=== PATIENT | male | born 1955 | race African-American/Black ===

== ENCOUNTER 2016-04-15 03:14 | Inpatient (IN) | payer MEDICARE ==
[2016-04-15] VITALS (18 sets, daily range): BP systolic 121–188; BP diastolic 70–97
[~2016-04-15] VITALS: Ht 167.6 cm; Wt 64.7 kg
[~2016-04-15 03:14] MED LIST: ANUSOL-HC 2.5%30 GM RC; ASPIRIN EC81 M1 PO; BAYER CHEWABLE81 MG PO; BENADRYL25 MG PO; CARAFATE1 G PO; CARBIDOPA-LEVO1 EACH PO; CARDIZEM CD180 MG PO; CARDIZEM CD240 MG PO; CARDIZEM CD360 MG PO; CARDIZEM LA360 MG PO; CARDIZEM120 MG PO; CATAPRES0.1 MG PO; COLACE100 MG PO; CORDARONE200 MG PO; COREG 3.1253.125 MG PO; COREG12.5 MG PO; COUMADIN5 MG PO; CYCLOBENZAPRINE10 MG PO; DESERYL100 MG PO; FLAGYL500 MG PO; HYDRALAZINE HCL25 MG PO; HYDRALAZINE HCL50 MG; HYDROCODONE-APA1 TAB PO; IMODIUM A-D2 MG PO; LASIX40 MG PO; LISINOPRIL5 MG PO; MEGACE400 MG/10 PO; MIRALAX17 GM PO; NEPHRO-VITE RX1 TAB PO; NITROSTAT0.4 MG SL; NORCO 7.5/325 T1 TA1 PO; OMNICEF300 MG PO; PRINIVIL20 MG PO; PROCRIT/EP10000 UNIT SQ; PROTONIX40 MG PO; PROVENTIL/2.5 MG/3 M INH; RENAGEL800 MG PO; RESTORIL15 MG PO; ROCALTROL0.25 MCG PO; TOPROL XL50 MG; TOPROL XL50 MG PO; TUMS500 MG PO; WATER PILL; ZOFRAN4 MG PO
[2016-04-15 04:08] LABS: BASOPHILS 0.5 % (0.0-2.0); EOSINOPHILS 3.5 % (0-7); HEMATOCRIT 34.5 % (42.0-54.0); HEMOGLOBIN 11.1 g/dL (13.5-17.5); IMMATURE GRANULOCYTES 0.2 % (0-5); LYMPHOCYTES 21.4 % (15-50); MCH 31.4 pg (26.0-34.0); MCHC 32.2 g/dL (31.0-37.0); MCV 97.5 fL (80.0-100.0); MEAN PLATELET VOLUME 12.2 fL (7.4-10.4); MONOCYTES 11.8 % (2-11); NEUTROPHILS 62.6 % (40-80); PLATELET COUNT 211 10x3/uL (130-400); RBC 3.54 10x6/uL (4.20-6.10); RDW 14.9 % (11.5-14.5); WBC 6.6 10x3/uL (4.8-10.8)
[2016-04-15 04:37] LABS: ALBUMIN 3.3 g/dL (3.4-5.0); BILIRUBIN - TOTAL 1.15 mg/dL (0.2-1.3); CALCIUM 8.9 mg/dL (8.5-10.1); CARBON DIOXIDE 23.4 mmol/L (21.0-32.0); CREATININE - SERUM 13.5 mg/dL (0.6-1.3); PROTEIN - SERUM 7.8 g/dL (6.4-8.2); TROPONIN-I 0.04 ng/mL (0.000-0.060)
[2016-04-15 04:43] LABS: ANION GAP 22.3 mmol/L (8-16); POTASSIUM - SERUM 6.7 mmol/L (3.5-5.1)
--- NOTE | 2016-04-15 05:36 | NUR ---
PT ARRIVED ON UNIT VIA STRETCHER, PT IS ALERT AND ORIENTED, ON 2L NC WITH 98% O2 SAT. PT HOOKED TO MONITORS, CALL LIGHT EXPLAINED TO PT, WILL CON'T TO MONITOR
[2016-04-15] MEDS ORDERED: CHRONULAC30 ML PO (09:57)
[2016-04-15] MEDS ORDERED: MIRALAX17 GM PO (09:58)
--- NOTE | 2016-04-15 13:14 | NUR ---
Mr. Saha had bedside hemodialysis today via his left upper arm av fistula. Average blood flow was 400 mls/minute. Net fluid removed was 3000 mls. Used a 1 k bath fot two hours. Post vital signs were: B/P: 150/87, HR: 90, Temp: 98.0, Resps: 18.
--- NOTE | 2016-04-15 15:04 | NUR ---
CM MET W/ PATIENT AFTER HIS HD. HE IS TIRED BUT ALERT AND ORIENTED. HE LIVES ALONE IN [place], [place]. HAS A BROTHER AND SISTER FROM [place]. HIS SISTER WILL PROVIDE TRANSPORTATION TO HOME AT [facility]. HE RECEIVES HD AT THE [facility] ON /. STATES HE IS COMPLAINT W/ HIS TREATMENTS. THE PATIENT DRIVES HIMSELF TO HD. HE STATES HE HAS TO WAIT SO LONG FOR THE TRANSPORT VAN AND IS VERY TIRED AFTER TREATMENT. HE DOES NOT UTILIZE H/H OR COMMUNITY SERVICES. HAS NO DME EXCEPT A CANE. BOTH KNEES HAVE BEEN REPLACED BUT DOES NOT REQUIRE AN ASSISTIVE DEVICE FOR AMBULATION. PATIENT DENIES ANY NEEDS AT PRESENT. CM WILL FOLLOW TO ASSIST IF APPROPRIATE.
--- NOTE | 2016-04-15 15:43 | NUR ---
* Is the patient Alert and Oriented? Yes 0 * How many steps to enter\exit or inside your home? NONE 0 * PCP DR BURRIS 0 * Pharmacy [facility] 0 * Preadmission Environment Home Alone 0 * ADLs Independent 0 * Equipment [place] 0 * Other Equipment NONE 0 * List name and contact numbers for known caregivers / representatives who currently or will assist patient after discharge: KATHERINE LYLES 0 * Community resources currently utilized None 0 * Please name any agencies selected above. N/A 0 * Additional services required to return to the preadmission environment? No 0 * Can the patient safely return to the preadmission environment? Yes 0 * Has this patient been hospitalized within the prior 30 days at any hospital? No 0
--- NOTE | 2016-04-15 17:07 | NUR ---
0943- HD STARTED, VSS, AFEBRILE. 1244- HD COMPLETE, 3L TAKEN OFF DURING HD REPORTED BY HD NURSE. VSS, AFEBRILE. PT TERRIE WELL.
--- NOTE | 2016-04-15 17:29 | NUR ---
K 3.8, CALLED TO DR FENTON ORDERED.
--- NOTE | 2016-04-15 19:16 | NUR ---
REPORT RECIEVED. ASSESSMENT COMPLETE PER FLOW SHEET. NO NEW FINDINGS. VSS PT GIVEN CRACKERS AND PEANUT BUTTER WITH SPRITE FOR PM SNACK. NEEDS MET.
--- NOTE | 2016-04-15 23:26 | NUR ---
REASSESSMENT COMPLETE, NO CHANGES NOTED, PT RESTING AT THIS TIME, NO NEEDS NOTED, VSS, CALL LIGHT IN REACH
[2016-04-16] VITALS (13 sets, daily range): BP systolic 124–178; BP diastolic 64–89; Ht 167.6 cm; Wt 64.7 kg
--- NOTE | 2016-04-16 01:15 | NUR ---
NO NEEDS NOTED AT THIS TIME, VSS, WILL CON'T TO MONITOR
--- NOTE | 2016-04-16 03:17 | NUR ---
REASSESSMENT COMPLETE PER FLOW SHEET. VSS. NO NEW CHANGES WILL CONTINUE TO MONTIOR.
[2016-04-16 04:36] LABS: BASOPHILS 0.2 % (0.0-2.0); EOSINOPHILS 1.4 % (0-7); HEMOGLOBIN 11.6 g/dL (13.5-17.5); IMMATURE GRANULOCYTES 0.2 % (0-5); LYMPHOCYTES 27.7 % (15-50); MCH 31.2 pg (26.0-34.0); MCHC 32.2 g/dL (31.0-37.0); MCV 96.8 fL (80.0-100.0); MEAN PLATELET VOLUME 11.4 fL (7.4-10.4); MONOCYTES 13.9 % (2-11); NEUTROPHILS 56.6 % (40-80); PLATELET COUNT 182 10x3/uL (130-400); RBC 3.72 10x6/uL (4.20-6.10); RDW 14.8 % (11.5-14.5)
[2016-04-16 04:44] LABS: WBC 4.8 10x3/uL (4.8-10.8)
[2016-04-16 05:15] LABS: CALC OSMOLALITY 293 mosm/kg (275-300); CALCIUM 8.5 mg/dL (8.5-10.1); CARBON DIOXIDE 31.2 mmol/L (21.0-32.0); CHLORIDE - SERUM 95 mmol/L (98-107); CKMB 0.4 U/L (0.0-3.6); CREATINE KINASE 61 UL (21-232); GLUCOSE 104 mg/dL (74-106); PHOSPHOROUS 2.9 mg/dL (2.5-4.9); POTASSIUM - SERUM 4.7 mmol/L (3.5-5.1); SODIUM 138 mmol/L (136-145); UREA NITROGEN 64 mg/dL (7-18); eGFR NON AFRICAN AMERICAN 6 mL/min (90-120)
--- NOTE | 2016-04-16 07:12 | NUR ---
REPORT RECIEVED. ASSESSMENT COMPLETE PER FLOW SHEET. VSS. PT AWAKE ALERT ORIENTED X4 UPON ENTERING ROOM. O2 VIA NC 2L O2 SAT 98% RR 16 NON LABORED BILAT ALL LOBES CLEAR. HEART S1S2 HR 81. BS ACTIVE X4. ABD SOFT NON TENDER. L ARM RESERVE FISTULA NOTED THRILL ANAD BRUIT PRESENT. PT ANURIC. NO EDEMA NOTED X4 EXTREMETIES. GIVEN COFFEE PER REQUEST. DENIES FURTHER NEEDS. WILL COTINUE TO MONITOR.
--- NOTE | 2016-04-16 07:32 | NUR ---
PT REPORT CALLED TO ELIZABETH VILLEGAS, PT TO TRANSFER TO ROOM 2130 VIA WHEELCHAIR.
--- NOTE | 2016-04-16 08:15 | NUR ---
RECEIVED PT TO ROOM 2130 VIA W/C IN STABLE CONDITION AAOX4 NAD NOTED REDERVE LT ARM FOR AV FISTULA + BRUIT + THRILL
--- NOTE | 2016-04-16 19:35 | NUR ---
RECEIVED REPORT, PT SLEEPING, ON ROOM AIR, NO -IV, [id number], HAS LAVF, CALL LIGHT IN REACH, WILL CONTINUE TO MONITOR
--- NOTE | 2016-04-16 23:44 | NUR ---
SHIRT PRESSER AT BEDSIDE FOR VS, NEEDS ADDRESSED. CALL LIGHT IN REACH.CONT TO MONITOR.
[2016-04-17] VITALS: BP 152/91
--- NOTE | 2016-04-17 01:55 | NUR ---
ASSESSMENT COMPLETE, SLEEPING, BED IS LOW, SRX2, CALL LIGHT IN REACH
[2016-04-17 04:00] VITALS: BP 155/90
[2016-04-17 05:47] LABS: CALC OSMOLALITY 297 mosm/kg (275-300); CALCIUM 8.6 mg/dL (8.5-10.1); CARBON DIOXIDE 29.6 mmol/L (21.0-32.0); CHLORIDE - SERUM 97 mmol/L (98-107); CKMB 0.5 U/L (0.0-3.6); CREATINE KINASE 62 UL (21-232); CREATININE - SERUM 12.2 mg/dL (0.6-1.3); GLUCOSE 91 mg/dL (74-106); POTASSIUM - SERUM 5.1 mmol/L (3.5-5.1); SODIUM 137 mmol/L (136-145); TROPONIN-I 0.052 ng/mL (0.000-0.060); UREA NITROGEN 79 mg/dL (7-18); eGFR NON AFRICAN AMERICAN 4 mL/min (90-120)
--- NOTE | 2016-04-17 07:21 | NUR ---
RECEIVED REPORT FROM NIGHT NURSE. PT SITTING UP IN BED. WAITING FOR DIALYSIS. THEN WILL BE DISCHARGED HOME.
[2016-04-17 08:49] VITALS: BP 158/73
--- NOTE | 2016-04-17 09:03 | NUR ---
Patient Name: JEANNETTE LYLES Encounter No: [id number] : 1955 Primary Insurance: MEDICARE A & B Anticipated DC Date: 04-17-2016 Planned Disposition: Home DCP follow-up note: CM MET WITH PT IN ROOM TO DISCUSS DISCHARGE NEEDS AND PLANNING. CM DISCUSSED AVAILABILITY OF HOME HEALTH, REHAB SERVICES AND MEDICAL EQUIPMENT. PT DENIES DISCHARGE NEEDS. SISTER TO ELEVATING GRADER OPERATOR FOR TRANSPORT HOME AT DISCHARGE. IMPORTANT MESSAGE FROM MEDICARE PROVIDED AND EXPLAINED. Dany Montero, CASE MANAGEMENT
[2016-04-17] MEDS ORDERED: NORVASC5 MG PO (10:33)
[2016-04-17 12:45] VITALS: BP 164/69
--- NOTE | 2016-04-17 15:56 | NUR ---
PATIENT PATHWAYS: [facility] MWF @ 6:00am. Med recs forwarded. BMM Dialysis Coordinator.
--- NOTE | 2016-04-17 18:46 | NUR ---
PT BACK FROM DIALYSIS, SIGNED DISCHARGE PAPERS, REMOVED TELEMTREY, WENT OVER DISCHARGE INSTRUCTION, BEING TAKEN DOWN VIA WHEELCHAIR
--- NOTE | 2016-04-18 07:03 | DS ---
PATIENT:JEANNETTE SAHA :55 MEDICAL RECORD: [id number] DISCHARGE SUMMARY ADMISSION DATE: 04/15/16 DISCHARGE DATE: 04/17/16 HISTORY OF PRESENT ILLNESS: Mr. Saha is a 60-year-old black male with end-stage renal disease, chronic dialysis 3 times weekly in [place], seen by me 2 weeks ago on dialysis rounds and stable. The patient acutely admitted the Friday prior to his Friday admission with shortness of breath, found to have a potassium over 6.5 and was admitted for his volume overload and hyperkalemia. HOSPITAL COURSE: The patient was emergently dialyzed and did well with this with reduction of his dry weight, normalization of his potassium. He had an echocardiogram that was essentially negative with a 50% ejection fraction. His other laboratory parameters were stable, and he was stable for discharge, otherwise, but no other major intercurrent problems. DISCHARGE DIAGNOSES: 1. Hyperkalemia. 2. Volume overload. 3. End-stage renal disease. 4. Hypertension. 5. Chronic anemia. 6. Poor compliance. PLAN: The patient will be discharged today back to [facility]. He will resume his home medications. We will see him weekly in dialysis. He will continue his renal diet and home meds. TRANSINT:[id number] Voice Confirmation ID: [id number] DOCUMENT ID: [id number] LILIAM HADDAD MD at 0703 CC: [id number] DICTATION DATE: 04/17/16 0741 PAINTER HAND: [id number] DIS IN 04/17/16 [address] [id number] [place] [address]
--- NOTE | 2016-05-07 08:17 | EC ---
PATIENT:JEANNETTE LYLES DATE OF SERVICE: 04/15/16 SEX: M MEDICAL RECORD: [id number] DATE OF : [birth year] LOCATION:D. D.213 AGE OF PATIENT: 60 ADMISSION DATE: 04/15/16 REFERRING PHYSICIAN: INTERPRETING PHYSICIAN: NICKY RODARTE M.D. ECHOCARDIOGRAM REPORT ECHO CHARGES 4 ECHO COMPLETE CLINICAL DIAGNOSIS: SOB ECHOCARDIOGRAPHIC MEASUREMENTS (adult normal given) AC root (d.<3.7cm) 3.1 LV Septum d (<1.2 cm> 1.3 Valve Excursion 1.8 LV Septum (systole) 1.9 Left Atria (s.<4.0cm> 4.1 LVPW d(<1.2cm) 1.4 RV (d.<2.3cm) 2.5 LVPW (sytole) 2.1 LV diastole(<5.6CM) 5.3 MV E-F(>70mm/sec) LV systole 2.8 LVOT Diameter 1.8 MV exc.(>10mm) Est.ejection fraction (50-75%) Pericardial Effusion N DOPPLER: LVIT A 115 E 82.0 LA RVSP 25.0 LVOT 138 AOP1/2T Asc. Ao 234 RVOT 113 RA PA 160 AV Gradient Peak 22.0 AV Mean 11.0 AV Area 1.5 MV Gradient Peak 6.8 MV Mean 2.6 MV Area COMMENTS: Nascar Pit Crew Person: Rayray LANDONOE Dianeticist:Kelly Rodarte TAPE# PACS DATE OF SERVICE: 04/15/2016 REFERRING PHYSICIAN: Dougie Frias MD. INDICATION: Dyspnea. DESCRIPTION: Left ventricle demonstrates left ventricular hypertrophy. No wall motion abnormalities are noted. This ejection is 50% to 55%. Mitral valve is structurally normal. There is no regurgitation or prolapse seen. Left atrium is mildly dilated. The aortic valve is trileaflet. Leaflets are slightly ECHOCARDIOGRAM REPORT [id number] JEANNETTE LYLES thickened. There is mild insufficiency seen. The peak gradient across the valve is 22 mmHg with a mean of 11 mmHg. Right ventricle is mildly dilated. Tricuspid valve is normal. There is mild regurgitation seen. Right atrium is normal size. There is no peripheral effusion noted. IMPRESSION: 1. Left ventricular hypertrophy with preserved ejection of 50% to 55%. 2. Mild aortic stenosis with mild insufficiency. 3. Mild tricuspid regurgitation. TRANSINT:[id number] Voice Confirmation ID: [id number] DOCUMENT ID: [id number] NICKY RODARTE M.D. at 0817 CC: [id number] DICTATION DATE: 04/16/16 0753 SCIENCE TEACHER: 04/16/16 1534 DIS IN 04/17/16 [place] [id number] [place] [id number]
== END 2016-04-17 19:02 | disposition home or self-care (01) | DRG 640 ==
LOC: D.ER 03:14 → D.ICU 04:58 → D.M2 04-16 07:49
PROVIDERS: Family Medicine; ADMIT Internal Medicine Nephrology
PROC: 5A1D00Z (ICD-10-PCS; principal; 2016-04-15)
DX: E87.5 Hyperkalemia (principal); N18.6 End stage renal disease; I12.0 Hypertensive chronic kidney disease with stage 5 chronic kidney disease or end stage renal disease; Z91.15 Patient's noncompliance with renal dialysis; Z99.2 Dependence on renal dialysis; D64.9 Anemia, unspecified; E87.70 Fluid overload, unspecified

== ENCOUNTER 2016-05-01 10:25 | Inpatient (IN) | payer MEDICARE ==
[2016-05-01] VITALS (10 sets, daily range): BP systolic 126–156; BP diastolic 72–89; Ht 167.6 cm; Wt 75.9 kg
[~2016-05-01] VITALS: Ht 167.6 cm; Wt 75.9 kg
[~2016-05-01 10:25] MED LIST changes: +CHRONULAC30 ML PO; +NORVASC5 MG PO
[2016-05-01 10:59] LABS: BASOPHILS 0.2 % (0.0-2.0); EOSINOPHILS 4.6 % (0-7); HEMATOCRIT 33.9 % (42.0-54.0); IMMATURE GRANULOCYTES 0.4 % (0-5); LYMPHOCYTES 15.2 % (15-50); MCH 31.1 pg (26.0-34.0); MCHC 32.4 g/dL (31.0-37.0); MCV 95.8 fL (80.0-100.0); MEAN PLATELET VOLUME 11.1 fL (7.4-10.4); NEUTROPHILS 64.6 % (40-80); PLATELET COUNT 173 10x3/uL (130-400); RBC 3.54 10x6/uL (4.20-6.10); RDW 14.3 % (11.5-14.5); WBC 5.1 10x3/uL (4.8-10.8)
[2016-05-01 11:17] LABS: APTT 34.1 SECONDS (22.8-39.4); INR 0.99 (0.85-1.17)
[2016-05-01 11:18] LABS: D-DIMER-QUANTITATIVE 0.83 ug/mLFEU (0.20-0.54)
[2016-05-01 11:40] LABS: ALBUMIN 3.4 g/dL (3.4-5.0); ALKALINE PHOSPHATASE 121 U/L (46-116); ALT (SGPT) 36 U/L (10-68); BILIRUBIN - TOTAL 0.61 mg/dL (0.2-1.3); CALC OSMOLALITY 288 mosm/kg (275-300); CALCIUM 8.1 mg/dL (8.5-10.1); CARBON DIOXIDE 30.2 mmol/L (21.0-32.0); CHLORIDE - SERUM 100 mmol/L (98-107); CREATININE - SERUM 6.7 mg/dL (0.6-1.3); GLUCOSE 104 mg/dL (74-106); POTASSIUM - SERUM 3.9 mmol/L (3.5-5.1); PROTEIN - SERUM 8.4 g/dL (6.4-8.2); SODIUM 141 mmol/L (136-145); UREA NITROGEN 36 mg/dL (7-18); eGFR NON AFRICAN AMERICAN 9 mL/min (90-120)
[2016-05-01 11:54] LABS: CHOL - HDL RATIO 3.1 ratio (2.3-4.9); CHOLESTEROL, TOTAL 123 mg/dL (0-200); CKMB 0.8 U/L (0.0-3.6); CREATINE KINASE 82 UL (21-232); HDL CHOLESTEROL 40 mg/dL (32-96); LDL CHOLESTEROL 37 mg/dL (0-100); LDL-HDL RATIO 0.9 ratio (1.5-3.5); TROPONIN-I 0.059 ng/mL (0.000-0.060)
[2016-05-01 11:55] LABS: PRO BNP 88639 pg/mL (0-125); TRIGLYCERIDE 234 mg/dL (30-200)
--- NOTE | 2016-05-01 14:48 | NUR ---
RECIEVED PT TO ICU VIA STRETCHER. CARDIZEM INFUSING AT 10MG/HR. CAF HR 74. ASSESSMENT PER FLOWSHEET. VOICES NO CO AT TIME. SR UP X 2.
[2016-05-01] MEDS ORDERED: CARDIZEM CD240 MG PO (15:01)
[2016-05-01] MEDS ORDERED: HYDROCODONE-APA1 TAB PO (15:02)
[2016-05-01] MEDS ORDERED: LISINOPRIL10 MG PO (15:04)
--- NOTE | 2016-05-01 15:30 | NUR ---
DR MILLER OFFICE CALLED WITH CONSULT.
--- NOTE | 2016-05-01 18:00 | NUR ---
EATING SUPPER NO CO AT TIME. SR UP X 2. CALL LIGHT WITH IN REACH.
--- NOTE | 2016-05-01 21:00 | NUR ---
NO VISITORS AT THIS TIME, PATIENT STATES HUNGRY. SNACK PROVIDED AND PATIENT NEEDS MET. NO FURTHER NEEDS AT THIS TIME, ALL VSS AND WILL CONTINUE TO MONITOR.
--- NOTE | 2016-05-01 22:36 | NUR ---
RECEIVED PATIENT AWAKE AND ALERT IN BED, ASSESSMENT COMPLETED PER FLOWSHEET. PATIENT IS AO X4, DEMEANOR IS PLEASANT AND COOPERATIVE. EYES PERRLA @ 3MM WITH BRISK RESPONSE, SCLERA IS WHITE. ORAL/NASAL MUCOSA IS MOIST AND INTACT, TONGUE IS MIDLINE. S1/S2 NOTED WITH PATIENT CONTROLLED AFIB WITH HR 74. BRATHING IS EVEN AND EFFORTLESS ON 2L VIA NC WITH O2 SAT 97%, LUNG SOUNDS CLEAR ALL LOBES. ABDOMEN IS SOFT AND ROUND, BOWEL SOUNDS ACTIVE X4. PATIENT IS ESRD AND ANURIC, NO PAIN OR SWELLING NOTED IN GROIN AREA. FULL ROM ALL EXTREMITIES WITH PATIENT AMBULATING WITHOUT ASSISTANCE, ALL PULSES PALPABLE WITH CAP REFILL <3 SEC. PIV NOTED R WRIST, PATENT WITH FLUIDS INFUSING. PATIENT DENIES PAIN OR OTHER NEEDS AT THIS TIME, ALL VSS AND WILL CONTINUE TO MONITOR.
--- NOTE | 2016-05-01 23:00 | NUR ---
REASSESSMENT COMPLETED PER FLOWSHEET, PATIENT RESTING IN BED WITH EYES CLOSED. S1/S2 NOTED WITH PATIENT CONTROLLED AFIB ON TELEMETRY, HR 76. BREATHING IS EVEN AND EFFORTLESS ON 2L VIA NC, OXYGEN SAT 99%. ALL PULSES PALPABLE, CAP REFILL <3 SEC. PATIENT DENIES PAIN OR OTHER NEEDS AT THIS TIME, ALL VSS AND WILL CONTINUE TO MONITOR.
[2016-05-02] VITALS (28 sets, daily range): BP systolic 106–177; BP diastolic 73–97
--- NOTE | 2016-05-02 01:10 | NUR ---
PATIENT RESTING IN BED WITH EYES CLOSED, BREATHING IS EVEN AND UNLABORED. PATIENT O2 SAT 96% ON 2L VIA NC. S1/S2 NOTED CONTROLLED AFIB ON TELEMETRY, HR 74. ALL PULSES PALPABLE, NO FURTHER NEEDS AT THIS TIME. ALL VSS AND WILL CONTINUE TO MONITOR.
--- NOTE | 2016-05-02 03:05 | NUR ---
REASSESSMENT COMPLETED PER FLOWSHEET, PATIENT RESTING IN BED WITH EYES CLOSED. S1/S2 NOTED WITH CONTROLLED AFIB NOTED ON TELEMETRY, HR 74. BREATHING IS EVEN AND UNLABORED ON 2L VIA NC, OXYGEN SAT 99%. ALL PULSES PALPABLE, CAP REFILL <3 SEC. DENIES PAIN OR OTHER NEEDS AT THIS TIME, ALL VSS AND WILL CONTINUE TO MONITOR.
--- NOTE | 2016-05-02 05:19 | NUR ---
PATIENT RESTING IN BED WITH EYES CLOSED, BREATHING IS EVEN AND UNLABORED. OXYGEN SAT 98% ON 2L VIA NC. FULL BED BATH/LINEN CHANGE PERFORMED, TOLERATED WELL.
--- NOTE | 2016-05-02 07:00 | NUR ---
REC'D CARE OF PT. A&O X3.
[2016-05-02] MEDS ORDERED: HYDRALAZINE HCL50 MG (07:44)
--- NOTE | 2016-05-02 07:47 | NUR ---
BREAKFAST TRAY SERVED.
[2016-05-02] MEDS ORDERED: HYDRALAZINE HCL50 MG PO (07:59)
[2016-05-02] MEDS ORDERED: CARDIZEM CD240 MG PO (07:59)
--- NOTE | 2016-05-02 08:00 | NUR ---
OOB TO BATHROOM WITH MINIMAL ASSISTANCE.
[2016-05-02] MEDS ORDERED: CATAPRES0.1 MG PO (08:04)
[2016-05-02] MEDS ORDERED: CHRONULAC30 ML PO (08:05)
[2016-05-02] MEDS ORDERED: COREG12.5 MG PO (08:06)
[2016-05-02] MEDS ORDERED: CYCLOBENZAPRINE10 MG PO (08:07)
[2016-05-02] MEDS ORDERED: DESERYL100 MG PO (08:07)
[2016-05-02] MEDS ORDERED: ONDANSETRON4 MG/2 M3 IV (08:08)
[2016-05-02] MEDS ORDERED: NITROSTAT0.4 MG SL (08:09)
[2016-05-02] MEDS ORDERED: NORVASC5 MG (08:10)
[2016-05-02] MEDS ORDERED: HYDROCODONE-APA1 TAB PO (08:10)
[2016-05-02] MEDS ORDERED: TUMS500 MG PO (08:11)
[2016-05-02] MEDS ORDERED: PROTONIX40 MG (08:11)
[2016-05-02] MEDS ORDERED: LISINOPRIL10 MG PO (08:12)
[2016-05-02] MEDS ORDERED: MEGACE400 MG/10 PO (08:13)
[2016-05-02] MEDS ORDERED: MIRALAX17 GM PO (08:14)
[2016-05-02] MEDS ORDERED: NEPHROCAPS SOFTG1 MG PO (08:15)
--- NOTE | 2016-05-02 11:30 | NUR ---
REASSESSMENT COMPLETED PER FLOW SHEET. NO ACUTE CHANGES. REMAISN ON RA. SATTING 99%. LUNGS CTA. RR 20 EVEN AND UNLABORED. RIGHT WRIST PIV, 22 GAUGE, CD&I. SWAB CAPS IN PLACE. CARDIZEM CONTINUES IN TO INFUSE AT 10CC PER HOUR. LEFT UPPER ARM FISTULA. BRUIT AND THRILL PRESENT. BS+ X4 QUADS. PPP. HERR. FOLLOWS COMMANDS. GETS UP OOB WITH MINIMAL ASSIST. SCD'S. CLWR. CPOC.
--- NOTE | 2016-05-02 11:44 | NUR ---
LUNCH TRAY SERVED
--- NOTE | 2016-05-02 12:00 | NUR ---
REMAINS NS ON CM. RATE IN 70'S TO 80'S/
--- NOTE | 2016-05-02 13:20 | NUR ---
RESTING WITH EYES CLOSED. VSS.
--- NOTE | 2016-05-02 14:54 | NUR ---
REMAINS ON CARDIZEM GTT AT 10 CC PER HOUR. CLWR. CPOC.
--- NOTE | 2016-05-02 14:54 | NUR ---
REASSESSMENT COMPLETED PER FLOW SHEET. NO ACUTE CHANGES. DENIES NEEDS. DENIES PAIN. NS ON CM RATE OF 80'S.
--- NOTE | 2016-05-02 16:40 | NUR ---
SITTING ON SOB. DENIES NEEDS. DENIES PAIN.
--- NOTE | 2016-05-02 17:22 | NUR ---
HYDRALAZINE GAVE FOR BP OF 177/91
--- NOTE | 2016-05-02 17:26 | NUR ---
PRN CLONIDINE GAVE FOR BP OF 177/91
--- NOTE | 2016-05-02 19:30 | NUR ---
ASSESSMENT COMPLETED PER FLOWSHEET, PATIENT RESTING IN BED WITH EYES CLOSED. PATIENT IS A0 X4, DEMEANOR IS PLEASANT AND COOPERATIVE. EYES PERRLA @ 3MM WITH BRISK RESPONSE, SCLERA IS WHITE. ORAL/NASAL MUCOSA IS MOIST AND INTACT, TONGUE MIDLINE. S1/S2 NOTED WITH PATIENT NSR ON TELEMETRY, HR 80 AND REGULAR. BREATHING IS EVEN AND UNLABORED ON 2L VIA NC, LUNG SOUNDS CLEAR ALL FUNG. ABDOMEN IS SOFT AND NON-TENDER, BOWEL SOUNDS ACTIVE X4. PATIENT AMBULATES SELF TO RESTROOM TO VOID, PATIENT IS ANURIC WITH ESRD. FULL ROM ALL EXTREMITIES, ALL PULSES PALPABLE WITH CAP REFILL <3 SEC. PIV NOTED R WRIST PATENT AND INFUSING, FISTULA L UPPER ARM WITH DRESSING CDI AND BRUIT/THRILL NOTED. PATIENT DENIES PAIN OR OTHER NEEDS AT THIS TIME, ALL VSS AND WILL CONTINUE TO MONITOR.
--- NOTE | 2016-05-02 21:00 | NUR ---
NO VISITORS AT THIS TIME, ALL HS MEDS GIVEN WITHOUT DIFFICULTY. NO FURTHER NEEDS AT THIS TIME, ALL VSS AND WILL CONTINUE TO MONITOR.
--- NOTE | 2016-05-02 22:47 | NUR ---
REASSESSMENT COMPLETED PER FLOWSHEET, PATIENT RESTING IN BED WITH EYES CLOSED. S1/S2 NOTED WITH PATIENT NSR ON TELEMETRY, HR 83 AND REGULAR. BREATHING IS EVEN AND UNLABORED ON 2L VIA NC, LUNG SOUNDS CLEAR ALL FUNG. PATIENT DENIES PAIN OR OTHER NEEDS AT THIS TIME, ALL VSS AND WILL CONTINUE TO MONITOR.
[2016-05-03] VITALS (9 sets, daily range): BP systolic 145–163; BP diastolic 76–87
--- NOTE | 2016-05-03 00:52 | NUR ---
PATIENT RESTING IN BED WITH EYES CLOSED, BREATHING IS EVEN AND UNLABORED. NSR ON TELEMETRY, HR 80 AND REGULAR. NO FURTHER NEEDS AT THIS TIME, ALL VSS AND WILL CONTINUE TO MONITOR.
--- NOTE | 2016-05-03 03:02 | NUR ---
REASSESSMENT COMPLETED PER FLOWSHEET, PATIENT RESTING IN BED WITH EYES CLOSED. NSR ON TELEMETRY WITH HR 82, RHYTHMIC AND REGULAR. BREATHING IS EVEN AND EFFORTLESS, OXYGEN SAT 99% ON 2L VIA NC. NO FURTHER NEEDS AT THIS TIME, ALL VSS AND WILL CONTINUE TO MONITOR.
--- NOTE | 2016-05-03 05:16 | NUR ---
PATIENT RESTING IN BED WITH EYES CLOSED, BREATHING IS EVEN AND UNLABORED. NSR ON TELEMETRY WITH HR 81, RHYTHMIC AND REGULAR. OXYGEN SAT 100% ON 2L VIA NC, ALL PULSES PALPABLE. NO FURTHER NEEDS AT THIS TIME, ALL VSS AND WILL CONTINUE TO MONITOR.
--- NOTE | 2016-05-03 09:21 | NUR ---
CASE MANAGEMENT AT BEDSIDE. NO NEEDS FOR CM SERVICES AT THIS TIME.
--- NOTE | 2016-05-03 09:26 | NUR ---
Is the patient Alert and Oriented? Yes 0 * How many steps to enter\exit or inside your home? 0 0 * PCP DR. HADDAD NO PCP 0 * Pharmacy [facility] IN [place], [place] 0 * Preadmission Environment Home Alone 0 * ADLs Independent 0 * Equipment None 0 * Community resources currently utilized None 0 * Additional services required to return to the preadmission environment? No 0 * Can the patient safely return to the preadmission environment? Yes 0 * Has this patient been hospitalized within the prior 30 days at any hospital? No PATIENT IS AWAKE AND ALERT. HE STATES HE LIVES AT HOME ALONE AND IS INDEPENDENT IN ALL HIS ADL'S. PATIENT STATES HE GETS DIALYSIS IN [place] ON //. HE STATES HE USUALLY DRIVES HIMSELF TO HIS DIALYSIS. HIS SISTER IS TO DRIVE HIM HOME TODAY AND ACCORDING TO THE NURSE IT IS SET UP FOR HIM TO GET DIALYSIS TODAY. HE IS TO CALL THE DIALYSIS CENTER ON HIS WAY HOME FOR A CHAIR TIME. PATIENT STATES THAT DR. HADDAD IS HIS ONLY PHYSICIAN. HE DOES NOT HAVE A PCP. HE GETS HIS MEDS FROM THE [facility] IN [place] OR [facility]. PATIENT HAD HOME HEALTH IN THE PAST WITH [facility]. HE DENIES USE OF ANY EQUIPMENT. PATIENT STATES THERE ARE NO STEPS TO ENTER HIS HOME. NO DISCHARGE NEEDS IDENTIFIED AT THIS TIME.
--- NOTE | 2016-05-03 09:47 | NUR ---
IV DC'D CATH FULLY INTACT. DC INSTRUCTIONS REVIEWED WITH PT. NO QUESTIONS. PT VERBALIZES UNDERSTANDING TO CALL [facility] ON THE WAY SO THEY CAN HAVE HIS CHAIR READY. PT DC'D HOME WITH FAMILY.
== END 2016-05-03 09:50 | disposition home or self-care (01) | DRG 308 ==
LOC: D.ER 10:25 → D.CVICU 13:35 → D.ICU 13:35 → D.CVICU 20:19
PROVIDERS: Family Medicine; ADMIT Internal Medicine Nephrology
DX: I48.0 Paroxysmal atrial fibrillation (principal); N18.6 End stage renal disease; I13.2 Hypertensive heart and chronic kidney disease with heart failure and with stage 5 chronic kidney disease, or end stage renal disease; I50.22 Chronic systolic (congestive) heart failure; I25.10 Atherosclerotic heart disease of native coronary artery without angina pectoris; I34.0 Nonrheumatic mitral (valve) insufficiency; E83.39 Other disorders of phosphorus metabolism; Z99.2 Dependence on renal dialysis; Z87.891 Personal history of nicotine dependence

== ENCOUNTER 2016-07-21 18:57 | Emergency (ER) | payer MEDICARE ==
[2016-05-01 18:12] VITALS: BMI 24.2
[~2016-07-21 18:57] MED LIST changes: +HYDRALAZINE HCL50 MG PO; +LISINOPRIL10 MG PO; +NEPHROCAPS SOFTG1 MG PO; +NORVASC5 MG; +ONDANSETRON4 MG/2 M3 IV; +PROTONIX40 MG
[2016-07-21 19:40] LABS: BASOPHILS 0.2 % (0-2); EOSINOPHILS 5.1 % (0-7); HEMATOCRIT 37.8 % (42.0-54.0); HEMOGLOBIN 11.9 g/dL (13.5-17.5); IMMATURE GRANULOCYTES 0.2 % (0-5); LYMPHOCYTES 26.8 % (15-50); MCH 31.5 pg (26.0-34.0); MCHC 31.5 g/dL (31.0-37.0); MEAN PLATELET VOLUME 11.5 fL (7.4-10.4); MONOCYTES 8.2 % (2-11); NEUTROPHILS 59.5 % (40-80); PLATELET COUNT 203 10x3/uL (130-400); RBC 3.78 10x6/uL (4.20-6.10); RDW 19.2 % (11.5-14.5); WBC 6.5 10x3/uL (4.8-10.8)
[2016-07-21 20:16] LABS: ALBUMIN 3.5 g/dL (3.4-5.0); ANION GAP 21.4 mmol/L (8-16); BILIRUBIN - TOTAL 0.82 mg/dL (0.2-1.3); CALCIUM 9.7 mg/dL (8.5-10.1); CARBON DIOXIDE 20.9 mmol/L (21.0-32.0); CREATININE - SERUM 13.7 mg/dL (0.6-1.3); PROTEIN - SERUM 7.8 g/dL (6.4-8.2)
[2016-07-21 20:20] LABS: POTASSIUM - SERUM 6.3 mmol/L (3.5-5.1)
== END 2016-07-22 00:20 | disposition home or self-care (01) ==
LOC: D.ER 18:57
PROVIDERS: Emergency Medicine
DX: K52.9 Noninfective gastroenteritis and colitis, unspecified (principal); E87.5 Hyperkalemia; K21.9 Gastro-esophageal reflux disease without esophagitis; I12.9 Hypertensive chronic kidney disease with stage 1 through stage 4 chronic kidney disease, or unspecified chronic kidney disease; N18.9 Chronic kidney disease, unspecified; F17.200 Nicotine dependence, unspecified, uncomplicated

== ENCOUNTER 2017-02-07 13:28 | Inpatient (IN) | payer MEDICARE ==
[~2017-02-07] VITALS: Ht 167.6 cm; Wt 65.3 kg
--- NOTE | 2017-02-07 13:45 | NUR ---
PT REC'D TO ROOM VIA . ACCOMPAINED BY BROTHER AND ADMISSION STAFF. AAOX4. NO TROUBLE AMBULATING FROM WC TO BED. TELEMETRY APPLIED BY JANIS BARRERA. RUNNING 90 SR ON THE MONITOR PER [employer], CHIEF SAFETY OFFICER. LUNG SOUNDS CLEAR AND EQUAL BILAT. BOWEL SOUNDS ACTIVE X4 QUADS. NO PAIN UPON DEEP PALPATION. STATES HIS PAIN IS MORE LIKE HEARTBURN. STATES HE HAD A BM THIS AM THAT WAS BLACK. SKIN CDI. PIV SITED TO R FOREARM. X1 ATTEMPT WITH 20GUAGE IV CATHETER. L UPPER ARM AV FISTULA NOTED WITH THRILL PRESENT. BED LOW, CALL LIGHT IN REACH, DENIES NEEDS. CPOC.
[2017-02-07] MEDS ORDERED: ZYLOPRIM100 MG PO (13:52)
[2017-02-07] MEDS ORDERED: BACTROBAN NASAL1 GM NASAL (13:53)
[2017-02-07] MEDS ORDERED: NEPHRO-VITE RX1 TAB PO (13:53)
[2017-02-07] MEDS ORDERED: GABAPENTIN100 MG PO (13:55)
[2017-02-07 14:24] LABS: BASOPHILS 0.7 % (0-2); EOSINOPHILS 4.2 % (0-7); HEMATOCRIT 21.4 % (42.0-54.0); IMMATURE GRANULOCYTES 0.1 % (0-5); LYMPHOCYTES 15.2 % (15-50); MCH 33.8 pg (26.0-34.0); MCHC 32.2 g/dL (31.0-37.0); MCV 104.9 fL (80.0-100.0); MEAN PLATELET VOLUME 10.1 fL (7.4-10.4); MONOCYTES 14.4 % (2-11); NEUTROPHILS 65.4 % (40-80); RBC 2.04 10x6/uL (4.20-6.10); WBC 7.6 10x3/uL (4.8-10.8)
[2017-02-07 14:45] LABS: ANION GAP 18.2 mmol/L (8-16); CALCIUM 8.6 mg/dL (8.5-10.1); CARBON DIOXIDE 27.7 mmol/L (21.0-32.0); CREATININE - SERUM 5.6 mg/dL (0.6-1.3); POTASSIUM - SERUM 3.9 mmol/L (3.5-5.1)
[2017-02-07 14:46] LABS: HEMOGLOBIN 6.9 g/dL (13.5-17.5); PLATELET COUNT 317 10x3/uL (130-400)
[2017-02-07 16:20] VITALS: BP 180/92
--- NOTE | 2017-02-07 19:30 | NUR ---
PT AWAKE AND ALERT ORIENTED X 3 LUNGS CLAER BILATERALLY HRRR SR RATE OF 99 PER TELEMETRY. ABDOMEN FIRM AND TENDER TO PALPATION. PT NOTED TO HAVE HAD HD TODAY AVF NOTED TO LEFT UPPER ARM + THRILL AND BRUIT NOTED. CALL LIGHTIN REACH ANEMIA NOTED H&H 6.9 AND 21.4 PT IS JEHOVAHS WITNESS NAD REFUSES BLOOD TRANSFUSION FOR YARSANISM REASONS.
[2017-02-07 20:00] VITALS: BP 148/72
--- NOTE | 2017-02-07 20:40 | NUR ---
CALL RECIEVED FROM LAB [facility] H&H 5.3 AND 16.9 CALL PLACED TO OYSTER GROWER MD. MICHAEL CURTIS OYSTER GROWER FOR DR HADDAD. PT COMPLAINS OF CRAMPING TO FEET AND LEGS STATES THAT HD TODAY HAD REMOVED 3KILOS.
[2017-02-07 20:49] LABS: HEMATOCRIT 16.9 % (42.0-54.0); HEMOGLOBIN 5.3 g/dL (13.5-17.5)
--- NOTE | 2017-02-07 21:50 | NUR ---
BRAYAN CURTIS RETURNED CALL NOTIFIED OF CRITICAL LABS AND PT CRAMPING AND NO PAIN MEDS NOTED NEW ORDERS OBTAINED FOR HYDROCODONE 5/325 MG 2 TABS PO Q 4 HRS NEEDED. ALSO ASKED PT AGAIN ABOUT BLOOD TRANSFUSION AND AGAIN PT REFUSED ON RASTAFARI REASONS. REQUESTED THAT LABS BE DRAWN IN PEDIATRIC TUBES.
[2017-02-07 23:52] VITALS: BP 151/79
--- NOTE | 2017-02-08 02:14 | NUR ---
PT RESTING WELL IN BED WITH NO DISTRESS NOTED VOICES ALL NEEDS TO STAFF. CALL LIGHT IN REACH SIDE RAILS UP X 2
[2017-02-08 02:23] LABS: ALBUMIN 2.8 g/dL (3.4-5.0); ANION GAP 15.8 mmol/L (8-16); BILIRUBIN - TOTAL 0.29 mg/dL (0.2-1.3); CALCIUM 8.1 mg/dL (8.5-10.1); CARBON DIOXIDE 26.3 mmol/L (21.0-32.0); POTASSIUM - SERUM 4.1 mmol/L (3.5-5.1)
[2017-02-08 02:25] LABS: CREATININE - SERUM 7.1 mg/dL (0.6-1.3)
[2017-02-08 02:32] LABS: BASOPHILS 0.3 % (0-2); EOSINOPHILS 4.6 % (0-7); IMMATURE GRANULOCYTES 0.2 % (0-5); LYMPHOCYTES 22.4 % (15-50); MCH 33.1 pg (26.0-34.0); MCHC 31.8 g/dL (31.0-37.0); MCV 104.2 fL (80.0-100.0); MEAN PLATELET VOLUME 10.1 fL (7.4-10.4); MONOCYTES 12.8 % (2-11); NEUTROPHILS 59.7 % (40-80); RDW 16.8 % (11.5-14.5); WBC 6.3 10x3/uL (4.8-10.8)
[2017-02-08 02:33] LABS: RBC 1.66 10x6/uL (4.20-6.10)
[2017-02-08 02:34] LABS: HEMATOCRIT 17.3 % (42.0-54.0); HEMOGLOBIN 5.5 g/dL (13.5-17.5); PLATELET COUNT 208 10x3/uL (130-400)
[2017-02-08 02:39] LABS: PROTEIN - SERUM 6.7 g/dL (6.4-8.2)
--- NOTE | 2017-02-08 03:00 | NUR ---
PATIENT IS AWAKE, ALERT AND ORIENTED X'S 4. RESPIRATIONS ARE EVEN AND UNLABORED. PATIENT DENIES NEEDS AT THIS TIME. ADMISSION ASSESSMENT COMPLETED.
[2017-02-08 03:37] VITALS: BMI 23.3
[2017-02-08 03:49] VITALS: BP 160/86
--- NOTE | 2017-02-08 04:44 | NUR ---
CRITICAL LAB CALLED H&H 5.5 AND 17.3 IMPROVED FROM PREVIOUS CHECK.
--- NOTE | 2017-02-08 07:40 | NUR ---
REPORT RECIEVED, ASSUMED CARE OF PT. SITTING UP IN BED, DENIES ANY NEEDS. BED IN LOWEST POSITION, SIDE RAILS UP X 2, CALL LIGHT WITHIN REACH.
[2017-02-08 08:34] LABS: HEMATOCRIT 18.4 % (42.0-54.0); HEMOGLOBIN 5.9 g/dL (13.5-17.5)
[2017-02-08 08:43] LABS: INR 1.08 (0.85-1.17); PROTIME 13.6 SECONDS (11.6-15.0)
[2017-02-08 09:26] VITALS: BP 151/79
[2017-02-08 11:56] LABS: % SATURATION 17 % (15-55); IRON 50 ug/dl (35-150); TOTAL IRON BIND CAPACITY 280 ug/dl (260-445); UNSAT IRON BIND CAPACITY 230 ug/dl (150-375)
[2017-02-08 12:19] VITALS: BP 152/77
[2017-02-08 15:51] VITALS: BP 145/75
--- NOTE | 2017-02-08 19:10 | NUR ---
REPORT RECEIVED FROM MANAGER BIOSTATISTICS NURSE. CALL LIGHT IN REACH.
--- NOTE | 2017-02-08 19:41 | NUR ---
ANEESH PO PER C/O PAIN. SON IN ROOM. CALL LIGHT IN REACH.
[2017-02-08 20:00] VITALS: BP 138/69
--- NOTE | 2017-02-08 21:30 | NUR ---
ASSESSMENT COMPLETED. DENIES NEEDS. VIOLETTA MEJIA DC'D PER MD ORDER. CALL LIGHT IN REACH. WILL CONTINUE WITH PLAN OF CARE.
--- NOTE | 2017-02-08 22:15 | NUR ---
RECLINER TAKEN IN ROOM FOR PATIENT'S SON. NO OTHER NEEDS VOICED AT THIS TIME. CALL LIGHT IN REACH.
[2017-02-09] VITALS: BP 137/72
--- NOTE | 2017-02-09 00:02 | NUR ---
EYES CLOSED. RESP EVEN AND UNLABORED. CALL LIGHT IN REACH.
--- NOTE | 2017-02-09 02:07 | NUR ---
REQUESTING PAIN PILL. ANEESH PO. CALL LIGHT IN REACH.
--- NOTE | 2017-02-09 04:29 | NUR ---
RESTING WITH EYES CLOSED. RESP EVEN AND UNLABORED. CALL LIGHT IN REACH.
[2017-02-09 04:30] LABS: BASOPHILS 0.5 % (0-2); EOSINOPHILS 4.5 % (0-7); HEMATOCRIT 20.1 % (42.0-54.0); IMMATURE GRANULOCYTES 0.3 % (0-5); LYMPHOCYTES 26.7 % (15-50); MCH 33.9 pg (26.0-34.0); MCHC 31.8 g/dL (31.0-37.0); MEAN PLATELET VOLUME 10.4 fL (7.4-10.4); MONOCYTES 10.9 % (2-11); NEUTROPHILS 57.1 % (40-80); PLATELET COUNT 234 10x3/uL (130-400); RDW 17.2 % (11.5-14.5); WBC 6.3 10x3/uL (4.8-10.8)
[2017-02-09 04:34] LABS: HEMOGLOBIN 6.4 g/dL (13.5-17.5); MCV 106.3 fL (80.0-100.0); RBC 1.89 10x6/uL (4.20-6.10)
[2017-02-09 04:45] LABS: CALCIUM 8.6 mg/dL (8.5-10.1)
[2017-02-09 05:03] LABS: CREATININE - SERUM 10.4 mg/dL (0.6-1.3)
--- NOTE | 2017-02-09 06:00 | NUR ---
RN NOTE: PT RESTING QUIETLY IN SUPINE POSITION. IV IN RIGHT FA SALINE LOCKED. WILL CONTINUE TO MONITOR FOR NEEDS.
--- NOTE | 2017-02-09 06:00 | NUR ---
PT RESTING IN SUPINE POSITION WITH EYES CLOSED AND UNLABORED BREATHING. RIGHT MIDLINE IV PATENT WITN 1/2 NS INFSUING AT 30 ML / HR. WILL CONTINUE TO MONITOR FOR NEEDS. CALL LIGHT WITHIN REACH.
--- NOTE | 2017-02-09 06:06 | NUR ---
PROTONIX PO. NO CHANGES IN INITIAL ASSESSMENT. CALL LIGHT IN REACH. WILL CONTINUE WITH PLAN OF CARE.
[2017-02-09 06:29] VITALS: BP 159/84
--- NOTE | 2017-02-09 08:00 | NUR ---
ASSESSMENT PER FLOW SHEET.PT WITHOUT DISTRESS.CALL LIGHT IN REACH
[2017-02-09 08:27] VITALS: BP 159/81
[2017-02-09 09:55] VITALS: Ht 167.6 cm; Wt 65.3 kg
[2017-02-09] MEDS ORDERED: CARAFATE1 G/10 ML PO (11:24)
[2017-02-09] MEDS ORDERED: PROTONIX40 MG PO (11:24)
[2017-02-09 11:41] VITALS: BP 169/75
--- NOTE | 2017-02-09 11:51 | NUR ---
DISCHARGE INSTRUCTIONS,STATES UNDERSTANDING.IV DCD WITH CATH TIP INTACT.
[2017-02-12 06:12] LABS: FOLATE (FOLIC ACID) - SERUM 11.8 ng/mL (>3.0)
== END 2017-02-09 11:54 | disposition home or self-care (01) | DRG 368 ==
LOC: D.MS 13:28
PROVIDERS: Internal Medicine Gastroenterology; Internal Medicine Nephrology; ADMIT Internal Medicine Nephrology
PROC: 0DB78ZX Excision of Stomach, Pylorus, Via Natural or Artificial Opening Endoscopic, Diagnostic (ICD-10-PCS; 2017-02-08)
PROC: 0DB38ZX Excision of Lower Esophagus, Via Natural or Artificial Opening Endoscopic, Diagnostic (ICD-10-PCS; principal; 2017-02-08 14:00)
DX: K22.6 Gastro-esophageal laceration-hemorrhage syndrome (principal); N18.6 End stage renal disease; D62 Acute posthemorrhagic anemia; I12.0 Hypertensive chronic kidney disease with stage 5 chronic kidney disease or end stage renal disease; K44.9 Diaphragmatic hernia without obstruction or gangrene; D63.1 Anemia in chronic kidney disease; I48.91 Unspecified atrial fibrillation; E83.39 Other disorders of phosphorus metabolism; B19.20 Unspecified viral hepatitis C without hepatic coma; Z86.718 Personal history of other venous thrombosis and embolism; K22.11 Ulcer of esophagus with bleeding; K29.70 Gastritis, unspecified, without bleeding

== ENCOUNTER 2017-02-23 21:44 | Inpatient (IN) | payer MEDICARE ==
[~2017-02-23] VITALS: Ht 167.6 cm; Wt 60.1 kg
--- NOTE | ~2017-02-23 | EC ---
PATIENT:JEANNETTE LYLES DATE OF SERVICE: 02/23/17 SEX: M MEDICAL RECORD: [id number] DATE OF : 55 LOCATION:D. D.212 AGE OF PATIENT: 61 ADMISSION DATE: 02/23/17 REFERRING PHYSICIAN: INTERPRETING PHYSICIAN: CHYNA GARCIA MD ECHOCARDIOGRAM REPORT ECHO CHARGES 4 ECHO COMPLETE CLINICAL DIAGNOSIS: ATRIAL FIB ECHOCARDIOGRAPHIC MEASUREMENTS (adult normal given) AC root (d.<3.7cm) 3.2 cm LV Septum d (<1.2 cm> 1.2 cm Valve Excursion 1.1 cm LV Septum (systole) 1.8 cm Left Atria (s.<4.0cm> 4.0 cm LVPW d(<1.2cm) 1.5 cm RV (d.<2.3cm) 3.4 cm LVPW (sytole) 1.8 cm LV diastole(<5.6CM) 5.3 cm MV E-F(>70mm/sec) cm LV systole 3.0 cm LVOT Diameter 1.8 cm MV exc.(>10mm) 1.4 cm Est.ejection fraction (50-75%) % Pericardial Effusion N DOPPLER: LVIT cm/sec A cm/sec E cm/sec LA cm/sec RVSP 54 mmHg LVOT 108 cm/sec AOP1/2T 352 m/s Asc. Ao 206 cm/sec RVOT 90 cm/sec RA cm/sec PA 115 cm/sec AV Gradient Peak 16.96mmHg AV Mean 7.58 mmHg AV Area 1.9 cm MV Gradient Peak 17.34mmHg MV Mean 8.06 mmHg MV Area cm COMMENTS: Production Grader: Kelly CAMPO [employer] Documents Librarian: 4 Dr. Garcia TAPE# PACS DATE OF SERVICE: 03/04/2017 PROCEDURE: Transthoracic echocardiogram. FINDINGS: 1. Left ventricle has evidence of mild left ventricular hypertrophy. Ejection fraction 70%. 2. The left atrium is mildly dilated. 3. The aortic valve has mild sclerosis and mild aortic insufficiency. 4. The mitral valve has moderate to severe mitral regurgitation. ECHOCARDIOGRAM REPORT [id number] JEANNETTE LYLES 5. The tricuspid valve has severe tricuspid regurgitation. Estimated right ventricular systolic pressures of 50 to 55 mmHg, moderate pulmonary hypertension. 6. Pulmonic valve is not well visualized. 7. The right atrium is mildly dilated. 8. The right ventricle is mildly dilated with normal function. IMPRESSION: The patient has evidence of severe mitral and tricuspid regurgitation with hyperdynamic left ventricular function and mild AI and evidence of left ventricular hypertrophy. TRANSINT:[id number] Voice Confirmation ID: [id number] DOCUMENT ID: [id number] 03/07/2017 Edited to correct date of service, dmm. CHYNA GARCIA MD at 1522 CC: [id number] DICTATION DATE: 03/06/17924 CENTRAL SUPPLY MANAGER: 03/06/17 1101 ADM IN [facility] [address] [place] [address]
--- NOTE | ~2017-02-23 | DS ---
PATIENT:JEANNETTE SAHA :55 MEDICAL RECORD: [id number] DISCHARGE SUMMARY ADMISSION DATE: 02/23/17 DISCHARGE DATE: 03/18/17 HISTORY OF PRESENT ILLNESS: Mr. Saha is a 61-year-old black male with end-stage renal disease, chronic dialysis, a known Sabianist, had an admission here last year with GI bleeding, failed due to an AV malformation down to a hemoglobin of 3. He survived that hospitalization and has been stable as an outpatient seen by me on a monthly basis on [facility], admitted with a hemoglobin of 5 and melanotic stools. HOSPITAL COURSE: The patient was put in the intensive care unit declined any transfusions due to his Sabianist status. He underwent an emergent EGD by Dr. Rincon finding a small gastric polyp that had some evidence of recent bleeding. This area was cauterized. He was placed on maximum therapy of erythropoietin, iron, folate, B12, and was transferred to the floor with stabilization. His hemoglobin alexa to approximately 6.5, but stabilized there. He was asymptomatic, seen by Dr. Couch who had seen him in the past with some other recommendations made, but no major changes made. He was placed on Ogen for his AV malformation. He was followed throughout his hospitalization by hematology, myself, and GI. At the time of discharge, his last hemoglobin was 6.3. He was asymptomatic. He was ambulatory, no further bleeding, no melena and he was requesting discharge. DISCHARGE DIAGNOSES: 1. Gastrointestinal bleeding, possible gastric source, declining transfusion due to adventism grounds. 2. End-stage renal disease. 3. Hypertension. 4. Chronic anemia, erythropoietin dependent anemia. PLAN: The patient will be discharged today. He will be in [facility] tomorrow. I will speak with our recreation facility manager concerning his outpatient Epogen and iron dosing. He will continue his renal diet, ambulation as tolerated. He will continue his home meds plus Ogen 1.5 mg daily as well as his other home meds including his carvedilol 25 b.i.d., clonidine 0.1 p.r.n., Neurontin 100 p.r.n., Zyloprim 100 mg daily, Desyrel 50 at h.s., Nephro-Jamison 1 daily, Carafate 1 gram h.s., guaifenesin p.r.n., Protonix 40 mg daily, Synthroid 25 mcg daily, diltiazem 180 daily, PhosLo 2 t.i.d., and lisinopril 10 b.i.d., as well as his chronic hydrocodone/APAP prescription. TRANSINT:[id number] Voice Confirmation ID: [id number] DOCUMENT ID: [id number] LILIAM HADDAD MD at 0739 CC: [id number] DICTATION DATE: 03/18/17 0804 MUSHROOM CULTIVATOR: 03/18/17 1317 DIS IN 03/18/17 [facility] [address] [place] [address]
[~2017-02-23 21:44] MED LIST changes: +BACTROBAN NASAL1 GM NASAL; +CARAFATE1 G/10 ML PO; +GABAPENTIN100 MG PO; +ZYLOPRIM100 MG PO
[2017-02-23 22:25] LABS: BASOPHILS 0.4 % (0-2); EOSINOPHILS 5.1 % (0-7); HEMATOCRIT 20.3 % (42.0-54.0); IMMATURE GRANULOCYTES 0.2 % (0-5); LYMPHOCYTES 17.2 % (15-50); MCH 34.2 pg (26.0-34.0); MCV 103.6 fL (80.0-100.0); MEAN PLATELET VOLUME 9.7 fL (7.4-10.4); MONOCYTES 7.7 % (2-11); NEUTROPHILS 69.4 % (40-80); RDW 17.7 % (11.5-14.5); WBC 10.2 10x3/uL (4.8-10.8)
[2017-02-23 22:29] LABS: HEMOGLOBIN 6.7 g/dL (13.5-17.5); PLATELET COUNT 294 10x3/uL (130-400); RBC 1.96 10x6/uL (4.20-6.10)
[2017-02-23 22:39] LABS: ALBUMIN 2.9 g/dL (3.4-5.0); ALKALINE PHOSPHATASE 138 U/L (46-116); ALT (SGPT) 91 U/L (10-68); BILIRUBIN - TOTAL 1.16 mg/dL (0.2-1.3); CALC OSMOLALITY 281 mosm/kg (275-300); CALCIUM 8.3 mg/dL (8.5-10.1); CARBON DIOXIDE 13.8 mmol/L (21.0-32.0); CHLORIDE - SERUM 91 mmol/L (98-107); CREATININE - SERUM 13.5 mg/dL (0.6-1.3); GLUCOSE 105 mg/dL (74-106); SODIUM 132 mmol/L (136-145); UREA NITROGEN 60 mg/dL (7-18); eGFR NON AFRICAN AMERICAN 4 mL/min (90-120)
[2017-02-23 22:48] LABS: CKMB 1.1 U/L (0.0-3.6); CREATINE KINASE 164 UL (21-232); TROPONIN-I 0.021 ng/mL (0.000-0.060)
[2017-02-24 01:59] VITALS: BMI 23.7
[2017-02-24 04:00] VITALS: BP 115/62
[2017-02-24 06:20] LABS: BASOPHILS 0.1 % (0-2); HEMATOCRIT 21.4 % (42.0-54.0); IMMATURE GRANULOCYTES 0.4 % (0-5); MCH 33.7 pg (26.0-34.0); MCHC 32.7 g/dL (31.0-37.0); MCV 102.9 fL (80.0-100.0); MEAN PLATELET VOLUME 10.4 fL (7.4-10.4); MONOCYTES 5.2 % (2-11); NEUTROPHILS 83.3 % (40-80); PLATELET COUNT 322 10x3/uL (130-400); RBC 2.08 10x6/uL (4.20-6.10); RDW 17.8 % (11.5-14.5); WBC 11.2 10x3/uL (4.8-10.8)
[2017-02-24 06:56] LABS: CALC OSMOLALITY 281 mosm/kg (275-300); CALCIUM 8.9 mg/dL (8.5-10.1); CARBON DIOXIDE 10.4 mmol/L (21.0-32.0); CHLORIDE - SERUM 92 mmol/L (98-107); CKMB 1.4 U/L (0.0-3.6); CREATINE KINASE 185 UL (21-232); CREATININE - SERUM 14.2 mg/dL (0.6-1.3); GLUCOSE 114 mg/dL (74-106); MAGNESIUM - SERUM 2.4 mg/dL (1.8-2.4); PHOSPHOROUS 5.9 mg/dL (2.5-4.9); SODIUM 130 mmol/L (136-145); UREA NITROGEN 68 mg/dL (7-18); eGFR NON AFRICAN AMERICAN 4 mL/min (90-120)
[2017-02-24 06:57] LABS: TROPONIN-I < 0.017 ng/mL (0.000-0.060)
[2017-02-24 07:01] LABS: POTASSIUM - SERUM 6.9 mmol/L (3.5-5.1)
[2017-02-24 08:04] VITALS: BP 130/75
[2017-02-24 13:10] VITALS: BMI 23.7
[2017-02-24 16:28] VITALS: BP 112/66
[2017-02-24 20:00] VITALS: BP 90/59
[2017-02-25 04:00] VITALS: BP 146/70
[2017-02-25 08:04] LABS: BASOPHILS 0.3 % (0-2); EOSINOPHILS 4.3 % (0-7); HEMATOCRIT 22.4 % (42.0-54.0); IMMATURE GRANULOCYTES 0.3 % (0-5); LYMPHOCYTES 21.5 % (15-50); MEAN PLATELET VOLUME 9.9 fL (7.4-10.4); MONOCYTES 9.9 % (2-11); NEUTROPHILS 63.7 % (40-80); PLATELET COUNT 283 10x3/uL (130-400); RBC 2.24 10x6/uL (4.20-6.10); RDW 17.2 % (11.5-14.5)
[2017-02-25 08:14] VITALS: BP 139/69
[2017-02-25 08:18] LABS: WBC 6.6 10x3/uL (4.8-10.8)
[2017-02-25 08:21] LABS: ALBUMIN 2.9 g/dL (3.4-5.0); BILIRUBIN - TOTAL 0.86 mg/dL (0.2-1.3); CALCIUM 8.3 mg/dL (8.5-10.1); HEMOGLOBIN 7.4 g/dL (13.5-17.5); MAGNESIUM - SERUM 2.1 mg/dL (1.8-2.4); PHOSPHOROUS 4.8 mg/dL (2.5-4.9); PROTEIN - SERUM 7.4 g/dL (6.4-8.2)
[2017-02-25 08:22] LABS: ANION GAP 20.2 mmol/L (8-16); CARBON DIOXIDE 24.8 mmol/L (21.0-32.0); CREATININE - SERUM 10.2 mg/dL (0.6-1.3)
[2017-02-25 08:38] LABS: % SATURATION 9 % (15-55); IRON 23 ug/dl (35-150); TOTAL IRON BIND CAPACITY 246 ug/dl (260-445); UNSAT IRON BIND CAPACITY 223 ug/dl (150-375)
[2017-02-25 12:42] VITALS: BP 143/72
[2017-02-25 16:37] VITALS: BP 125/64
[2017-02-25 20:00] VITALS: BP 148/67
[2017-02-26 04:00] VITALS: BP 142/70
[2017-02-26 06:44] LABS: BASOPHILS 0.2 % (0-2); EOSINOPHILS 6.6 % (0-7); IMMATURE GRANULOCYTES 0.9 % (0-5); LYMPHOCYTES 24.9 % (15-50); MCH 32.8 pg (26.0-34.0); MCHC 32.4 g/dL (31.0-37.0); MCV 101.1 fL (80.0-100.0); MEAN PLATELET VOLUME 9.5 fL (7.4-10.4); MONOCYTES 12.3 % (2-11); NEUTROPHILS 55.1 % (40-80); RDW 17.2 % (11.5-14.5); WBC 5.8 10x3/uL (4.8-10.8)
[2017-02-26 06:54] LABS: HEMOGLOBIN 6.1 g/dL (13.5-17.5); RBC 1.86 10x6/uL (4.20-6.10)
[2017-02-26 06:55] LABS: HEMATOCRIT 18.8 % (42.0-54.0); PLATELET COUNT 210 10x3/uL (130-400)
[2017-02-26 07:04] LABS: ANION GAP 19.9 mmol/L (8-16); CALCIUM 7.7 mg/dL (8.5-10.1); CARBON DIOXIDE 22.4 mmol/L (21.0-32.0); PHOSPHOROUS 4.9 mg/dL (2.5-4.9); POTASSIUM - SERUM 4.3 mmol/L (3.5-5.1)
[2017-02-26 07:16] LABS: CREATININE - SERUM 13.4 mg/dL (0.6-1.3)
[2017-02-26 08:17] LABS: FOLATE (FOLIC ACID) - SERUM 7.2 ng/mL (>3.0)
[2017-02-26 08:54] VITALS: BP 142/68
[2017-02-26 12:28] VITALS: BP 145/72
[2017-02-26 21:00] VITALS: BP 129/63
[2017-02-27] VITALS (14 sets, daily range): BP systolic 120–156; BP diastolic 58–86; Ht 167.6 cm; Wt 60.1 kg
[2017-02-27 06:49] LABS: LYMPHOCYTES 26.5 % (15-50); MCH 32.2 pg (26.0-34.0); MCHC 31.4 g/dL (31.0-37.0); MCV 102.3 fL (80.0-100.0); NEUTROPHILS 54.7 % (40-80); PLATELET COUNT 203 10x3/uL (130-400); RDW 18.5 % (11.5-14.5); WBC 6.2 10x3/uL (4.8-10.8)
[2017-02-27 07:08] LABS: ANION GAP 19.7 mmol/L (8-16); CALCIUM 7.7 mg/dL (8.5-10.1); CARBON DIOXIDE 24.4 mmol/L (21.0-32.0); CREATININE - SERUM 10.7 mg/dL (0.6-1.3); PHOSPHOROUS 4.6 mg/dL (2.5-4.9); POTASSIUM - SERUM 4.1 mmol/L (3.5-5.1)
[2017-02-27 07:22] LABS: HEMOGLOBIN 5.5 g/dL (13.5-17.5); RBC 1.71 10x6/uL (4.20-6.10)
[2017-02-27 07:23] LABS: HEMATOCRIT 17.5 % (42.0-54.0)
[2017-02-27 11:12] LABS: HEMATOCRIT 16.7 % (42.0-54.0); HEMOGLOBIN 5.4 g/dL (13.5-17.5)
[2017-02-27 17:19] LABS: HEMATOCRIT 17.6 % (42.0-54.0); HEMOGLOBIN 5.7 g/dL (13.5-17.5)
[2017-02-27 22:47] LABS: HEMATOCRIT 16.2 % (42.0-54.0); HEMOGLOBIN 5.2 g/dL (13.5-17.5)
[2017-02-28] VITALS (24 sets, daily range): BP systolic 108–169; BP diastolic 64–89
[2017-02-28 04:04] LABS: HEMATOCRIT 16.5 % (42.0-54.0); HEMOGLOBIN 5.3 g/dL (13.5-17.5)
[2017-02-28 04:22] LABS: T4 THYROXIN - FREE 0.66 ng/dL (0.76-1.46); THYROID STIMULATING HORMONE 7.27 uIU/mL (0.36-3.74)
[2017-02-28 08:13] LABS: INR 1.11 (0.85-1.17); PROTIME 13.9 SECONDS (11.6-15.0)
[2017-02-28 08:20] LABS: FOLATE (FOLIC ACID) - SERUM 10.8 ng/mL (>3.0)
[2017-02-28 10:39] LABS: HEMOGLOBIN 5.2 g/dL (13.5-17.5)
[2017-02-28 10:40] LABS: HEMATOCRIT 16.3 % (42.0-54.0)
[2017-02-28 16:04] LABS: HEMATOCRIT 17.1 % (42.0-54.0); HEMOGLOBIN 5.4 g/dL (13.5-17.5)
[2017-03-01] VITALS (12 sets, daily range): BP systolic 124–176; BP diastolic 66–86
[2017-03-01 04:07] LABS: BASOPHILS 0.1 % (0-2); EOSINOPHILS 5.9 % (0-7); IMMATURE GRANULOCYTES 0.8 % (0-5); LYMPHOCYTES 16.2 % (15-50); MCH 32.7 pg (26.0-34.0); MCHC 31.6 g/dL (31.0-37.0); MCV 103.3 fL (80.0-100.0); MEAN PLATELET VOLUME 10.2 fL (7.4-10.4); MONOCYTES 14.7 % (2-11); NEUTROPHILS 62.3 % (40-80); PLATELET COUNT 225 10x3/uL (130-400); WBC 7.4 10x3/uL (4.8-10.8)
[2017-03-01 04:11] LABS: ANION GAP 17.8 mmol/L (8-16); CALCIUM 8.3 mg/dL (8.5-10.1); CARBON DIOXIDE 25.8 mmol/L (21.0-32.0); CREATININE - SERUM 8.3 mg/dL (0.6-1.3); POTASSIUM - SERUM 3.6 mmol/L (3.5-5.1)
[2017-03-01 04:14] LABS: INR 1.18 (0.85-1.17); PROTIME 14.5 SECONDS (11.6-15.0)
[2017-03-01 04:15] LABS: APTT 39.2 SECONDS (22.8-39.4)
[2017-03-01 04:29] LABS: HEMATOCRIT 15.8 % (42.0-54.0); RBC 1.53 10x6/uL (4.20-6.10)
[2017-03-02 01:16] VITALS: BP 132/67
[2017-03-02 05:14] VITALS: BP 140/66
[2017-03-02 06:10] LABS: BASOPHILS 0.1 % (0-2); EOSINOPHILS 5.9 % (0-7); IMMATURE GRANULOCYTES 0.3 % (0-5); LYMPHOCYTES 16.5 % (15-50); MCH 33.3 pg (26.0-34.0); MCHC 32.3 g/dL (31.0-37.0); MCV 103.1 fL (80.0-100.0); MEAN PLATELET VOLUME 10.2 fL (7.4-10.4); NEUTROPHILS 65.2 % (40-80); PLATELET COUNT 224 10x3/uL (130-400); RDW 18.7 % (11.5-14.5); WBC 7.5 10x3/uL (4.8-10.8)
[2017-03-02 06:24] LABS: HEMOGLOBIN 5.3 g/dL (13.5-17.5); RBC 1.59 10x6/uL (4.20-6.10)
[2017-03-02 06:25] LABS: HEMATOCRIT 16.4 % (42.0-54.0)
[2017-03-02 06:36] LABS: ANION GAP 21.8 mmol/L (8-16); CALCIUM 8.2 mg/dL (8.5-10.1); CARBON DIOXIDE 23.4 mmol/L (21.0-32.0)
[2017-03-02 06:38] LABS: CREATININE - SERUM 11.8 mg/dL (0.6-1.3)
[2017-03-02 06:39] LABS: POTASSIUM - SERUM 4.2 mmol/L (3.5-5.1)
[2017-03-02 08:00] VITALS: BP 129/67
[2017-03-02 11:22] VITALS: BP 131/68
[2017-03-02 16:06] VITALS: BP 140/68
[2017-03-02 20:00] VITALS: BP 135/69
[2017-03-03] VITALS: BP 137/77
[2017-03-03 04:00] VITALS: BP 123/66
[2017-03-03 07:00] VITALS: BP 148/75
[2017-03-03 16:32] VITALS: BP 155/72
[2017-03-03 21:30] VITALS: BP 137/71
[2017-03-04 06:11] VITALS: BP 123/72
[2017-03-04 08:36] VITALS: BP 105/72
[2017-03-04 11:50] VITALS: BP 102/64
[2017-03-04 15:12] VITALS: BP 124/72
[2017-03-04 20:00] VITALS: BP 114/62
[2017-03-05] VITALS: BP 128/72
[2017-03-05 04:00] VITALS: BP 126/69
[2017-03-05 06:24] LABS: BASOPHILS 0.2 % (0-2); EOSINOPHILS 3.4 % (0-7); IMMATURE GRANULOCYTES 0.4 % (0-5); LYMPHOCYTES 10.4 % (15-50); MCH 31.9 pg (26.0-34.0); MCHC 29.5 g/dL (31.0-37.0); MCV 108.1 fL (80.0-100.0); MEAN PLATELET VOLUME 10.7 fL (7.4-10.4); MONOCYTES 15.1 % (2-11); NEUTROPHILS 70.5 % (40-80); PLATELET COUNT 252 10x3/uL (130-400); RDW 18.9 % (11.5-14.5); WBC 10.7 10x3/uL (4.8-10.8)
[2017-03-05 06:29] LABS: HEMATOCRIT 17.3 % (42.0-54.0); HEMOGLOBIN 5.1 g/dL (13.5-17.5)
[2017-03-05 06:41] LABS: ANION GAP 20.8 mmol/L (8-16); CALCIUM 7.5 mg/dL (8.5-10.1); CARBON DIOXIDE 24.5 mmol/L (21.0-32.0); CREATININE - SERUM 12.9 mg/dL (0.6-1.3); PHOSPHOROUS 6.5 mg/dL (2.5-4.9); POTASSIUM - SERUM 4.3 mmol/L (3.5-5.1)
[2017-03-05 08:41] VITALS: BP 149/81
[2017-03-05 12:30] VITALS: BP 141/75
[2017-03-05 17:27] VITALS: BP 133/61
[2017-03-05 19:00] VITALS: BP 135/67
[2017-03-06] VITALS: BP 132/65
[2017-03-06 04:00] VITALS: BP 136/71
[2017-03-06 04:54] LABS: BASOPHILS 0.3 % (0-2); IMMATURE GRANULOCYTES 0.3 % (0-5); LYMPHOCYTES 12.1 % (15-50); MCH 32.8 pg (26.0-34.0); MCV 109.2 fL (80.0-100.0); MEAN PLATELET VOLUME 10.7 fL (7.4-10.4); NEUTROPHILS 68.3 % (40-80); PLATELET COUNT 263 10x3/uL (130-400); RDW 18.6 % (11.5-14.5); WBC 10.6 10x3/uL (4.8-10.8)
[2017-03-06 05:19] LABS: ANION GAP 15.5 mmol/L (8-16); CALCIUM 7.9 mg/dL (8.5-10.1); CARBON DIOXIDE 28.6 mmol/L (21.0-32.0); PHOSPHOROUS 4.9 mg/dL (2.5-4.9); POTASSIUM - SERUM 4.1 mmol/L (3.5-5.1)
[2017-03-06 05:22] LABS: HEMOGLOBIN 5.7 g/dL (13.5-17.5); RBC 1.74 10x6/uL (4.20-6.10)
[2017-03-06 08:34] VITALS: BP 129/62
[2017-03-06 12:09] VITALS: BP 124/69
[2017-03-06 16:54] VITALS: BP 119/57
[2017-03-06 20:00] VITALS: BP 133/66
[2017-03-07] VITALS: BP 130/66
[2017-03-07 04:00] VITALS: BP 133/67
[2017-03-07 05:35] LABS: BASOPHILS 0.2 % (0-2); EOSINOPHILS 3.8 % (0-7); IMMATURE GRANULOCYTES 0.3 % (0-5); MCH 32.4 pg (26.0-34.0); MCHC 30.1 g/dL (31.0-37.0); MCV 107.6 fL (80.0-100.0); MEAN PLATELET VOLUME 10.8 fL (7.4-10.4); MONOCYTES 15.3 % (2-11); NEUTROPHILS 67.4 % (40-80); PLATELET COUNT 265 10x3/uL (130-400); RDW 17.7 % (11.5-14.5); WBC 10.6 10x3/uL (4.8-10.8)
[2017-03-07 06:15] LABS: HEMATOCRIT 18.3 % (42.0-54.0); HEMOGLOBIN 5.5 g/dL (13.5-17.5)
[2017-03-07 06:20] LABS: ANION GAP 18.9 mmol/L (8-16); CALCIUM 8.2 mg/dL (8.5-10.1); CARBON DIOXIDE 26.5 mmol/L (21.0-32.0); PHOSPHOROUS 5.5 mg/dL (2.5-4.9); POTASSIUM - SERUM 4.4 mmol/L (3.5-5.1)
[2017-03-07 06:29] LABS: CREATININE - SERUM 12.1 mg/dL (0.6-1.3)
[2017-03-07 07:42] VITALS: BP 117/60
[2017-03-07 12:41] VITALS: BP 126/69
[2017-03-07 19:00] VITALS: BP 130/65
[2017-03-08 04:00] VITALS: BP 129/63
[2017-03-08 06:32] LABS: ANION GAP 15.6 mmol/L (8-16); CALCIUM 8.2 mg/dL (8.5-10.1); CARBON DIOXIDE 28.4 mmol/L (21.0-32.0)
[2017-03-08 06:38] LABS: CREATININE - SERUM 8.3 mg/dL (0.6-1.3); PHOSPHOROUS 3.5 mg/dL (2.5-4.9)
[2017-03-08 06:51] LABS: BASOPHILS 0.2 % (0-2); IMMATURE GRANULOCYTES 0.2 % (0-5); LYMPHOCYTES 14.3 % (15-50); MCHC 30.5 g/dL (31.0-37.0); MEAN PLATELET VOLUME 10.6 fL (7.4-10.4); MONOCYTES 15.2 % (2-11); NEUTROPHILS 66.1 % (40-80); PLATELET COUNT 262 10x3/uL (130-400); RDW 17.4 % (11.5-14.5)
[2017-03-08 06:54] LABS: RBC 1.76 10x6/uL (4.20-6.10)
[2017-03-08 06:55] LABS: HEMOGLOBIN 5.8 g/dL (13.5-17.5)
[2017-03-08 08:26] VITALS: BP 125/64
[2017-03-08 11:40] VITALS: BP 131/63
[2017-03-08 16:11] VITALS: BP 126/62
[2017-03-08 20:25] VITALS: BP 115/57
[2017-03-09 01:13] VITALS: BP 116/62
[2017-03-09 04:32] VITALS: BP 124/63
[2017-03-09 07:58] LABS: BASOPHILS 0.3 % (0-2); EOSINOPHILS 3.7 % (0-7); IMMATURE GRANULOCYTES 0.1 % (0-5); LYMPHOCYTES 8.6 % (15-50); MCHC 29.9 g/dL (31.0-37.0); MCV 106.9 fL (80.0-100.0); MEAN PLATELET VOLUME 10.1 fL (7.4-10.4); MONOCYTES 16.6 % (2-11); NEUTROPHILS 70.7 % (40-80); PLATELET COUNT 248 10x3/uL (130-400); RDW 17.2 % (11.5-14.5); WBC 7.8 10x3/uL (4.8-10.8)
[2017-03-09 07:59] LABS: HEMOGLOBIN 5.6 g/dL (13.5-17.5); RBC 1.75 10x6/uL (4.20-6.10)
[2017-03-09 08:00] LABS: HEMATOCRIT 18.7 % (42.0-54.0)
[2017-03-09 08:06] LABS: ANION GAP 18.7 mmol/L (8-16); CALCIUM 8.6 mg/dL (8.5-10.1); CARBON DIOXIDE 24.7 mmol/L (21.0-32.0); CREATININE - SERUM 11.5 mg/dL (0.6-1.3); POTASSIUM - SERUM 4.4 mmol/L (3.5-5.1)
[2017-03-09 08:32] VITALS: BP 129/61
[2017-03-09 11:24] VITALS: BP 126/60
[2017-03-09 15:46] VITALS: BP 148/76
[2017-03-09 20:00] VITALS: BP 133/62
[2017-03-10] VITALS: BP 126/63
[2017-03-10 04:00] VITALS: BP 141/57
[2017-03-10 06:44] LABS: ANION GAP 20.9 mmol/L (8-16); CALCIUM 8.5 mg/dL (8.5-10.1); CARBON DIOXIDE 23.5 mmol/L (21.0-32.0)
[2017-03-10 06:49] LABS: BASOPHILS 0.3 % (0-2); EOSINOPHILS 2.4 % (0-7); IMMATURE GRANULOCYTES 0.1 % (0-5); LYMPHOCYTES 12.2 % (15-50); MCH 31.6 pg (26.0-34.0); MCHC 29.7 g/dL (31.0-37.0); MCV 106.4 fL (80.0-100.0); MEAN PLATELET VOLUME 10.7 fL (7.4-10.4); PLATELET COUNT 239 10x3/uL (130-400); POTASSIUM - SERUM 5.4 mmol/L (3.5-5.1); RDW 17.1 % (11.5-14.5); WBC 7.5 10x3/uL (4.8-10.8)
[2017-03-10 06:52] LABS: HEMATOCRIT 18.2 % (42.0-54.0); HEMOGLOBIN 5.4 g/dL (13.5-17.5); RBC 1.71 10x6/uL (4.20-6.10)
[2017-03-10 07:45] VITALS: BP 125/67
[2017-03-10 09:11] LABS: INR 1.24 (0.85-1.17)
[2017-03-10 16:17] VITALS: BP 136/72
[2017-03-10 19:00] VITALS: BP 134/64
[2017-03-11 04:00] VITALS: BP 147/75
[2017-03-11 06:11] LABS: HEMATOCRIT 20.3 % (42.0-54.0); MCH 31.6 pg (26.0-34.0); MCHC 29.1 g/dL (31.0-37.0); MEAN PLATELET VOLUME 10.8 fL (7.4-10.4); PLATELET COUNT 236 10x3/uL (130-400); RDW 17.4 % (11.5-14.5); WBC 6.3 10x3/uL (4.8-10.8)
[2017-03-11 06:22] LABS: ANION GAP 15.5 mmol/L (8-16); CALCIUM 8.5 mg/dL (8.5-10.1); CARBON DIOXIDE 28.9 mmol/L (21.0-32.0); PHOSPHOROUS 3.6 mg/dL (2.5-4.9)
[2017-03-11 06:26] LABS: CREATININE - SERUM 9.3 mg/dL (0.6-1.3); POTASSIUM - SERUM 4.4 mmol/L (3.5-5.1)
[2017-03-11 06:53] LABS: HEMOGLOBIN 5.9 g/dL (13.5-17.5); MCV 108.6 fL (80.0-100.0); RBC 1.87 10x6/uL (4.20-6.10)
[2017-03-11 07:51] LABS: ANISOCYTOSIS OCC; BASOPHILS 1 % (0-2); EOSINOPHILS 6 % (0-7); LYMPHOCYTES 21 % (15-50); MONOCYTES 19 % (2-11); NEUTROPHILS 52 % (40-80); PLATELET ESTIMATE NORMAL; ROULEAUX OCC
[2017-03-11 08:46] VITALS: BP 138/67
[2017-03-11 11:23] VITALS: BP 144/70
[2017-03-11 15:39] VITALS: BP 130/66
[2017-03-11 20:00] VITALS: BP 134/62
[2017-03-12] VITALS: BP 134/68
[2017-03-12 04:00] VITALS: BP 142/66
[2017-03-12 05:40] LABS: CALCIUM 8.4 mg/dL (8.5-10.1); CARBON DIOXIDE 31.5 mmol/L (21.0-32.0); POTASSIUM - SERUM 4.5 mmol/L (3.5-5.1)
[2017-03-12 05:42] LABS: CREATININE - SERUM 12.1 mg/dL (0.6-1.3)
[2017-03-12 08:31] VITALS: BP 138/67
[2017-03-12 11:04] VITALS: BP 133/66
[2017-03-12 11:38] LABS: BASOPHILS 0.4 % (0-2); EOSINOPHILS 5.6 % (0-7); IMMATURE GRANULOCYTES 0.3 % (0-5); LYMPHOCYTES 18.9 % (15-50); MCH 31.4 pg (26.0-34.0); MCHC 28.8 g/dL (31.0-37.0); MCV 109.1 fL (80.0-100.0); MEAN PLATELET VOLUME 10.9 fL (7.4-10.4); MONOCYTES 15.4 % (2-11); NEUTROPHILS 59.4 % (40-80); PLATELET COUNT 238 10x3/uL (130-400); RDW 17.5 % (11.5-14.5); WBC 6.8 10x3/uL (4.8-10.8)
[2017-03-12 12:02] LABS: RBC 1.75 10x6/uL (4.20-6.10)
[2017-03-12 12:03] LABS: HEMATOCRIT 19.1 % (42.0-54.0); HEMOGLOBIN 5.5 g/dL (13.5-17.5)
[2017-03-12] MEDS ORDERED: CARAFATE1 G/10 ML PO (12:13)
[2017-03-12 19:00] VITALS: BP 130/59
[2017-03-13 04:00] VITALS: BP 137/60
[2017-03-13 04:49] LABS: BASOPHILS 0.3 % (0-2); EOSINOPHILS 6.9 % (0-7); HEMATOCRIT 21.2 % (42.0-54.0); IMMATURE GRANULOCYTES 0.2 % (0-5); LYMPHOCYTES 20.7 % (15-50); MCH 31.1 pg (26.0-34.0); MCHC 28.8 g/dL (31.0-37.0); MCV 108.2 fL (80.0-100.0); MEAN PLATELET VOLUME 10.5 fL (7.4-10.4); MONOCYTES 10.4 % (2-11); NEUTROPHILS 61.5 % (40-80); PLATELET COUNT 256 10x3/uL (130-400); RDW 17.3 % (11.5-14.5)
[2017-03-13 05:00] LABS: HEMOGLOBIN 6.1 g/dL (13.5-17.5); RBC 1.96 10x6/uL (4.20-6.10)
[2017-03-13 05:14] LABS: ANION GAP 12.3 mmol/L (8-16); CALCIUM 8.1 mg/dL (8.5-10.1); CARBON DIOXIDE 32.8 mmol/L (21.0-32.0); POTASSIUM - SERUM 4.1 mmol/L (3.5-5.1)
[2017-03-13 05:16] LABS: PHOSPHOROUS 2.8 mg/dL (2.5-4.9)
[2017-03-13 08:18] VITALS: BP 127/68
[2017-03-13 11:11] VITALS: BP 130/72
[2017-03-13 21:54] VITALS: BP 145/67
[2017-03-14 01:14] VITALS: BP 147/76
[2017-03-14 05:06] LABS: BASOPHILS 0.3 % (0-2); EOSINOPHILS 5.4 % (0-7); IMMATURE GRANULOCYTES 0.1 % (0-5); LYMPHOCYTES 22.6 % (15-50); MCH 31.2 pg (26.0-34.0); MCHC 29.1 g/dL (31.0-37.0); MEAN PLATELET VOLUME 10.4 fL (7.4-10.4); MONOCYTES 8.2 % (2-11); NEUTROPHILS 63.4 % (40-80); PLATELET COUNT 249 10x3/uL (130-400); RDW 17.1 % (11.5-14.5); WBC 6.8 10x3/uL (4.8-10.8)
[2017-03-14 05:09] LABS: HEMATOCRIT 19.9 % (42.0-54.0); HEMOGLOBIN 5.8 g/dL (13.5-17.5); RBC 1.86 10x6/uL (4.20-6.10)
[2017-03-14 05:21] LABS: CALCIUM 8.4 mg/dL (8.5-10.1); CARBON DIOXIDE 29.3 mmol/L (21.0-32.0); POTASSIUM - SERUM 4.3 mmol/L (3.5-5.1)
[2017-03-14 05:24] LABS: CREATININE - SERUM 11.4 mg/dL (0.6-1.3)
[2017-03-14 06:08] VITALS: BP 111/66
[2017-03-14 09:18] VITALS: BP 146/72
[2017-03-14 18:10] VITALS: BP 136/74
[2017-03-14 19:00] VITALS: BP 157/76
[2017-03-15 04:24] LABS: BASOPHILS 0.5 % (0-2); HEMATOCRIT 22.4 % (42.0-54.0); IMMATURE GRANULOCYTES 1.1 % (0-5); LYMPHOCYTES 20.7 % (15-50); MCH 31.1 pg (26.0-34.0); MCV 107.2 fL (80.0-100.0); MEAN PLATELET VOLUME 10.4 fL (7.4-10.4); MONOCYTES 10.2 % (2-11); NEUTROPHILS 62.5 % (40-80); PLATELET COUNT 293 10x3/uL (130-400); RBC 2.09 10x6/uL (4.20-6.10); RDW 17.4 % (11.5-14.5); WBC 6.6 10x3/uL (4.8-10.8)
[2017-03-15 04:25] LABS: HEMOGLOBIN 6.5 g/dL (13.5-17.5)
[2017-03-15 04:35] LABS: CALCIUM 8.6 mg/dL (8.5-10.1); CARBON DIOXIDE 30.2 mmol/L (21.0-32.0); PHOSPHOROUS 2.3 mg/dL (2.5-4.9); POTASSIUM - SERUM 4.2 mmol/L (3.5-5.1)
[2017-03-15 04:39] LABS: CREATININE - SERUM 8.1 mg/dL (0.6-1.3)
[2017-03-15 04:40] VITALS: BP 156/76
[2017-03-15 09:02] VITALS: BP 132/68
[2017-03-15 11:13] VITALS: BP 128/64
[2017-03-15 17:07] VITALS: BP 122/68
[2017-03-15 19:00] VITALS: BP 139/68
[2017-03-16] VITALS: BP 154/73
[2017-03-16 04:00] VITALS: BP 155/74
[2017-03-16 08:21] VITALS: BP 159/75
[2017-03-16 11:54] LABS: BASOPHILS 0.4 % (0-2); EOSINOPHILS 4.5 % (0-7); HEMATOCRIT 22.4 % (42.0-54.0); IMMATURE GRANULOCYTES 0.7 % (0-5); LYMPHOCYTES 19.1 % (15-50); MCH 31.7 pg (26.0-34.0); MCHC 29.5 g/dL (31.0-37.0); MCV 107.7 fL (80.0-100.0); MEAN PLATELET VOLUME 9.8 fL (7.4-10.4); MONOCYTES 8.9 % (2-11); NEUTROPHILS 66.4 % (40-80); PLATELET COUNT 285 10x3/uL (130-400); RBC 2.08 10x6/uL (4.20-6.10); RDW 17.7 % (11.5-14.5); WBC 7.1 10x3/uL (4.8-10.8)
[2017-03-16 12:06] VITALS: BP 145/71
[2017-03-16 12:08] LABS: HEMOGLOBIN 6.6 g/dL (13.5-17.5)
[2017-03-16 12:12] LABS: ALBUMIN 2.9 g/dL (3.4-5.0); ANION GAP 15.2 mmol/L (8-16); BILIRUBIN - TOTAL 1.14 mg/dL (0.2-1.3); CALCIUM 8.8 mg/dL (8.5-10.1); CARBON DIOXIDE 29.3 mmol/L (21.0-32.0); CREATININE - SERUM 12.6 mg/dL (0.6-1.3); POTASSIUM - SERUM 4.5 mmol/L (3.5-5.1); PROTEIN - SERUM 7.8 g/dL (6.4-8.2)
[2017-03-16 16:12] VITALS: BP 138/67
[2017-03-16 21:26] VITALS: BP 156/73
[2017-03-17 01:03] VITALS: BP 161/75
[2017-03-17 04:54] VITALS: BP 169/78
[2017-03-17 08:01] VITALS: BP 167/81
[2017-03-17 15:41] VITALS: BP 125/59
[2017-03-17 21:12] VITALS: BP 136/63
[2017-03-18 05:39] VITALS: BP 131/62
[2017-03-18 06:28] LABS: BASOPHILS 0.3 % (0-2); EOSINOPHILS 3.9 % (0-7); HEMATOCRIT 21.7 % (42.0-54.0); IMMATURE GRANULOCYTES 0.4 % (0-5); LYMPHOCYTES 21.5 % (15-50); MCH 31.7 pg (26.0-34.0); MEAN PLATELET VOLUME 10.4 fL (7.4-10.4); MONOCYTES 12.3 % (2-11); NEUTROPHILS 61.6 % (40-80); PLATELET COUNT 303 10x3/uL (130-400); WBC 7.2 10x3/uL (4.8-10.8)
[2017-03-18 06:34] LABS: HEMOGLOBIN 6.3 g/dL (13.5-17.5); RBC 1.99 10x6/uL (4.20-6.10)
[2017-03-18 06:43] LABS: ANION GAP 14.9 mmol/L (8-16); CARBON DIOXIDE 32.4 mmol/L (21.0-32.0); PHOSPHOROUS 3.1 mg/dL (2.5-4.9); POTASSIUM - SERUM 4.3 mmol/L (3.5-5.1)
[2017-03-18 08:02] VITALS: BP 147/69
[2017-03-18 11:29] VITALS: BP 141/66
== END 2017-03-18 14:51 | disposition home health service (06) | DRG 377 ==
LOC: D.ER 21:44 → D.M2 23:53 → D.ICU 23:53 → D.M2 03-01 16:05
PROVIDERS: Family Medicine; Internal Medicine; Internal Medicine Gastroenterology; Internal Medicine Nephrology
PROC: 5A1D70Z Performance of Urinary Filtration, Intermittent, Less than 6 Hours Per Day (ICD-10-PCS; principal; 2017-02-24)
PROC: 0DB98ZX Excision of Duodenum, Via Natural or Artificial Opening Endoscopic, Diagnostic (ICD-10-PCS; 2017-03-01)
PROC: 0DB78ZX Excision of Stomach, Pylorus, Via Natural or Artificial Opening Endoscopic, Diagnostic (ICD-10-PCS; 2017-03-01)
PROC: 0W3P8ZZ Control Bleeding in Gastrointestinal Tract, Via Natural or Artificial Opening Endoscopic (ICD-10-PCS; 2017-03-01)
PROC: 0DBN8ZZ Excision of Sigmoid Colon, Via Natural or Artificial Opening Endoscopic (ICD-10-PCS; 2017-03-01)
DX: K92.2 Gastrointestinal hemorrhage, unspecified (principal); J18.9 Pneumonia, unspecified organism; N18.6 End stage renal disease; I13.2 Hypertensive heart and chronic kidney disease with heart failure and with stage 5 chronic kidney disease, or end stage renal disease; K31.7 Polyp of stomach and duodenum; I50.9 Heart failure, unspecified; E87.5 Hyperkalemia; D63.1 Anemia in chronic kidney disease; I48.91 Unspecified atrial fibrillation; Z99.2 Dependence on renal dialysis; E03.9 Hypothyroidism, unspecified; D50.9 Iron deficiency anemia, unspecified; K04.7 Periapical abscess without sinus; B19.20 Unspecified viral hepatitis C without hepatic coma; K44.9 Diaphragmatic hernia without obstruction or gangrene; K63.5 Polyp of colon; K57.90 Diverticulosis of intestine, part unspecified, without perforation or abscess without bleeding; Z87.891 Personal history of nicotine dependence; J20.9 Acute bronchitis, unspecified

== ENCOUNTER → 2017-04-29 12:36 | Outpatient (CLI) | payer MEDICARE ==
[2017-02-27 10:29] VITALS: BMI 23.7
== END | disposition home or self-care (01) ==
LOC: D.NM 12:36
DX: R10.10 Upper abdominal pain, unspecified (principal); K80.00 Calculus of gallbladder with acute cholecystitis without obstruction

== ENCOUNTER 2017-06-15 21:16 | Inpatient (IN) | payer MEDICARE ==
[~2017-06-15] VITALS: Ht 167.6 cm; Wt 59.6 kg
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
--- NOTE | ~2017-06-15 | OP ---
PATIENT NAME: JEANNETTE LYLES MEDICAL RECORD: [id number] :55 LOCATION:[facility] D.2301 ADMISSION DATE:06/16/17 SURGEON: AVIVA NOWAK MD DATE OF OPERATION: 06/20/2017 PREOPERATIVE DIAGNOSIS: Right parietal brain tumor. POSTOPERATIVE DIAGNOSIS: Right parietal brain tumor. PROCEDURE: Right parietal craniotomy with sterotactic navigation for scalp flap and skull flap planning and intraoperative ultrasound guidance for surgical navigation and tumor resection monitoring. SURGEON: Aviva Nowak MD DESCRIPTION AND TECHNIQUE: After induction of general endotracheal anesthesia, the patient was placed in Sandoval head pins and registration took place with fiducial markers and registration LED and AzulStar navigation system. Following this, after sterile prep and drape, a curvilinear scalp incision was carried out of her right parietal boss. Several colby holes were created at the perimeter of the scalp exposing with a [employer] Romie drill using a side cutting colby. The dura was opened in a cruciate manner with #4-0 Nurolon, #11 blade, and Metzenbaum scissors. The tumor was well centered within the craniotomy flap using Alba navigation and also ultrasound guidance. Approximately, 3-mm area of brain parenchyma overlying tumor was chosen for an entry point. The joseph over this area was cauterized with bipolar cautery. Next, the tumor surface was encountered with bipolar cautery and gentle suction, approximately 3 mm deep to the surface. The inner portion of the tumor appeared to be hemorrhagic and so it was removed with suction and CUSA ultrasound aspirator. Next, the perimeter of the tumor was dissected free from the overlying brain with microscopic illumination and bipolar cautery and gentle suction. There appeared to be a gross total resection of the tumor, appeared to be mostly hemorrhagic clot. This was sent to pathology for final diagnosis. Meticulous hemostasis was maintained throughout the wound. The wound was again irrigated with copious amounts of lukewarm saline irrigant solution. The dura was reapproximated with interrupted 3-0 Vicryl suture. The skull flap was replaced with titanium plates and screws. The galea was reapproximated with an interrupted 3-0 Vicryl suture and skin was closed with daylin. A sterile dressing was applied to the wound. The patient was awakened in stable condition and taken to the ICU on the ventilator. All counts were reported as correct. Estimated blood loss was 50 cc. TRANSINT:[id number] Voice Confirmation ID: [id number] DOCUMENT ID: [id number] AVIVA NOWAK MD at 1509 CC: [id number] DICTATION DATE: 07/01/17 1356 DENSITOMETER READER: 07/01/17 1439 DIS IN 07/07/17 [place] [id number] [place] [id number]
[2017-06-15 21:58] LABS: BASOPHILS 0.6 % (0-2); EOSINOPHILS 4.3 % (0-7); HEMATOCRIT 28.1 % (42.0-54.0); HEMOGLOBIN 9.1 g/dL (13.5-17.5); IMMATURE GRANULOCYTES 3.1 % (0-5); LYMPHOCYTES 21.5 % (15-50); MCH 32.4 pg (26.0-34.0); MCHC 32.4 g/dL (31.0-37.0); MEAN PLATELET VOLUME 10.6 fL (7.4-10.4); MONOCYTES 8.1 % (2-11); NEUTROPHILS 62.4 % (40-80); PLATELET COUNT 275 10x3/uL (130-400); RBC 2.81 10x6/uL (4.20-6.10); RDW 21.4 % (11.5-14.5); WBC 12.1 10x3/uL (4.8-10.8)
[2017-06-15 22:06] LABS: ALBUMIN 3.7 g/dL (3.4-5.0); BILIRUBIN - TOTAL 0.37 mg/dL (0.2-1.3); CALCIUM 9.3 mg/dL (8.5-10.1); CREATININE - SERUM 14.2 mg/dL (0.6-1.3); MAGNESIUM - SERUM 2.1 mg/dL (1.8-2.4); PROTEIN - SERUM 8.2 g/dL (6.4-8.2)
[2017-06-15 22:08] LABS: ANION GAP 46.3 mmol/L (8-16)
[2017-06-15 22:11] LABS: CARBON DIOXIDE 8.5 mmol/L (21.0-32.0); POTASSIUM - SERUM 6.8 mmol/L (3.5-5.1)
[2017-06-16] VITALS (35 sets, daily range): BP systolic 107–1125; BP diastolic 63–113; BMI 22.4
[2017-06-16 06:21] LABS: BASOPHILS 0.2 % (0-2); EOSINOPHILS 3.4 % (0-7); HEMATOCRIT 26.3 % (42.0-54.0); HEMOGLOBIN 8.5 g/dL (13.5-17.5); IMMATURE GRANULOCYTES 2.1 % (0-5); LYMPHOCYTES 15.5 % (15-50); MCH 32.2 pg (26.0-34.0); MCHC 32.3 g/dL (31.0-37.0); MCV 99.6 fL (80.0-100.0); MEAN PLATELET VOLUME 10.3 fL (7.4-10.4); MONOCYTES 6.9 % (2-11); NEUTROPHILS 71.9 % (40-80); PLATELET COUNT 249 10x3/uL (130-400); RBC 2.64 10x6/uL (4.20-6.10); RDW 21.9 % (11.5-14.5); WBC 11.2 10x3/uL (4.8-10.8)
[2017-06-16 06:54] LABS: ANION GAP 43.6 mmol/L (8-16); CALCIUM 9.8 mg/dL (8.5-10.1); CREATININE - SERUM 15.1 mg/dL (0.6-1.3); MAGNESIUM - SERUM 2.2 mg/dL (1.8-2.4); POTASSIUM - SERUM 5.8 mmol/L (3.5-5.1)
[2017-06-16 06:57] LABS: CARBON DIOXIDE 12.2 mmol/L (21.0-32.0)
[2017-06-16 15:50] LABS: INR 1.33 (0.85-1.17)
[2017-06-17] VITALS (36 sets, daily range): BP systolic 112–178; BP diastolic 61–100; BMI 22.4
[2017-06-17 05:04] LABS: BASOPHILS 0.5 % (0-2); EOSINOPHILS 4.9 % (0-7); HEMATOCRIT 20.3 % (42.0-54.0); IMMATURE GRANULOCYTES 0.3 % (0-5); LYMPHOCYTES 17.4 % (15-50); MCH 31.9 pg (26.0-34.0); MCV 96.7 fL (80.0-100.0); MONOCYTES 10.6 % (2-11); NEUTROPHILS 66.3 % (40-80); RDW 21.3 % (11.5-14.5)
[2017-06-17 05:22] LABS: CALCIUM 8.3 mg/dL (8.5-10.1); CREATININE - SERUM 11.4 mg/dL (0.6-1.3); WBC 6.3 10x3/uL (4.8-10.8)
[2017-06-17 05:24] LABS: HEMOGLOBIN 6.7 g/dL (13.5-17.5); PLATELET COUNT 176 10x3/uL (130-400)
[2017-06-17 05:37] LABS: ANION GAP 25.6 mmol/L (8-16); CARBON DIOXIDE 22.5 mmol/L (21.0-32.0); POTASSIUM - SERUM 4.1 mmol/L (3.5-5.1)
[2017-06-17 07:40] LABS: % SATURATION 12 % (15-55); IRON 26 ug/dl (35-150); TOTAL IRON BIND CAPACITY 216 ug/dl (260-445); UNSAT IRON BIND CAPACITY 190 ug/dl (150-375)
[2017-06-18] VITALS (25 sets, daily range): BP systolic 128–169; BP diastolic 59–98
[2017-06-18 04:35] LABS: BASOPHILS 0.3 % (0-2); EOSINOPHILS 5.7 % (0-7); IMMATURE GRANULOCYTES 0.3 % (0-5); LYMPHOCYTES 22.4 % (15-50); MCHC 33.2 g/dL (31.0-37.0); MCV 96.6 fL (80.0-100.0); MEAN PLATELET VOLUME 10.4 fL (7.4-10.4); MONOCYTES 10.9 % (2-11); NEUTROPHILS 60.4 % (40-80); PLATELET COUNT 162 10x3/uL (130-400); RBC 2.06 10x6/uL (4.20-6.10); RDW 20.9 % (11.5-14.5); WBC 6.4 10x3/uL (4.8-10.8)
[2017-06-18 04:45] LABS: ANION GAP 29.8 mmol/L (8-16); CALCIUM 8.7 mg/dL (8.5-10.1); CARBON DIOXIDE 18.9 mmol/L (21.0-32.0); CREATININE - SERUM 13.5 mg/dL (0.6-1.3); PHOSPHOROUS 4.5 mg/dL (2.5-4.9); POTASSIUM - SERUM 4.7 mmol/L (3.5-5.1)
[2017-06-18 04:53] LABS: HEMATOCRIT 19.9 % (42.0-54.0); HEMOGLOBIN 6.6 g/dL (13.5-17.5)
[2017-06-18 07:31] LABS: FOLATE (FOLIC ACID) - SERUM 15.9 ng/mL (>3.0)
[2017-06-19] VITALS (24 sets, daily range): BP systolic 125–186; BP diastolic 52–89
[2017-06-19 04:10] LABS: BASOPHILS 0.3 % (0-2); EOSINOPHILS 4.5 % (0-7); IMMATURE GRANULOCYTES 0.2 % (0-5); LYMPHOCYTES 20.6 % (15-50); MCH 32.3 pg (26.0-34.0); MCHC 32.8 g/dL (31.0-37.0); MCV 98.4 fL (80.0-100.0); MONOCYTES 10.7 % (2-11); NEUTROPHILS 63.7 % (40-80); PLATELET COUNT 142 10x3/uL (130-400)
[2017-06-19 04:28] LABS: HEMATOCRIT 18.3 % (42.0-54.0); RBC 1.86 10x6/uL (4.20-6.10)
[2017-06-19 04:31] LABS: ANION GAP 29.4 mmol/L (8-16); CARBON DIOXIDE 18.7 mmol/L (21.0-32.0); CREATININE - SERUM 15.9 mg/dL (0.6-1.3); PHENYTOIN (DILANTIN) 5.5 ug/mL (10.0-20.0); PHOSPHOROUS 4.9 mg/dL (2.5-4.9); POTASSIUM - SERUM 5.1 mmol/L (3.5-5.1)
[2017-06-20] VITALS (21 sets, daily range): BP systolic 137–180; BP diastolic 53–82
[2017-06-20 02:56] LABS: BASOPHILS 0.2 % (0-2); EOSINOPHILS 4.9 % (0-7); HEMATOCRIT 20.8 % (42.0-54.0); IMMATURE GRANULOCYTES 0.2 % (0-5); LYMPHOCYTES 9.6 % (15-50); MCH 32.4 pg (26.0-34.0); MCHC 32.7 g/dL (31.0-37.0); MEAN PLATELET VOLUME 10.5 fL (7.4-10.4); MONOCYTES 14.7 % (2-11); NEUTROPHILS 70.4 % (40-80); PLATELET COUNT 146 10x3/uL (130-400); RDW 19.6 % (11.5-14.5); WBC 5.5 10x3/uL (4.8-10.8)
[2017-06-20 02:58] LABS: HEMOGLOBIN 6.8 g/dL (13.5-17.5)
[2017-06-20 03:09] LABS: CALCIUM 8.6 mg/dL (8.5-10.1); PHOSPHOROUS 3.9 mg/dL (2.5-4.9)
[2017-06-20 03:12] LABS: ANION GAP 17.8 mmol/L (8-16); CARBON DIOXIDE 24.3 mmol/L (21.0-32.0); CREATININE - SERUM 9.8 mg/dL (0.6-1.3); POTASSIUM - SERUM 4.1 mmol/L (3.5-5.1)
[2017-06-20 11:53] LABS: BASOPHILS 0.2 % (0-2); EOSINOPHILS 0.5 % (0-7); HEMATOCRIT 20.9 % (42.0-54.0); IMMATURE GRANULOCYTES 0.2 % (0-5); LYMPHOCYTES 5.7 % (15-50); MCH 32.2 pg (26.0-34.0); MCHC 32.5 g/dL (31.0-37.0); MCV 99.1 fL (80.0-100.0); MEAN PLATELET VOLUME 10.5 fL (7.4-10.4); MONOCYTES 1.4 % (2-11); PLATELET COUNT 145 10x3/uL (130-400); RBC 2.11 10x6/uL (4.20-6.10); RDW 19.3 % (11.5-14.5); WBC 4.2 10x3/uL (4.8-10.8)
[2017-06-20 12:05] LABS: HEMOGLOBIN 6.8 g/dL (13.5-17.5)
[2017-06-20 12:26] LABS: ANION GAP 21.9 mmol/L (8-16); CARBON DIOXIDE 21.4 mmol/L (21.0-32.0); CREATININE - SERUM 10.8 mg/dL (0.6-1.3); POTASSIUM - SERUM 4.3 mmol/L (3.5-5.1)
[2017-06-21] VITALS (39 sets, daily range): BP systolic 118–163; BP diastolic 50–88; Ht 167.6 cm; Wt 59.6 kg
[2017-06-21 06:20] LABS: BASOPHILS 0.1 % (0-2); EOSINOPHILS 0.2 % (0-7); HEMATOCRIT 22.4 % (42.0-54.0); IMMATURE GRANULOCYTES 0.2 % (0-5); LYMPHOCYTES 11.9 % (15-50); MCH 32.2 pg (26.0-34.0); MCHC 32.6 g/dL (31.0-37.0); MCV 98.7 fL (80.0-100.0); MEAN PLATELET VOLUME 11.2 fL (7.4-10.4); MONOCYTES 8.4 % (2-11); NEUTROPHILS 79.2 % (40-80); RBC 2.27 10x6/uL (4.20-6.10); RDW 19.5 % (11.5-14.5)
[2017-06-21 06:25] LABS: HEMOGLOBIN 7.3 g/dL (13.5-17.5); PLATELET COUNT 208 10x3/uL (130-400); WBC 9.1 10x3/uL (4.8-10.8)
[2017-06-21 06:33] LABS: ANION GAP 21.7 mmol/L (8-16); CALCIUM 8.3 mg/dL (8.5-10.1); CARBON DIOXIDE 20.8 mmol/L (21.0-32.0); CREATININE - SERUM 12.4 mg/dL (0.6-1.3); POTASSIUM - SERUM 4.5 mmol/L (3.5-5.1)
[2017-06-22] VITALS (26 sets, daily range): BP systolic 92–172; BP diastolic 48–76
[2017-06-22 05:30] LABS: BASOPHILS 0.2 % (0-2); EOSINOPHILS 1.2 % (0-7); HEMATOCRIT 21.6 % (42.0-54.0); IMMATURE GRANULOCYTES 0.5 % (0-5); MCH 32.2 pg (26.0-34.0); MCHC 31.9 g/dL (31.0-37.0); MEAN PLATELET VOLUME 11.3 fL (7.4-10.4); MONOCYTES 8.7 % (2-11); NEUTROPHILS 80.4 % (40-80); PLATELET COUNT 195 10x3/uL (130-400); RBC 2.14 10x6/uL (4.20-6.10); RDW 19.5 % (11.5-14.5)
[2017-06-22 05:31] LABS: WBC 6.6 10x3/uL (4.8-10.8)
[2017-06-22 05:32] LABS: HEMOGLOBIN 6.9 g/dL (13.5-17.5); MCV 100.9 fL (80.0-100.0)
[2017-06-22 05:52] LABS: CARBON DIOXIDE 24.2 mmol/L (21.0-32.0); POTASSIUM - SERUM 4.2 mmol/L (3.5-5.1)
[2017-06-23] VITALS (24 sets, daily range): BP systolic 147–187; BP diastolic 49–84
[2017-06-23 05:15] LABS: BASOPHILS 0.2 % (0-2); EOSINOPHILS 3.9 % (0-7); HEMATOCRIT 20.6 % (42.0-54.0); IMMATURE GRANULOCYTES 0.2 % (0-5); LYMPHOCYTES 8.7 % (15-50); MCH 32.5 pg (26.0-34.0); MCV 101.5 fL (80.0-100.0); MEAN PLATELET VOLUME 11.3 fL (7.4-10.4); MONOCYTES 6.9 % (2-11); NEUTROPHILS 80.1 % (40-80); PLATELET COUNT 206 10x3/uL (130-400); RBC 2.03 10x6/uL (4.20-6.10); RDW 18.9 % (11.5-14.5)
[2017-06-23 05:21] LABS: WBC 8.4 10x3/uL (4.8-10.8)
[2017-06-23 05:22] LABS: HEMOGLOBIN 6.6 g/dL (13.5-17.5)
[2017-06-23 05:52] LABS: ANION GAP 20.2 mmol/L (8-16); CALCIUM 7.9 mg/dL (8.5-10.1); CARBON DIOXIDE 23.2 mmol/L (21.0-32.0); POTASSIUM - SERUM 4.4 mmol/L (3.5-5.1)
[2017-06-23 05:53] LABS: CREATININE - SERUM 11.6 mg/dL (0.6-1.3)
[2017-06-24] VITALS (24 sets, daily range): BP systolic 140–181; BP diastolic 46–92
[2017-06-24 04:58] LABS: BASOPHILS 0.2 % (0-2); EOSINOPHILS 2.9 % (0-7); IMMATURE GRANULOCYTES 0.3 % (0-5); LYMPHOCYTES 8.1 % (15-50); MCHC 31.5 g/dL (31.0-37.0); MCV 101.5 fL (80.0-100.0); MEAN PLATELET VOLUME 11.1 fL (7.4-10.4); MONOCYTES 8.2 % (2-11); NEUTROPHILS 80.3 % (40-80); PLATELET COUNT 212 10x3/uL (130-400); RDW 17.6 % (11.5-14.5)
[2017-06-24 05:34] LABS: RBC 1.97 10x6/uL (4.20-6.10); WBC 11.4 10x3/uL (4.8-10.8)
[2017-06-24 05:35] LABS: HEMOGLOBIN 6.3 g/dL (13.5-17.5)
[2017-06-24 05:42] LABS: ANION GAP 19.6 mmol/L (8-16); CALCIUM 7.8 mg/dL (8.5-10.1); CARBON DIOXIDE 22.9 mmol/L (21.0-32.0); CREATININE - SERUM 13.4 mg/dL (0.6-1.3); PHOSPHOROUS 4.4 mg/dL (2.5-4.9); POTASSIUM - SERUM 4.5 mmol/L (3.5-5.1); VANCOMYCIN - RANDOM 22.5 ug/mL (10.0-20.0)
[2017-06-24 08:15] LABS: PHENYTOIN (DILANTIN) 6.7 ug/mL (10.0-20.0)
[2017-06-25] VITALS (24 sets, daily range): BP systolic 122–189; BP diastolic 34–92
[2017-06-25 04:22] LABS: BASOPHILS 0.1 % (0-2); EOSINOPHILS 2.8 % (0-7); HEMATOCRIT 21.1 % (42.0-54.0); IMMATURE GRANULOCYTES 0.1 % (0-5); LYMPHOCYTES 5.5 % (15-50); MCHC 31.3 g/dL (31.0-37.0); MCV 102.4 fL (80.0-100.0); MONOCYTES 11.9 % (2-11); NEUTROPHILS 79.6 % (40-80); PLATELET COUNT 248 10x3/uL (130-400); RBC 2.06 10x6/uL (4.20-6.10); RDW 17.2 % (11.5-14.5); WBC 13.4 10x3/uL (4.8-10.8)
[2017-06-25 04:39] LABS: HEMOGLOBIN 6.6 g/dL (13.5-17.5)
[2017-06-25 04:46] LABS: ANION GAP 17.8 mmol/L (8-16); CARBON DIOXIDE 25.1 mmol/L (21.0-32.0); PHOSPHOROUS 4.4 mg/dL (2.5-4.9); POTASSIUM - SERUM 3.9 mmol/L (3.5-5.1); VANCOMYCIN - RANDOM 17.4 ug/mL (10.0-20.0)
[2017-06-25 04:50] LABS: CREATININE - SERUM 9.3 mg/dL (0.6-1.3)
[2017-06-25 13:20] LABS: FUNGUS STAIN Final report (())
[2017-06-25 20:09] LABS: ACID FAST SMEAR Negative (()); AFB SPECIMEN PROCESSING Concentration (())
[2017-06-26] VITALS (24 sets, daily range): BP systolic 114–175; BP diastolic 54–86
[2017-06-26 03:47] LABS: BASOPHILS 0.1 % (0-2); EOSINOPHILS 5.4 % (0-7); IMMATURE GRANULOCYTES 0.3 % (0-5); LYMPHOCYTES 6.8 % (15-50); MCH 31.8 pg (26.0-34.0); MCHC 31.3 g/dL (31.0-37.0); MCV 101.5 fL (80.0-100.0); MEAN PLATELET VOLUME 10.7 fL (7.4-10.4); MONOCYTES 13.4 % (2-11); PLATELET COUNT 257 10x3/uL (130-400); RDW 17.2 % (11.5-14.5); WBC 10.5 10x3/uL (4.8-10.8)
[2017-06-26 03:49] LABS: HEMATOCRIT 19.8 % (42.0-54.0); HEMOGLOBIN 6.2 g/dL (13.5-17.5); RBC 1.95 10x6/uL (4.20-6.10)
[2017-06-26 04:03] LABS: ANION GAP 16.7 mmol/L (8-16); CALCIUM 7.8 mg/dL (8.5-10.1); CARBON DIOXIDE 26.2 mmol/L (21.0-32.0); CREATININE - SERUM 11.3 mg/dL (0.6-1.3); PHOSPHOROUS 3.7 mg/dL (2.5-4.9); POTASSIUM - SERUM 3.9 mmol/L (3.5-5.1); VANCOMYCIN - RANDOM 16.5 ug/mL (10.0-20.0)
[2017-06-27] VITALS (29 sets, daily range): BP systolic 117–184; BP diastolic 42–90
[2017-06-27 03:56] LABS: BASOPHILS 0.1 % (0-2); EOSINOPHILS 4.9 % (0-7); HEMATOCRIT 21.8 % (42.0-54.0); IMMATURE GRANULOCYTES 0.5 % (0-5); LYMPHOCYTES 6.3 % (15-50); MCH 31.3 pg (26.0-34.0); MCHC 30.3 g/dL (31.0-37.0); MCV 103.3 fL (80.0-100.0); MEAN PLATELET VOLUME 10.6 fL (7.4-10.4); MONOCYTES 14.6 % (2-11); NEUTROPHILS 73.6 % (40-80); PLATELET COUNT 284 10x3/uL (130-400); RBC 2.11 10x6/uL (4.20-6.10); WBC 10.3 10x3/uL (4.8-10.8)
[2017-06-27 04:05] LABS: HEMOGLOBIN 6.6 g/dL (13.5-17.5)
[2017-06-27 04:22] LABS: ANION GAP 15.6 mmol/L (8-16); PHOSPHOROUS 2.5 mg/dL (2.5-4.9); POTASSIUM - SERUM 3.6 mmol/L (3.5-5.1); VANCOMYCIN - RANDOM 24.2 ug/mL (10.0-20.0)
[2017-06-28] VITALS (23 sets, daily range): BP systolic 91–169; BP diastolic 60–85
[2017-06-28 04:36] LABS: BASOPHILS 0.1 % (0-2); EOSINOPHILS 7.7 % (0-7); IMMATURE GRANULOCYTES 0.7 % (0-5); LYMPHOCYTES 9.4 % (15-50); MCH 32.1 pg (26.0-34.0); MCHC 31.4 g/dL (31.0-37.0); MCV 102.1 fL (80.0-100.0); MEAN PLATELET VOLUME 11.1 fL (7.4-10.4); MONOCYTES 17.6 % (2-11); NEUTROPHILS 64.5 % (40-80); PLATELET COUNT 325 10x3/uL (130-400); RDW 16.8 % (11.5-14.5)
[2017-06-28 04:37] LABS: WBC 7.4 10x3/uL (4.8-10.8)
[2017-06-28 04:38] LABS: HEMATOCRIT 19.4 % (42.0-54.0); HEMOGLOBIN 6.1 g/dL (13.5-17.5)
[2017-06-28 04:51] LABS: CALCIUM 8.2 mg/dL (8.5-10.1); CARBON DIOXIDE 26.6 mmol/L (21.0-32.0); VANCOMYCIN - RANDOM 19.2 ug/mL (10.0-20.0)
[2017-06-28 04:57] LABS: ANION GAP 14.2 mmol/L (8-16); CREATININE - SERUM 10.1 mg/dL (0.6-1.3); POTASSIUM - SERUM 3.8 mmol/L (3.5-5.1)
[2017-06-29] VITALS (24 sets, daily range): BP systolic 120–156; BP diastolic 63–77
[2017-06-29 04:56] LABS: BASOPHILS 0.2 % (0-2); EOSINOPHILS 4.8 % (0-7); HEMATOCRIT 20.2 % (42.0-54.0); IMMATURE GRANULOCYTES 0.9 % (0-5); LYMPHOCYTES 7.4 % (15-50); MCH 31.7 pg (26.0-34.0); MCHC 31.2 g/dL (31.0-37.0); MCV 101.5 fL (80.0-100.0); MEAN PLATELET VOLUME 10.9 fL (7.4-10.4); MONOCYTES 15.7 % (2-11); PLATELET COUNT 337 10x3/uL (130-400); RDW 16.7 % (11.5-14.5); WBC 8.8 10x3/uL (4.8-10.8)
[2017-06-29 05:01] LABS: HEMOGLOBIN 6.3 g/dL (13.5-17.5); RBC 1.99 10x6/uL (4.20-6.10)
[2017-06-29 05:10] LABS: ALBUMIN 1.9 g/dL (3.4-5.0); BILIRUBIN - TOTAL 0.5 mg/dL (0.2-1.3); CALCIUM 8.3 mg/dL (8.5-10.1); CARBON DIOXIDE 27.5 mmol/L (21.0-32.0); PROTEIN - SERUM 6.7 g/dL (6.4-8.2); VANCOMYCIN - RANDOM 14.7 ug/mL (10.0-20.0)
[2017-06-29 05:14] LABS: ANION GAP 15.1 mmol/L (8-16); CREATININE - SERUM 7.1 mg/dL (0.6-1.3); POTASSIUM - SERUM 4.6 mmol/L (3.5-5.1)
[2017-06-30] VITALS (24 sets, daily range): BP systolic 136–165; BP diastolic 66–86
[2017-06-30 05:14] LABS: BASOPHILS 0.1 % (0-2); EOSINOPHILS 4.7 % (0-7); IMMATURE GRANULOCYTES 1.2 % (0-5); LYMPHOCYTES 14.1 % (15-50); MCH 31.4 pg (26.0-34.0); MCHC 31.1 g/dL (31.0-37.0); MCV 101.1 fL (80.0-100.0); MONOCYTES 7.2 % (2-11); NEUTROPHILS 72.7 % (40-80); PLATELET COUNT 293 10x3/uL (130-400); RDW 16.5 % (11.5-14.5); WBC 9.2 10x3/uL (4.8-10.8)
[2017-06-30 05:20] LABS: HEMOGLOBIN 5.5 g/dL (13.5-17.5); RBC 1.75 10x6/uL (4.20-6.10)
[2017-06-30 05:21] LABS: HEMATOCRIT 17.7 % (42.0-54.0)
[2017-06-30 05:33] LABS: ALBUMIN 1.9 g/dL (3.4-5.0); ANION GAP 14.9 mmol/L (8-16); BILIRUBIN - TOTAL 0.7 mg/dL (0.2-1.3); CALCIUM 8.5 mg/dL (8.5-10.1); CARBON DIOXIDE 27.2 mmol/L (21.0-32.0); POTASSIUM - SERUM 4.1 mmol/L (3.5-5.1); PROTEIN - SERUM 6.3 g/dL (6.4-8.2)
[2017-06-30 05:35] LABS: CREATININE - SERUM 9.1 mg/dL (0.6-1.3)
[2017-06-30 06:58] LABS: INR 1.1 (0.85-1.17); PROTIME 13.8 SECONDS (11.6-15.0)
[2017-06-30 07:13] LABS: DIGOXIN 0.82 ng/mL (0.90-2.00); THYROID STIMULATING HORMONE 6.74 uIU/mL (0.36-3.74); VANCOMYCIN - TROUGH 26.6 ug/mL (10.0-20.0)
[2017-07-01] VITALS (24 sets, daily range): BP systolic 136–168; BP diastolic 71–116
[2017-07-01 04:31] LABS: BASOPHILS 0.4 % (0-2); EOSINOPHILS 3.8 % (0-7); LYMPHOCYTES 8.8 % (15-50); MCH 31.3 pg (26.0-34.0); MCHC 31.3 g/dL (31.0-37.0); MEAN PLATELET VOLUME 9.9 fL (7.4-10.4); MONOCYTES 10.3 % (2-11); NEUTROPHILS 75.7 % (40-80); PLATELET COUNT 269 10x3/uL (130-400); RDW 16.3 % (11.5-14.5)
[2017-07-01 04:34] LABS: ANION GAP 18.2 mmol/L (8-16); CALCIUM 8.3 mg/dL (8.5-10.1); CARBON DIOXIDE 25.8 mmol/L (21.0-32.0); CREATININE - SERUM 10.4 mg/dL (0.6-1.3); PHOSPHOROUS 2.3 mg/dL (2.5-4.9); VANCOMYCIN - RANDOM 24.7 ug/mL (10.0-20.0)
[2017-07-01 04:43] LABS: HEMATOCRIT 17.9 % (42.0-54.0); HEMOGLOBIN 5.6 g/dL (13.5-17.5); RBC 1.79 10x6/uL (4.20-6.10)
[2017-07-02] VITALS (24 sets, daily range): BP systolic 131–177; BP diastolic 70–85
[2017-07-02 04:39] LABS: BASOPHILS 0.2 % (0-2); EOSINOPHILS 2.8 % (0-7); HEMATOCRIT 20.5 % (42.0-54.0); IMMATURE GRANULOCYTES 0.5 % (0-5); LYMPHOCYTES 6.9 % (15-50); MCH 30.4 pg (26.0-34.0); MCHC 30.7 g/dL (31.0-37.0); MEAN PLATELET VOLUME 9.8 fL (7.4-10.4); MONOCYTES 6.1 % (2-11); NEUTROPHILS 83.5 % (40-80); PLATELET COUNT 289 10x3/uL (130-400); RBC 2.07 10x6/uL (4.20-6.10); RDW 16.2 % (11.5-14.5)
[2017-07-02 04:44] LABS: HEMOGLOBIN 6.3 g/dL (13.5-17.5)
[2017-07-02 04:54] LABS: ANION GAP 20.4 mmol/L (8-16); CALCIUM 8.3 mg/dL (8.5-10.1); CARBON DIOXIDE 22.6 mmol/L (21.0-32.0); CREATININE - SERUM 11.9 mg/dL (0.6-1.3); VANCOMYCIN - RANDOM 22.1 ug/mL (10.0-20.0)
[2017-07-03] VITALS (24 sets, daily range): BP systolic 142–170; BP diastolic 68–870
[2017-07-03 04:03] LABS: BASOPHILS 0.2 % (0-2); EOSINOPHILS 2.3 % (0-7); HEMATOCRIT 20.7 % (42.0-54.0); IMMATURE GRANULOCYTES 0.6 % (0-5); LYMPHOCYTES 4.1 % (15-50); MCH 31.3 pg (26.0-34.0); MCHC 31.4 g/dL (31.0-37.0); MCV 99.5 fL (80.0-100.0); MEAN PLATELET VOLUME 9.9 fL (7.4-10.4); MONOCYTES 9.6 % (2-11); NEUTROPHILS 83.2 % (40-80); PLATELET COUNT 305 10x3/uL (130-400); RBC 2.08 10x6/uL (4.20-6.10); RDW 16.4 % (11.5-14.5); WBC 10.3 10x3/uL (4.8-10.8)
[2017-07-03 04:24] LABS: HEMOGLOBIN 6.5 g/dL (13.5-17.5)
[2017-07-03 04:28] LABS: ANION GAP 16.9 mmol/L (8-16); CALCIUM 8.1 mg/dL (8.5-10.1); CARBON DIOXIDE 25.7 mmol/L (21.0-32.0); CREATININE - SERUM 7.1 mg/dL (0.6-1.3); PHOSPHOROUS 3.2 mg/dL (2.5-4.9); POTASSIUM - SERUM 3.6 mmol/L (3.5-5.1)
[2017-07-04] VITALS (24 sets, daily range): BP systolic 129–167; BP diastolic 63–111
[2017-07-04 05:02] LABS: BASOPHILS 0.2 % (0-2); EOSINOPHILS 2.8 % (0-7); IMMATURE GRANULOCYTES 1.6 % (0-5); LYMPHOCYTES 5.6 % (15-50); MCH 29.6 pg (26.0-34.0); MCHC 30.6 g/dL (31.0-37.0); MEAN PLATELET VOLUME 9.9 fL (7.4-10.4); MONOCYTES 13.3 % (2-11); NEUTROPHILS 76.5 % (40-80); PLATELET COUNT 308 10x3/uL (130-400); RDW 16.6 % (11.5-14.5); WBC 12.1 10x3/uL (4.8-10.8)
[2017-07-04 05:07] LABS: HEMATOCRIT 19.3 % (42.0-54.0); HEMOGLOBIN 5.9 g/dL (13.5-17.5); RBC 1.99 10x6/uL (4.20-6.10)
[2017-07-04 05:21] LABS: ANION GAP 18.7 mmol/L (8-16); CALCIUM 8.2 mg/dL (8.5-10.1); CARBON DIOXIDE 24.1 mmol/L (21.0-32.0); POTASSIUM - SERUM 3.8 mmol/L (3.5-5.1); VANCOMYCIN - RANDOM 18.7 ug/mL (10.0-20.0)
[2017-07-04 05:25] LABS: PHOSPHOROUS 3.1 mg/dL (2.5-4.9)
[2017-07-05] VITALS (20 sets, daily range): BP systolic 127–156; BP diastolic 42–92
[2017-07-05 10:37] LABS: BASOPHILS 0.2 % (0-2); EOSINOPHILS 3.1 % (0-7); IMMATURE GRANULOCYTES 0.6 % (0-5); LYMPHOCYTES 10.2 % (15-50); MCH 29.7 pg (26.0-34.0); MCHC 30.5 g/dL (31.0-37.0); MCV 97.3 fL (80.0-100.0); MEAN PLATELET VOLUME 9.1 fL (7.4-10.4); MONOCYTES 5.9 % (2-11); PLATELET COUNT 274 10x3/uL (130-400); WBC 12.6 10x3/uL (4.8-10.8)
[2017-07-05 10:38] LABS: HEMATOCRIT 17.7 % (42.0-54.0); HEMOGLOBIN 5.4 g/dL (13.5-17.5); RBC 1.82 10x6/uL (4.20-6.10)
[2017-07-05 11:00] LABS: ALBUMIN 1.8 g/dL (3.4-5.0); BILIRUBIN - TOTAL 0.72 mg/dL (0.2-1.3); CALCIUM 7.8 mg/dL (8.5-10.1); CARBON DIOXIDE 28.2 mmol/L (21.0-32.0); MAGNESIUM - SERUM 2.2 mg/dL (1.8-2.4); PHOSPHOROUS 2.4 mg/dL (2.5-4.9); PROTEIN - SERUM 5.7 g/dL (6.4-8.2)
[2017-07-05 11:01] LABS: CREATININE - SERUM 6.6 mg/dL (0.6-1.3); POTASSIUM - SERUM 3.2 mmol/L (3.5-5.1)
[2017-07-06] VITALS (24 sets, daily range): BP systolic 118–152; BP diastolic 58–90
[2017-07-06 05:49] LABS: BASOPHILS 0.2 % (0-2); EOSINOPHILS 3.2 % (0-7); IMMATURE GRANULOCYTES 0.5 % (0-5); LYMPHOCYTES 5.8 % (15-50); MCH 29.5 pg (26.0-34.0); MCHC 30.3 g/dL (31.0-37.0); MCV 97.3 fL (80.0-100.0); MEAN PLATELET VOLUME 9.7 fL (7.4-10.4); MONOCYTES 11.6 % (2-11); NEUTROPHILS 78.7 % (40-80); PLATELET COUNT 308 10x3/uL (130-400); RDW 16.7 % (11.5-14.5); WBC 13.9 10x3/uL (4.8-10.8)
[2017-07-06 06:11] LABS: RBC 1.83 10x6/uL (4.20-6.10)
[2017-07-06 06:12] LABS: HEMATOCRIT 17.8 % (42.0-54.0); HEMOGLOBIN 5.4 g/dL (13.5-17.5)
[2017-07-06 06:16] LABS: ALBUMIN 1.9 g/dL (3.4-5.0); ANION GAP 15.9 mmol/L (8-16); BILIRUBIN - TOTAL 0.97 mg/dL (0.2-1.3); CALCIUM 8.3 mg/dL (8.5-10.1); CARBON DIOXIDE 26.5 mmol/L (21.0-32.0); CREATININE - SERUM 8.2 mg/dL (0.6-1.3); POTASSIUM - SERUM 3.4 mmol/L (3.5-5.1); PROTEIN - SERUM 6.3 g/dL (6.4-8.2)
[2017-07-06 06:27] LABS: PHOSPHOROUS 3.1 mg/dL (2.5-4.9)
[2017-07-07] VITALS (15 sets, daily range): BP systolic 122–158; BP diastolic 49–83
[2017-07-07 04:46] LABS: BASOPHILS 0.4 % (0-2); EOSINOPHILS 2.2 % (0-7); IMMATURE GRANULOCYTES 0.3 % (0-5); LYMPHOCYTES 4.1 % (15-50); MCH 29.3 pg (26.0-34.0); MCHC 30.4 g/dL (31.0-37.0); MCV 96.3 fL (80.0-100.0); MEAN PLATELET VOLUME 9.5 fL (7.4-10.4); MONOCYTES 11.6 % (2-11); NEUTROPHILS 81.4 % (40-80); PLATELET COUNT 328 10x3/uL (130-400)
[2017-07-07 04:53] LABS: HEMOGLOBIN 5.6 g/dL (13.5-17.5); RBC 1.91 10x6/uL (4.20-6.10)
[2017-07-07 04:54] LABS: HEMATOCRIT 18.4 % (42.0-54.0)
[2017-07-07 05:07] LABS: ANION GAP 21.3 mmol/L (8-16); BILIRUBIN - TOTAL 1.1 mg/dL (0.2-1.3); CALCIUM 8.6 mg/dL (8.5-10.1); CARBON DIOXIDE 23.5 mmol/L (21.0-32.0); POTASSIUM - SERUM 3.8 mmol/L (3.5-5.1); PROTEIN - SERUM 6.7 g/dL (6.4-8.2)
[2017-07-07 05:08] LABS: CREATININE - SERUM 10.3 mg/dL (0.6-1.3)
[2017-07-07 07:04] LABS: DIGOXIN 1.18 ng/mL (0.90-2.00); THYROID STIMULATING HORMONE 11.97 uIU/mL (0.36-3.74)
[2017-07-22 07:36] LABS: FUNGUS MYCOLOGY CULTURE Final report (())
== END 2017-07-07 16:49 | disposition short-term general hospital (02) | DRG 3 ==
LOC: D.ER 21:16 → D.M2 23:29 → OBSVTIME 23:29 → D.M2 23:29 → D.ICU 06-16 12:19
PROVIDERS: Family Medicine; Internal Medicine; Internal Medicine Nephrology; Internal Medicine Pulmonary Disease; Neurological Surgery
PROC: 03HY32Z Insertion of Monitoring Device into Upper Artery, Percutaneous Approach (ICD-10-PCS; 2017-06-20)
PROC: 00B00ZZ Excision of Brain, Open Approach (ICD-10-PCS; 2017-06-20)
PROC: 5A1955Z Respiratory Ventilation, Greater than 96 Consecutive Hours (ICD-10-PCS; 2017-06-20)
PROC: 0BH17EZ Insertion of Endotracheal Airway into Trachea, Via Natural or Artificial Opening (ICD-10-PCS; 2017-06-20)
PROC: 05HM33Z Insertion of Infusion Device into Right Internal Jugular Vein, Percutaneous Approach (ICD-10-PCS; principal; 2017-06-20 07:30)
PROC: 0DH63UZ Insertion of Feeding Device into Stomach, Percutaneous Approach (ICD-10-PCS; 2017-07-01)
PROC: 0DJ08ZZ Inspection of Upper Intestinal Tract, Via Natural or Artificial Opening Endoscopic (ICD-10-PCS; 2017-07-01)
PROC: 0B113F4 Bypass Trachea to Cutaneous with Tracheostomy Device, Percutaneous Approach (ICD-10-PCS; 2017-07-02)
DX: D49.6 Neoplasm of unspecified behavior of brain (principal); N18.6 End stage renal disease; J95.821 Acute postprocedural respiratory failure; J69.0 Pneumonitis due to inhalation of food and vomit; J15.6 Pneumonia due to other Gram-negative bacteria; T82.848A Pain due to vascular prosthetic devices, implants and grafts, initial encounter; G81.94 Hemiplegia, unspecified affecting left nondominant side; I12.0 Hypertensive chronic kidney disease with stage 5 chronic kidney disease or end stage renal disease; Z99.2 Dependence on renal dialysis; I48.91 Unspecified atrial fibrillation; E87.5 Hyperkalemia; E83.39 Other disorders of phosphorus metabolism; G40.909 Epilepsy, unspecified, not intractable, without status epilepticus; D63.1 Anemia in chronic kidney disease; E03.9 Hypothyroidism, unspecified; K21.9 Gastro-esophageal reflux disease without esophagitis; R13.10 Dysphagia, unspecified; R14.0 Abdominal distension (gaseous)

== ENCOUNTER 2017-06-16 11:36 | Emergency (ER) | payer MEDICARE ==
[2017-06-16 02:01] VITALS: BMI 22.4
[2017-06-16 12:33] LABS: BASOPHILS 0.3 % (0-2); EOSINOPHILS 3.8 % (0-7); HEMATOCRIT 25.4 % (42.0-54.0); HEMOGLOBIN 8.5 g/dL (13.5-17.5); IMMATURE GRANULOCYTES 1.3 % (0-5); LYMPHOCYTES 18.3 % (15-50); MCH 32.9 pg (26.0-34.0); MCHC 33.5 g/dL (31.0-37.0); MCV 98.4 fL (80.0-100.0); MEAN PLATELET VOLUME 10.4 fL (7.4-10.4); MONOCYTES 7.5 % (2-11); NEUTROPHILS 68.8 % (40-80); PLATELET COUNT 241 10x3/uL (130-400); RBC 2.58 10x6/uL (4.20-6.10); RDW 22.1 % (11.5-14.5); WBC 11.5 10x3/uL (4.8-10.8)
[2017-06-16 12:37] LABS: INR 1.38 (0.85-1.17); PROTIME 16.5 SECONDS (11.6-15.0)
[2017-06-16 12:38] LABS: APTT 52.9 SECONDS (22.8-39.4)
[2017-06-16 13:01] LABS: ALBUMIN 3.4 g/dL (3.4-5.0); BILIRUBIN - TOTAL 0.45 mg/dL (0.2-1.3); CALCIUM 9.1 mg/dL (8.5-10.1); CARBON DIOXIDE 11.4 mmol/L (21.0-32.0); PROTEIN - SERUM 7.7 g/dL (6.4-8.2)
[2017-06-16 13:02] LABS: ANION GAP 41.6 mmol/L (8-16)
== END 2017-06-16 13:31 | disposition other institution (70) ==
LOC: D.ER 11:36 → D.EDHOLD 12:22 → D.ER 12:22
PROVIDERS: Family Medicine
DX: I61.9 Nontraumatic intracerebral hemorrhage, unspecified (principal); I12.9 Hypertensive chronic kidney disease with stage 1 through stage 4 chronic kidney disease, or unspecified chronic kidney disease; N18.9 Chronic kidney disease, unspecified; K21.9 Gastro-esophageal reflux disease without esophagitis

== ENCOUNTER 2017-08-05 10:41 | Inpatient (IN) | payer MEDICARE ==
[~2017-08-05] VITALS: Ht 167.6 cm; Wt 48.5 kg
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
[2017-08-05 15:32] VITALS: BP 105/60
[2017-08-05 18:00] VITALS: BP 131/60
[2017-08-06 00:05] VITALS: BP 132/64
[2017-08-06 06:13] VITALS: BP 164/70
[2017-08-06 07:11] LABS: BASOPHILS 1.2 % (0-2); EOSINOPHILS 15.2 % (0-7); HEMATOCRIT 36.6 % (42.0-54.0); HEMOGLOBIN 11.3 g/dL (13.5-17.5); LYMPHOCYTES 33.3 % (15-50); MCH 27.9 pg (26.0-34.0); MCHC 30.9 g/dL (31.0-37.0); MCV 90.4 fL (80.0-100.0); MEAN PLATELET VOLUME 10.5 fL (7.4-10.4); MONOCYTES 8.2 % (2-11); NEUTROPHILS 42.1 % (40-80); RBC 4.05 10x6/uL (4.20-6.10); RDW 16.8 % (11.5-14.5); WBC 3.4 10x3/uL (4.8-10.8)
[2017-08-06 07:15] LABS: PLATELET COUNT 182 10x3/uL (130-400)
[2017-08-06 07:27] LABS: ANION GAP 16.7 mmol/L (8-16); CALCIUM 8.9 mg/dL (8.5-10.1); CARBON DIOXIDE 24.8 mmol/L (21.0-32.0); CREATININE - SERUM 10.8 mg/dL (0.6-1.3); POTASSIUM - SERUM 4.5 mmol/L (3.5-5.1)
[2017-08-06 10:30] VITALS: Ht 167.6 cm; Wt 48.5 kg
[2017-08-06 12:02] VITALS: BP 105/66
[2017-08-06 18:00] VITALS: BP 138/82
[2017-08-07 00:55] VITALS: BP 160/90
[2017-08-07 06:20] LABS: BASOPHILS 0.2 % (0-2); EOSINOPHILS 9.7 % (0-7); HEMATOCRIT 36.8 % (42.0-54.0); HEMOGLOBIN 11.8 g/dL (13.5-17.5); LYMPHOCYTES 24.4 % (15-50); MCH 29.2 pg (26.0-34.0); MCHC 32.1 g/dL (31.0-37.0); MCV 91.1 fL (80.0-100.0); MEAN PLATELET VOLUME 11.3 fL (7.4-10.4); MONOCYTES 10.3 % (2-11); NEUTROPHILS 55.4 % (40-80); PLATELET COUNT 178 10x3/uL (130-400); RBC 4.04 10x6/uL (4.20-6.10)
[2017-08-07 06:24] LABS: WBC 4.6 10x3/uL (4.8-10.8)
[2017-08-07 06:45] VITALS: BP 147/77
[2017-08-07 07:00] LABS: ALBUMIN 2.7 g/dL (3.4-5.0); ANION GAP 15.7 mmol/L (8-16); BILIRUBIN - TOTAL 0.8 mg/dL (0.2-1.3); CALCIUM 8.7 mg/dL (8.5-10.1); CARBON DIOXIDE 27.2 mmol/L (21.0-32.0); CHOL - HDL RATIO 2.7 ratio (2.3-4.9); DIGOXIN 1.21 ng/mL (0.90-2.00); LDL-HDL RATIO 1.4 ratio (1.5-3.5); PHOSPHOROUS 3.5 mg/dL (2.5-4.9); POTASSIUM - SERUM 3.9 mmol/L (3.5-5.1); PROTEIN - SERUM 7.7 g/dL (6.4-8.2); THYROID STIMULATING HORMONE 8.74 uIU/mL (0.36-3.74)
[2017-08-07 07:01] LABS: CREATININE - SERUM 7.8 mg/dL (0.6-1.3)
[2017-08-07 12:00] VITALS: BP 124/59
[2017-08-07 18:00] VITALS: BP 144/60
[2017-08-08 00:10] VITALS: BP 153/70
[2017-08-08 05:12] VITALS: BP 144/60
[2017-08-08 06:21] LABS: BASOPHILS 0.5 % (0-2); EOSINOPHILS 13.6 % (0-7); HEMATOCRIT 37.6 % (42.0-54.0); HEMOGLOBIN 11.5 g/dL (13.5-17.5); IMMATURE GRANULOCYTES 0.2 % (0-5); MCH 28.1 pg (26.0-34.0); MCHC 30.6 g/dL (31.0-37.0); MCV 91.9 fL (80.0-100.0); MEAN PLATELET VOLUME 11.1 fL (7.4-10.4); NEUTROPHILS 50.7 % (40-80); PLATELET COUNT 169 10x3/uL (130-400); RBC 4.09 10x6/uL (4.20-6.10); RDW 16.8 % (11.5-14.5); WBC 4.3 10x3/uL (4.8-10.8)
[2017-08-08 06:23] LABS: CALCIUM 9.1 mg/dL (8.5-10.1); CARBON DIOXIDE 21.6 mmol/L (21.0-32.0); CREATININE - SERUM 9.6 mg/dL (0.6-1.3); POTASSIUM - SERUM 4.6 mmol/L (3.5-5.1)
[2017-08-08 12:00] VITALS: BP 149/66
[2017-08-08 18:00] VITALS: BP 148/62
[2017-08-09 12:29] VITALS: BP 128/55
[2017-08-09 18:41] VITALS: BP 148/62
[2017-08-10 06:05] VITALS: BP 139/75
[2017-08-10 07:11] LABS: BASOPHILS 1.1 % (0-2); EOSINOPHILS 12.1 % (0-7); HEMATOCRIT 38.4 % (42.0-54.0); HEMOGLOBIN 11.7 g/dL (13.5-17.5); LYMPHOCYTES 30.4 % (15-50); MCH 27.9 pg (26.0-34.0); MCHC 30.5 g/dL (31.0-37.0); MCV 91.6 fL (80.0-100.0); MEAN PLATELET VOLUME 10.4 fL (7.4-10.4); NEUTROPHILS 46.4 % (40-80); PLATELET COUNT 171 10x3/uL (130-400); RBC 4.19 10x6/uL (4.20-6.10); WBC 4.4 10x3/uL (4.8-10.8)
[2017-08-10 07:25] LABS: URIC ACID 3.5 mg/dL (2.6-7.2)
[2017-08-10 12:01] VITALS: BP 172/77
[2017-08-10 12:28] LABS: ANION GAP 26.1 mmol/L (8-16); BILIRUBIN - TOTAL 0.9 mg/dL (0.2-1.3); CALCIUM 9.2 mg/dL (8.5-10.1); CARBON DIOXIDE 18.7 mmol/L (21.0-32.0); CREATININE - SERUM 9.5 mg/dL (0.6-1.3); POTASSIUM - SERUM 4.8 mmol/L (3.5-5.1); PROTEIN - SERUM 8.2 g/dL (6.4-8.2)
[2017-08-10 18:32] VITALS: BP 174/69
[2017-08-11 00:01] VITALS: BP 174/76
[2017-08-11 06:17] LABS: ALBUMIN 2.6 g/dL (3.4-5.0); ANION GAP 23.1 mmol/L (8-16); CREATININE - SERUM 11.8 mg/dL (0.6-1.3); POTASSIUM - SERUM 5.1 mmol/L (3.5-5.1); PROTEIN - SERUM 7.4 g/dL (6.4-8.2)
[2017-08-11 06:21] VITALS: BP 114/75
[2017-08-11 12:00] VITALS: BP 169/72
[2017-08-11 18:00] VITALS: BP 148/83
[2017-08-12 00:28] VITALS: BP 159/68
[2017-08-12 00:41] VITALS: BP 159/68
[2017-08-12 06:39] VITALS: BP 139/64
[2017-08-12 07:02] LABS: BASOPHILS 0.5 % (0-2); EOSINOPHILS 10.6 % (0-7); HEMATOCRIT 36.5 % (42.0-54.0); HEMOGLOBIN 11.5 g/dL (13.5-17.5); MCH 28.4 pg (26.0-34.0); MCHC 31.5 g/dL (31.0-37.0); MCV 90.1 fL (80.0-100.0); MEAN PLATELET VOLUME 10.8 fL (7.4-10.4); MONOCYTES 12.1 % (2-11); NEUTROPHILS 49.8 % (40-80); PLATELET COUNT 153 10x3/uL (130-400); RBC 4.05 10x6/uL (4.20-6.10); RDW 17.6 % (11.5-14.5)
[2017-08-12 10:20] LABS: ANA REFLEX - ANTICHROMATIN ABS <0.2 AI (0.0-0.9); ANA REFLEX - CENTROMERE B ABS 0.2 AI (0.0-0.9); ANA REFLEX - DBL STRANDED DNA 1 IU/mL (0-9); ANA REFLEX - DIRECT Positive (Negative); ANA REFLEX - JO-1 AB <0.2 AI (0.0-0.9); ANA REFLEX - RNP ANTIBODIES 3.2 AI (0.0-0.9); ANA REFLEX - SCL-70 <0.2 AI (0.0-0.9); ANA REFLEX - SJOGRENS AB SSA <0.2 AI (0.0-0.9); ANA REFLEX - SJOGRENS AB SSB <0.2 AI (0.0-0.9); ANA REFLEX - SMITH AB <0.2 AI (0.0-0.9)
[2017-08-12 11:45] VITALS: BP 136/74
[2017-08-12 16:17] LABS: HEPATITIS C ANTIBODY >11.0 (0.0-0.9)
[2017-08-12 18:00] VITALS: BP 154/63
[2017-08-13 00:15] VITALS: BP 164/65
[2017-08-13 06:32] VITALS: BP 166/70
[2017-08-13 07:34] LABS: EOSINOPHILS 11.3 % (0-7); HEMATOCRIT 36.3 % (42.0-54.0); HEMOGLOBIN 11.4 g/dL (13.5-17.5); LYMPHOCYTES 32.5 % (15-50); MCH 28.1 pg (26.0-34.0); MCHC 31.4 g/dL (31.0-37.0); MCV 89.6 fL (80.0-100.0); MEAN PLATELET VOLUME 11.6 fL (7.4-10.4); NEUTROPHILS 46.2 % (40-80); PLATELET COUNT 151 10x3/uL (130-400); RBC 4.05 10x6/uL (4.20-6.10); RDW 17.5 % (11.5-14.5); WBC 3.9 10x3/uL (4.8-10.8)
[2017-08-13 07:43] LABS: ALBUMIN 2.7 g/dL (3.4-5.0); ANION GAP 21.3 mmol/L (8-16); BILIRUBIN - TOTAL 1.11 mg/dL (0.2-1.3); CALCIUM 9.2 mg/dL (8.5-10.1); CARBON DIOXIDE 21.6 mmol/L (21.0-32.0); CREATININE - SERUM 11.4 mg/dL (0.6-1.3); PHOSPHOROUS 3.9 mg/dL (2.5-4.9); POTASSIUM - SERUM 4.9 mmol/L (3.5-5.1); PROTEIN - SERUM 7.8 g/dL (6.4-8.2)
[2017-08-13 12:42] VITALS: BP 135/66
[2017-08-13 18:00] VITALS: BP 110/67
[2017-08-13 18:19] VITALS: BP 134/71
[2017-08-13 19:12] LABS: MITOCHONDRIAL ANTIBODY 8.8 Units (0.0-20.0)
[2017-08-14 00:12] VITALS: BP 130/62
[2017-08-14 05:44] VITALS: BP 142/92
[2017-08-14 06:43] LABS: BASOPHILS 0.4 % (0-2); EOSINOPHILS 8.8 % (0-7); HEMATOCRIT 35.5 % (42.0-54.0); HEMOGLOBIN 11.3 g/dL (13.5-17.5); IMMATURE GRANULOCYTES 0.2 % (0-5); LYMPHOCYTES 28.5 % (15-50); MCH 28.5 pg (26.0-34.0); MCHC 31.8 g/dL (31.0-37.0); MCV 89.4 fL (80.0-100.0); MEAN PLATELET VOLUME 11.2 fL (7.4-10.4); MONOCYTES 9.7 % (2-11); NEUTROPHILS 52.4 % (40-80); PLATELET COUNT 146 10x3/uL (130-400); RBC 3.97 10x6/uL (4.20-6.10); RDW 17.7 % (11.5-14.5); WBC 4.5 10x3/uL (4.8-10.8)
[2017-08-14 07:28] LABS: ALBUMIN 2.8 g/dL (3.4-5.0); BILIRUBIN - DIRECT 0.28 mg/dL (0.00-0.30); BILIRUBIN - INDIRECT 0.55 mg/dL (0.00-1.00); BILIRUBIN - TOTAL 0.83 mg/dL (0.2-1.3); PHOSPHOROUS 3.4 mg/dL (2.5-4.9); PROTEIN - SERUM 7.8 g/dL (6.4-8.2)
[2017-08-14] MEDS ORDERED: QUESTRAN LIG1 PACKET PO (08:03)
[2017-08-14] MEDS ORDERED: CORDARONE200 MG PO (08:03)
[2017-08-14] MEDS ORDERED: LISINOPRIL5 MG PO (08:03)
[2017-08-14] MEDS ORDERED: LANOXIN125 MCG PO (08:03)
[2017-08-14] MEDS ORDERED: CATAPRES-T1 PATCH.WK TRANSDERM (08:03)
[2017-08-14] MEDS ORDERED: CATAPRES0.1 MG PO (08:03)
[2017-08-14] MEDS ORDERED: COREG12.5 MG PO (08:03)
[2017-08-14] MEDS ORDERED: DILANTIN 12525 MG/ML PO (08:04)
[2017-08-14] MEDS ORDERED: ULTRAM50 MG PO (08:04)
[2017-08-14] MEDS ORDERED: GABAPENTIN100 MG PO (08:04)
[2017-08-14] MEDS ORDERED: NEPHRO-VITE RX1 TAB PO (08:05)
[2017-08-14] MEDS ORDERED: GAS-X80 MG PO (08:05)
[2017-08-14] MEDS ORDERED: PREMARIN0.3 MG PO (08:05)
[2017-08-14] MEDS ORDERED: PROTONIX40 MG PO (08:05)
[2017-08-14] MEDS ORDERED: RENAGEL800 MG PO (08:05)
[2017-08-14] MEDS ORDERED: MEGACE400 MG/10 PO (08:05)
[2017-08-14] MEDS ORDERED: SYNTHROID150 MCG PO (08:05)
[2017-08-14] MEDS ORDERED: MELATONIN 3 MG1 TAB PO (08:06)
== END 2017-08-14 11:50 | disposition home health service (06) | DRG 91 ==
LOC: D.REHAB 10:41
PROVIDERS: Emergency Medicine; Internal Medicine; Internal Medicine Gastroenterology; Internal Medicine Nephrology
PROC: 5A1D70Z Performance of Urinary Filtration, Intermittent, Less than 6 Hours Per Day (ICD-10-PCS; principal; 2017-08-06)
DX: G72.81 Critical illness myopathy (principal); N18.6 End stage renal disease; J96.20 Acute and chronic respiratory failure, unspecified whether with hypoxia or hypercapnia; K85.90 Acute pancreatitis without necrosis or infection, unspecified; J15.1 Pneumonia due to Pseudomonas; I12.0 Hypertensive chronic kidney disease with stage 5 chronic kidney disease or end stage renal disease; K56.609 Unspecified intestinal obstruction, unspecified as to partial versus complete obstruction; G81.94 Hemiplegia, unspecified affecting left nondominant side; Z99.2 Dependence on renal dialysis; I48.91 Unspecified atrial fibrillation; R13.10 Dysphagia, unspecified; G40.909 Epilepsy, unspecified, not intractable, without status epilepticus; E03.9 Hypothyroidism, unspecified; D64.9 Anemia, unspecified; K21.9 Gastro-esophageal reflux disease without esophagitis; E83.39 Other disorders of phosphorus metabolism; E16.2 Hypoglycemia, unspecified

== ENCOUNTER 2017-08-18 11:20 | Inpatient (IN) | payer MEDICARE ==
[~2017-08-18] VITALS: Ht 167.6 cm; Wt 49.9 kg
--- NOTE | ~2017-08-18 | DS ---
PATIENT:JEANNETTE SAHA :55 MEDICAL RECORD: [id number] DISCHARGE SUMMARY ADMISSION DATE: 08/18/17 DISCHARGE DATE: 08/27/17 HISTORY OF PRESENT ILLNESS: Mr. Saha is a 61-year-old black male, who had a recent cranial resection which turned out to be a large blood clot, was discharged recently from rehab with improvement of his left hemiparesis. Current history dates to the day of admission where he experienced a fall at home, brought to the Emergency Room with possible recurrence of his CVA. HOSPITAL COURSE: The patient was admitted and his CT was essentially unchanged, seen by Dr. Nowak who had previously evacuated his hematoma, who did not feel he had a recurrent hematoma. He was progressing well when he developed an episode of possible ileus. Nasogastric tube was placed and then developed GI bleeding, moved to the intensive care unit, due to his Jehovah Witness status and continued on erythropoietin and dialysis. He had an EGD done by Dr. Rodriguez that revealed NG trauma, no evidence of acute gastric pathology. The NG was removed, treated symptomatically and his last hemoglobin was 10.2 here without any evidence of further bleeding. During this time, he otherwise was stable, his left hemiparesis was stable, he was able to progress on his ambulation, and he underwent acute dialysis without difficulty. At the time of discharge, he was back to baseline. DISCHARGE DIAGNOSES: 1. Status post fall. 2. Status post GI bleeding, evidence of NG trauma on EGD. 3. Recent left hemiparesis, post parietal blood clot resection. 4. End-stage renal disease. 5. Restorationist. 6. Chronic anemia. PLAN: The patient will be discharged today. He will be in [facility] on Friday. I will see him in dialysis next week. He will continue his renal diet, ambulation with a walker, home health. DISCHARGE MEDICATIONS: Synthroid 50 mcg daily, Renvela 2400 t.i.d. Procrit, he will receive in the dialysis unit. Norvasc 10 mg at bedtime, Apresoline 50 b.i.d., Carafate 1 g q.i.d., Protonix 40 mg daily, lisinopril 5 mg b.i.d., Cordarone 100 b.i.d., Dilantin 100 q.8, clonidine patch 0.2 q.72, Lanoxin 0.125 twice weekly, Coreg 12.5 b.i.d. TRANSINT:[id number] Voice Confirmation ID: [id number] DOCUMENT ID: [id number] CC: LILIAM Samuels MD at 0653 CC: [id number] DICTATION DATE: 08/27/17 0755 WOOD POLE TREATER: 08/27/17 1146 DIS IN 08/27/17 [place] [id number] [place] [address]
[~2017-08-18 11:20] MED LIST changes: +CATAPRES-T1 PATCH.WK TRANSDERM; +DILANTIN 12525 MG/ML PO; +GAS-X80 MG PO; +LANOXIN125 MCG PO; +MELATONIN 3 MG1 TAB PO; +PREMARIN0.3 MG PO; +QUESTRAN LIG1 PACKET PO; +SYNTHROID150 MCG PO; +ULTRAM50 MG PO
[2017-08-18 12:00] VITALS: BP 174/82
[2017-08-18 13:59] LABS: BASOPHILS 0.3 % (0-2); EOSINOPHILS 0.6 % (0-7); HEMATOCRIT 37.8 % (42.0-54.0); LYMPHOCYTES 20.2 % (15-50); MCH 28.7 pg (26.0-34.0); MCHC 31.7 g/dL (31.0-37.0); MCV 90.4 fL (80.0-100.0); MEAN PLATELET VOLUME 10.8 fL (7.4-10.4); MONOCYTES 14.4 % (2-11); NEUTROPHILS 64.5 % (40-80); PLATELET COUNT 141 10x3/uL (130-400); RBC 4.18 10x6/uL (4.20-6.10); RDW 19.3 % (11.5-14.5); WBC 3.6 10x3/uL (4.8-10.8)
[2017-08-18 14:00] VITALS: BP 171/79
[2017-08-18 14:12] LABS: INR 1.25 (0.85-1.17); PROTIME 15.3 SECONDS (11.6-15.0)
[2017-08-18 14:13] LABS: APTT 39.7 SECONDS (22.8-39.4)
[2017-08-18 14:22] LABS: ALBUMIN 2.8 g/dL (3.4-5.0); ANION GAP 25.5 mmol/L (8-16); BILIRUBIN - TOTAL 0.91 mg/dL (0.2-1.3); CALCIUM 9.8 mg/dL (8.5-10.1); CREATININE - SERUM 8.5 mg/dL (0.6-1.3); POTASSIUM - SERUM 4.5 mmol/L (3.5-5.1); PROTEIN - SERUM 7.9 g/dL (6.4-8.2)
[2017-08-18 16:00] VITALS: BP 165/82
[2017-08-18 18:27] VITALS: BP 173/74; BMI 18.1
[2017-08-18 20:00] VITALS: BP 159/99; BP 163/61
[2017-08-19 04:00] VITALS: BP 160/71
[2017-08-19 06:33] LABS: BASOPHILS 0.3 % (0-2); EOSINOPHILS 2.3 % (0-7); HEMATOCRIT 36.5 % (42.0-54.0); HEMOGLOBIN 11.7 g/dL (13.5-17.5); LYMPHOCYTES 27.8 % (15-50); MCH 28.6 pg (26.0-34.0); MCHC 32.1 g/dL (31.0-37.0); MCV 89.2 fL (80.0-100.0); MONOCYTES 18.2 % (2-11); NEUTROPHILS 51.4 % (40-80); PLATELET COUNT 155 10x3/uL (130-400); RBC 4.09 10x6/uL (4.20-6.10); RDW 19.8 % (11.5-14.5)
[2017-08-19 07:06] LABS: ANION GAP 26.3 mmol/L (8-16); CALCIUM 9.7 mg/dL (8.5-10.1); CARBON DIOXIDE 23.6 mmol/L (21.0-32.0); CREATININE - SERUM 9.6 mg/dL (0.6-1.3); DIGOXIN 0.89 ng/mL (0.90-2.00); PHOSPHOROUS 3.6 mg/dL (2.5-4.9); POTASSIUM - SERUM 4.9 mmol/L (3.5-5.1); THYROID STIMULATING HORMONE 2.41 uIU/mL (0.36-3.74)
[2017-08-19 08:29] VITALS: BP 157/73
[2017-08-19 10:36] LABS: ALBUMIN 2.8 g/dL (3.4-5.0); BILIRUBIN - DIRECT 0.39 mg/dL (0.00-0.30); BILIRUBIN - INDIRECT 0.37 mg/dL (0.00-1.00); BILIRUBIN - TOTAL 0.76 mg/dL (0.2-1.3); PROTEIN - SERUM 7.6 g/dL (6.4-8.2)
[2017-08-19 11:45] VITALS: BP 162/69
[2017-08-19 15:49] VITALS: BP 152/68
[2017-08-19 20:00] VITALS: BP 170/81
[2017-08-20 04:00] VITALS: BP 171/73
[2017-08-20 09:06] VITALS: BP 170/77
[2017-08-20 13:26] VITALS: BP 170/77
[2017-08-20 17:31] VITALS: BP 140/75
[2017-08-20 21:05] VITALS: BP 133/71
[2017-08-21 01:36] VITALS: BP 138/73
[2017-08-21 06:09] VITALS: BP 165/72
[2017-08-21 08:48] LABS: BASOPHILS 0.6 % (0-2); EOSINOPHILS 2.8 % (0-7); HEMATOCRIT 39.3 % (42.0-54.0); HEMOGLOBIN 12.7 g/dL (13.5-17.5); IMMATURE GRANULOCYTES 0.3 % (0-5); LYMPHOCYTES 33.2 % (15-50); MCH 28.2 pg (26.0-34.0); MCHC 32.3 g/dL (31.0-37.0); MEAN PLATELET VOLUME 11.2 fL (7.4-10.4); MONOCYTES 20.1 % (2-11); RBC 4.51 10x6/uL (4.20-6.10); RDW 18.4 % (11.5-14.5); WBC 3.6 10x3/uL (4.8-10.8)
[2017-08-21 08:50] LABS: MCV 87.1 fL (80.0-100.0); PLATELET COUNT 192 10x3/uL (130-400)
[2017-08-21 09:08] VITALS: BP 139/59
[2017-08-21 09:26] LABS: ANION GAP 25.3 mmol/L (8-16); CALCIUM 9.3 mg/dL (8.5-10.1); CREATININE - SERUM 8.9 mg/dL (0.6-1.3); PHOSPHOROUS 3.1 mg/dL (2.5-4.9); POTASSIUM - SERUM 4.3 mmol/L (3.5-5.1); THYROID STIMULATING HORMONE 3.76 uIU/mL (0.36-3.74)
[2017-08-21 12:38] VITALS: BP 169/76
[2017-08-21 16:46] VITALS: BP 159/73
[2017-08-21 20:41] VITALS: BP 160/72
[2017-08-22 00:31] VITALS: BP 160/75
[2017-08-22 06:04] VITALS: BP 164/75
[2017-08-22 07:04] LABS: HEMATOCRIT 37.7 % (42.0-54.0); HEMOGLOBIN 11.9 g/dL (13.5-17.5); MCH 28.3 pg (26.0-34.0); MCHC 31.6 g/dL (31.0-37.0); MEAN PLATELET VOLUME 10.3 fL (7.4-10.4); PLATELET COUNT 191 10x3/uL (130-400); RBC 4.21 10x6/uL (4.20-6.10); RDW 18.6 % (11.5-14.5)
[2017-08-22 07:09] LABS: MCV 89.5 fL (80.0-100.0); WBC 5.2 10x3/uL (4.8-10.8)
[2017-08-22 07:19] LABS: ANION GAP 32.6 mmol/L (8-16); CREATININE - SERUM 10.4 mg/dL (0.6-1.3); POTASSIUM - SERUM 4.6 mmol/L (3.5-5.1)
[2017-08-22 07:38] LABS: PHOSPHOROUS 4.7 mg/dL (2.5-4.9)
[2017-08-22 07:53] VITALS: BP 130/79
[2017-08-22 08:23] LABS: EOSINOPHILS 4 % (0-7); LYMPHOCYTES 15 % (15-50); MONOCYTES 16 % (2-11); NEUTROPHILS 58 % (40-80)
[2017-08-22 08:24] LABS: PLATELET ESTIMATE NORMAL; PLATELET MORPHOLOGY NORMAL PLT MORPH
[2017-08-22 10:20] LABS: INR 1.22 (0.85-1.17)
[2017-08-22 11:00] VITALS: BP 140/62
[2017-08-22 13:15] LABS: SMOOTH MUSCLE ABS (ACTIN) 24 Units (0-19)
[2017-08-22 20:35] VITALS: BP 174/78
[2017-08-23 00:21] VITALS: BP 168/79
[2017-08-23 05:07] VITALS: BP 167/74
[2017-08-23 06:06] LABS: BASOPHILS 0.3 % (0-2); EOSINOPHILS 7.5 % (0-7); HEMATOCRIT 32.9 % (42.0-54.0); HEMOGLOBIN 10.8 g/dL (13.5-17.5); IMMATURE GRANULOCYTES 0.2 % (0-5); LYMPHOCYTES 23.1 % (15-50); MCH 28.1 pg (26.0-34.0); MCHC 32.8 g/dL (31.0-37.0); MEAN PLATELET VOLUME 9.6 fL (7.4-10.4); MONOCYTES 11.6 % (2-11); NEUTROPHILS 57.3 % (40-80); PLATELET COUNT 205 10x3/uL (130-400); RBC 3.85 10x6/uL (4.20-6.10); RDW 18.1 % (11.5-14.5)
[2017-08-23 06:14] LABS: MCV 85.5 fL (80.0-100.0)
[2017-08-23 06:26] LABS: ANION GAP 24.5 mmol/L (8-16); CALCIUM 8.5 mg/dL (8.5-10.1); CREATININE - SERUM 11.9 mg/dL (0.6-1.3); PHOSPHOROUS 3.8 mg/dL (2.5-4.9); POTASSIUM - SERUM 4.3 mmol/L (3.5-5.1)
[2017-08-23 06:28] LABS: CARBON DIOXIDE 20.8 mmol/L (21.0-32.0)
[2017-08-23 08:45] VITALS: BP 181/79
[2017-08-23 15:54] VITALS: BP 140/80
[2017-08-23 21:43] VITALS: BP 148/75
[2017-08-24 03:03] VITALS: BP 150/68
[2017-08-24 08:13] VITALS: BP 162/81
[2017-08-24 11:53] VITALS: BP 142/70
[2017-08-24 15:37] VITALS: BP 129/61
[2017-08-24 20:30] VITALS: BP 171/75
[2017-08-25 00:30] VITALS: BP 153/71
[2017-08-25 04:30] VITALS: BP 157/68
[2017-08-25 05:35] LABS: BASOPHILS 0.2 % (0-2); EOSINOPHILS 10.4 % (0-7); HEMATOCRIT 34.4 % (42.0-54.0); HEMOGLOBIN 11.2 g/dL (13.5-17.5); IMMATURE GRANULOCYTES 0.2 % (0-5); LYMPHOCYTES 23.5 % (15-50); MCH 27.8 pg (26.0-34.0); MCHC 32.6 g/dL (31.0-37.0); MCV 85.4 fL (80.0-100.0); MEAN PLATELET VOLUME 9.9 fL (7.4-10.4); MONOCYTES 12.1 % (2-11); NEUTROPHILS 53.6 % (40-80); PLATELET COUNT 192 10x3/uL (130-400); RBC 4.03 10x6/uL (4.20-6.10)
[2017-08-25 06:03] LABS: ANION GAP 17.9 mmol/L (8-16); CARBON DIOXIDE 27.4 mmol/L (21.0-32.0); POTASSIUM - SERUM 3.3 mmol/L (3.5-5.1)
[2017-08-25 06:22] LABS: WBC 4.1 10x3/uL (4.8-10.8)
[2017-08-25 09:13] VITALS: BP 159/80
[2017-08-25 12:02] VITALS: BP 134/76
[2017-08-25 14:33] VITALS: Ht 167.6 cm; Wt 49.9 kg
[2017-08-25 15:42] VITALS: BP 155/71
[2017-08-26 00:02] VITALS: BP 115/70
[2017-08-26 05:57] LABS: BASOPHILS 0.4 % (0-2); EOSINOPHILS 8.8 % (0-7); HEMATOCRIT 31.7 % (42.0-54.0); HEMOGLOBIN 10.2 g/dL (13.5-17.5); IMMATURE GRANULOCYTES 0.4 % (0-5); LYMPHOCYTES 20.3 % (15-50); MCH 27.6 pg (26.0-34.0); MCHC 32.2 g/dL (31.0-37.0); MCV 85.7 fL (80.0-100.0); MEAN PLATELET VOLUME 10.6 fL (7.4-10.4); MONOCYTES 10.1 % (2-11); PLATELET COUNT 206 10x3/uL (130-400); RDW 17.9 % (11.5-14.5)
[2017-08-26 05:58] LABS: WBC 5.6 10x3/uL (4.8-10.8)
[2017-08-26 06:07] VITALS: BP 172/78
[2017-08-26 07:09] LABS: ANION GAP 22.4 mmol/L (8-16); CALCIUM 7.8 mg/dL (8.5-10.1); CARBON DIOXIDE 21.9 mmol/L (21.0-32.0); CREATININE - SERUM 10.6 mg/dL (0.6-1.3); PHOSPHOROUS 1.9 mg/dL (2.5-4.9)
[2017-08-26 07:12] LABS: POTASSIUM - SERUM 4.3 mmol/L (3.5-5.1)
[2017-08-26 15:09] VITALS: BP 135/71
[2017-08-26 20:52] VITALS: BP 163/76
[2017-08-27 01:42] VITALS: BP 153/67
[2017-08-27 05:48] LABS: BASOPHILS 0.3 % (0-2); EOSINOPHILS 8.4 % (0-7); HEMATOCRIT 32.5 % (42.0-54.0); HEMOGLOBIN 10.6 g/dL (13.5-17.5); IMMATURE GRANULOCYTES 0.3 % (0-5); LYMPHOCYTES 27.9 % (15-50); MCH 27.6 pg (26.0-34.0); MCHC 32.6 g/dL (31.0-37.0); MCV 84.6 fL (80.0-100.0); MEAN PLATELET VOLUME 10.6 fL (7.4-10.4); MONOCYTES 12.5 % (2-11); NEUTROPHILS 50.6 % (40-80); PLATELET COUNT 204 10x3/uL (130-400); RBC 3.84 10x6/uL (4.20-6.10); RDW 17.9 % (11.5-14.5)
[2017-08-27 06:02] LABS: WBC 3.8 10x3/uL (4.8-10.8)
[2017-08-27 06:08] LABS: CALCIUM 7.8 mg/dL (8.5-10.1); PHOSPHOROUS 2.2 mg/dL (2.5-4.9)
[2017-08-27 06:11] LABS: ANION GAP 14.6 mmol/L (8-16); CARBON DIOXIDE 27.8 mmol/L (21.0-32.0); CREATININE - SERUM 6.7 mg/dL (0.6-1.3); POTASSIUM - SERUM 3.4 mmol/L (3.5-5.1)
[2017-08-27 06:13] VITALS: BP 157/75
[2017-08-27 08:17] VITALS: BP 118/75
[2017-08-27 10:19] LABS: HIV-1 RNA BY PCR <20 (())
[2017-08-27] MEDS ORDERED: CARAFATE1 G PO (10:33)
[2017-08-27] MEDS ORDERED: HYDRALAZINE HCL50 MG PO (10:33)
[2017-08-27] MEDS ORDERED: CATAPRES TTS-20.2 MG TD (10:34)
[2017-08-27 10:58] VITALS: BP 126/78
== END 2017-08-27 11:50 | disposition home health service (06) | DRG 85 ==
LOC: D.ER 11:20 → D.EDHOLD 13:39 → D.M2 13:39
PROVIDERS: Family Medicine; Internal Medicine Gastroenterology; Internal Medicine Nephrology
PROC: 5A1D70Z Performance of Urinary Filtration, Intermittent, Less than 6 Hours Per Day (ICD-10-PCS; 2017-08-20)
PROC: 0D9670Z Drainage of Stomach with Drainage Device, Via Natural or Artificial Opening (ICD-10-PCS; 2017-08-21)
PROC: 0DJ08ZZ Inspection of Upper Intestinal Tract, Via Natural or Artificial Opening Endoscopic (ICD-10-PCS; principal; 2017-08-22 15:32)
DX: S06.5X0A Traumatic subdural hemorrhage without loss of consciousness, initial encounter (principal); N18.6 End stage renal disease; I13.2 Hypertensive heart and chronic kidney disease with heart failure and with stage 5 chronic kidney disease, or end stage renal disease; K56.7 Ileus, unspecified; K22.10 Ulcer of esophagus without bleeding; W19.XXXA Unspecified fall, initial encounter; I50.9 Heart failure, unspecified; I48.91 Unspecified atrial fibrillation; I25.10 Atherosclerotic heart disease of native coronary artery without angina pectoris; D63.1 Anemia in chronic kidney disease; K31.819 Angiodysplasia of stomach and duodenum without bleeding; K29.70 Gastritis, unspecified, without bleeding; R51 Headache; T85.898A Other specified complication of other internal prosthetic devices, implants and grafts, initial encounter; Y84.8 Other medical procedures as the cause of abnormal reaction of the patient, or of later complication, without mention of misadventure at the time of the procedure; Y92.239 Unspecified place in hospital as the place of occurrence of the external cause

== ENCOUNTER 2018-01-05 00:18 | Inpatient (IN) | payer MEDICARE ==
[2018-01-05] VITALS (15 sets, daily range): BP systolic 127–229; BP diastolic 79–99; Ht 167.6 cm; Wt 54.6 kg
[~2018-01-05] VITALS: Ht 167.6 cm; Wt 54.6 kg
--- NOTE | ~2018-01-05 | MORECARE ---
CASE MANAGEMENT DISCHARGE SUMMARY PATIENT: JEANNETTE SAHA UNIT: [id number] ADM DATE: 01/05/18 AGE: 62 : 55 SEX: M ROOM/BED: D.2301 AUTHOR: GREGORY FAY PHYSICIAN: REFERRING PHYSICIAN: MARYLOU PADGETT MD DATE OF SERVICE: 01/06/18 Discharge Plan Patient Name: JEANNETTE SAHA [facility] [facility] 1955 Planned Disposition: Home Anticipated Discharge Date: Discharge Date: Expected LOS: Initial Reviewer: [email or web address] Initial Review Date: 01/05/2018 Generated: 01/06/18 8:30 pm DCPIA - Discharge Planning Initial Assessment Updated by [email or web address]: Valencia Howard on 01/06/18 7:27 pm * Is the patient Alert and Oriented? Yes * How many steps to enter\exit or inside your home? * PCP Altagracia * Pharmacy [facility] * Preadmission Environment Home with Family * ADLs Partial Dependent * Partial ADLs (Assistance needed) Ambulation Bathing Dressing * Other Equipment Home 02 and portable 02, cane, walker, shower chair, wheelchair, life alert * List name and contact numbers for known caregivers / representatives who currently or will assist patient after discharge: Dari Saha - sister * Verbal permission to speak to the caregivers and representatives has been obtained from the patient. N/A * Community resources currently utilized None * Please name any agencies selected above. Hemodialysis MWF @ [facility] * Additional services required to return to the preadmission environment? No * Can the patient safely return to the preadmission environment? Yes * Has this patient been hospitalized within the prior 30 days at any hospital? No Patient Name: JEANNETTE SAHA Page [id number] at 1931 All edits/amendments must be made on the electronic document DICTATION DATE: 01/06/181929 ANESTHESIOLOGY PHYSICIAN ASSISTANT: LIN 01/06/181929 RPT#: [id number] DC DATE: STATUS: ADM IN [facility] [address] [place] [address] END OF REPORT
--- NOTE | ~2018-01-05 | MORECARE ---
CASE MANAGEMENT DISCHARGE SUMMARY PATIENT: JEANNETTE SAHA UNIT: [id number] ADM DATE: 01/05/18 AGE: 62 : 55 SEX: M ROOM/BED: D.2133 AUTHOR: NYA,DOC PHYSICIAN: REFERRING PHYSICIAN: MARYLOU PADGETT MD DATE OF SERVICE: 01/12/18 Discharge Plan Patient Name: JEANNETTE SAHA Facility: [facility]:[place] : 1955 Planned Disposition: Home with Home Health Anticipated Discharge Date: 01/13/18 Discharge Date: Expected LOS: 8 Initial Reviewer: [email or web address] Initial Review Date: 01/05/2018 Generated: 01/12/18 4:24 pm Comments DCP- Discharge Planning Updated by [email or web address]: Valencia Howard on 01/06/18 6:[address] Late Entry 01/06/18 @ 1125 Patient Name: JEANNETTE SAHA Admission Status: ER Accout number: [id number] Admission Date: 01-05-2018 : 1955 Admission Diagnosis: Attending: MARYLOU PADGETT Current LOS: 1 Anticipated DC Date: Planned Disposition: Home Primary Insurance: MEDICARE A & B Discharge Planning Comments: CM met with patient at bedside. Patient states that he and his sister live together and he plans to return to their home. Patient states he has dialysis MWF in [place]. Patient denies any discharge needs at this time. CM will continue to follow and assist as needed with discharge planning / needs. Graphics Specialist: Valencia Howard DCPIA - Discharge Planning Initial Assessment Updated by [email or web address]: Dany Montero on 01/12/18 3:23 pm * Is the patient Alert and Oriented? Yes * How many steps to enter\exit or inside your home? * PCP Altagracia * Pharmacy [facility] * Preadmission Environment Home with Family * ADLs Partial Dependent * Partial ADLs (Assistance needed) Ambulation Bathing Dressing * Other Equipment Home 02 and portable 02, cane, walker, shower chair, wheelchair, life alert * List name and contact numbers for known caregivers / representatives who currently or will assist patient after discharge: Dari Saha - sister, HARSHIL SAHA, BROTHER, GOOD DOMINGO DTR, * Verbal permission to speak to the caregivers and representatives has been obtained from the patient. N/A * Community resources currently utilized None * Please name any agencies selected above. Hemodialysis MWF @ [facility] [place] [place]; MWF, 0700AM, MEDICAID BUS TRANSPORTATION ($[address]) * Additional services required to return to the preadmission environment? No * Can the patient safely return to the preadmission environment? Yes * Has this patient been hospitalized within the prior 30 days at any hospital? No External Providers External Provider: [facility] Next Contact Date: 01/13/2018 Service Request Date: Service Type: Resolution: Reviewer: Comments: Coverage Notice Reviewer: [email or web address] Montero Notice Issued Date-Time: 01/12/2018 14:45 Notice Type: Patient Choice Letter Notice Delivered To: Patient Relationship to Patient: Fretted Instrument Inspector Name: Delivery Method: HAND - Hand Delivered Shira Days: Prior Verbal Notification: Recipient Understood Notice: Yes Recipient Signature: Yes Med Rec Note Co-signed by Attending: Coverage Notice Comment: [facility] Reviewer: [email or web address] Montero Notice Issued Date-Time: 01/12/2018 14:45 Notice Type: IM Discharge Notice Notice Delivered To: Patient Relationship to Patient: Fretted Instrument Inspector Name: Delivery Method: HAND - Hand Delivered Shira Days: Prior Verbal Notification: Recipient Understood Notice: Yes Recipient Signature: Yes Med Rec Note Co-signed by Attending: Coverage Notice Comment: Last DP export: 01/06/18 6:37 Patient Name: JEANNETTE SAHA Page [id number] at 1524 All edits/amendments must be made on the electronic document DICTATION DATE: 01/12/18 1524 GROUTMAN: LIN 01/12/18 1524 RPT#: [id number] DC DATE: STATUS: ADM IN [facility] [address] [place] [address] END OF REPORT
--- NOTE | ~2018-01-05 | MORECARE ---
CASE MANAGEMENT DISCHARGE SUMMARY PATIENT: JEANNETTE SAHA UNIT: [id number] ADM DATE: 01/05/18 AGE: 62 : 55 SEX: M ROOM/BED: D.2133 AUTHOR: NYA,DOC PHYSICIAN: REFERRING PHYSICIAN: MARYLOU PADGETT MD DATE OF SERVICE: 01/12/18 Discharge Plan Patient Name: JEANNETTE SAHA Facility: [facility]:[place] : 1955 Planned Disposition: Home with Home Health Anticipated Discharge Date: 01/13/18 Discharge Date: Expected LOS: 8 Initial Reviewer: [email or web address] Initial Review Date: 01/05/2018 Generated: 01/12/18 4:44 pm Comments DCP- Discharge Planning Updated by [email or web address]: Dany Montero on 01/12/18 2:[address] Patient Name: JEANNETTE SAHA Encounter No: [id number] : 1955 Primary Insurance: MEDICARE A & B Anticipated DC Date: 01-13-2018 Planned Disposition: Home with Home Health External Planned Provider: [facility] DCP follow-up note: CM RECEIVED ORDER FOR INPATIENT REHAB PRESCREENING, MET WITH PT IN ROOM TO DISCUSS DISCHARGE NEEDS AND PLANNING. CM DISCUSSED AVAILABILITY OF HOME HEALTH, REHAB SERVICES AND MEDICAL EQUIPMENT. PT DECLINES INPATIENT OR HALF-WAY THERAPY SERVICES. PT REPORTS THAT HE IS WANTING TO GO HOME AND WANTS HOME HEALTH; PT REQUESTED [facility] HE USED THEM IN THE PAST AND RECEIVED GOOD CARE AT HOME. CHOICE LETTER SIGNED FOR [facility]. PT REPORTS HIS BROTHER TO TRANSPORT HOME AT DISCHARGE. IMPORTANT MESSAGE FROM MEDICARE PROVIDED AND EXPLAINED. CM CALLED [facility], , SPOKE TO BARTOLOME AND PROVIDED REFERRAL INFORMATION. CM FAXED HOME HEALTH REFERRAL TO [facility] AT [phone]. CM PAGED [facility] TO ADVISE OF ABOVE AND REQUEST HOME HEALTH ORDERS. CM TO COMPLETE ARRANGEMENT FOR HOME HEALTH WITH [facility] FOR OBSERVATION AND ASSESSMENT [facility] WITH AGREEMENT AND RECEIPT OF PHYSICIAN ORDER FOR HOME HEALTH SERVICES. Dany Montero CASE MANAGEMENT DCP- Discharge Planning Updated by [email or web address]: Valencia Howard on 01/06/18 6:[address] Late Entry 01/06/18 @ 1125 Patient Name: JEANNETTE SAHA Admission Status: ER Accout number: [id number] Admission Date: 01-05-2018 : 1955 Admission Diagnosis: Attending: MARYLOU PADGETT Current LOS: 1 Anticipated DC Date: Planned Disposition: Home Primary Insurance: MEDICARE A & B Discharge Planning Comments: CM met with patient at bedside. Patient states that he and his sister live together and he plans to return to their home. Patient states he has dialysis MWF in [place]. Patient denies any discharge needs at this time. CM will continue to follow and assist as needed with discharge planning / needs. Wire Drawing Machine Tender: Valencia Howard DCPIA - Discharge Planning Initial Assessment Updated by [email or web address]: Dany Montero on 01/12/18 3:23 pm * Is the patient Alert and Oriented? Yes * How many steps to enter\exit or inside your home? * PCP Altagracia * Pharmacy [facility] * Preadmission Environment Home with Family * ADLs Partial Dependent * Partial ADLs (Assistance needed) Ambulation Bathing Dressing * Other Equipment Home 02 and portable 02, cane, walker, shower chair, wheelchair, life alert * List name and contact numbers for known caregivers / representatives who currently or will assist patient after discharge: Dari Saha - sister, HARSHIL SAHA, BROTHER, GOOD DOMINGO DTR, * Verbal permission to speak to the caregivers and representatives has been obtained from the patient. N/A * Community resources currently utilized None * Please name any agencies selected above. Hemodialysis MWF @ [facility]; MWF, 0700AM, MEDICAID BUS TRANSPORTATION ($[address]) * Additional services required to return to the preadmission environment? No * Can the patient safely return to the preadmission environment? Yes * Has this patient been hospitalized within the prior 30 days at any hospital? No Coverage Notice Reviewer: [email or web address] Montero Notice Issued Date-Time: 01/12/2018 14:45 Notice Type: Patient Choice Letter Notice Delivered To: Patient Relationship to Patient: Film Color Tester Name: Delivery Method: HAND - Hand Delivered Shira Days: Prior Verbal Notification: Recipient Understood Notice: Yes Recipient Signature: Yes Med Rec Note Co-signed by Attending: Coverage Notice Comment: [facility] Reviewer: [email or web address] Sheila Montero Notice Issued Date-Time: 01/12/2018 14:45 Notice Type: IM Discharge Notice Notice Delivered To: Patient Relationship to Patient: Film Color Tester Name: Delivery Method: HAND - Hand Delivered Shira Days: Prior Verbal Notification: Recipient Understood Notice: Yes Recipient Signature: Yes Med Rec Note Co-signed by Attending: Coverage Notice Comment: Last DP export: 01/12/18 2:24 Patient Name: JEANNETTE SAHA Page 14090 at 1544 All edits/amendments must be made on the electronic document DICTATION DATE: 01/12/18 1543 REINSPECTOR: LIN 01/12/18 1543 RPT#: [id number] DC DATE: STATUS: ADM IN [facility] [address] [place] [address] END OF REPORT
--- NOTE | ~2018-01-05 | MORECARE ---
CASE MANAGEMENT DISCHARGE SUMMARY PATIENT: JEANNETTE SAHA UNIT: [id number] ADM DATE: 01/05/18 AGE: 62 : 55 SEX: M ROOM/BED: D.2133 AUTHOR: GREGORY FAY PHYSICIAN: REFERRING PHYSICIAN: MARYLOU PADGETT MD DATE OF SERVICE: 01/14/18 Discharge Plan Patient Name: JEANNETTE SAHA Facility: [facility]:[place] : 1955 Planned Disposition: Home with Home Health Anticipated Discharge Date: 01/14/18 Discharge Date: Expected LOS: 9 Initial Reviewer: [email or web address] Initial Review Date: 01/05/2018 Generated: 01/14/18 12:16 pm Comments DCP- Discharge Planning Updated by [id number]: Dany Montero on 01/14/18 10:[address] Patient Name: JEANNETTE SAHA Encounter No: [id number] : 1955 Primary Insurance: MEDICARE A & B Anticipated DC Date: 01-14-2018 Planned Disposition: Home with Home Health External Planned Provider: [facility] DCP follow-up note: CM RECEIVED HOME HEALTH ORDERS, CALLED [facility], , SPOKE TO ANAMARIA WHO REPORTS HAVING PT ON SCHEDULE FOR ADMIT TOMORROW. CM FAXED DISCHARGE INFORMATION TO [facility] AT [phone]. [place] OPERATOR NURSE NOTIFIED. Dany Montero, CASE MANAGEMENT Dany Montero DCP- Discharge Planning Updated by [email or web address]: Dany Montero on 01/12/18 2:[address] Patient Name: JEANNETTE SAHA Encounter No: [id number] : 1955 Primary Insurance: MEDICARE A & B Anticipated DC Date: 01-13-2018 Planned Disposition: Home with Home Health External Planned Provider: [facility] DCP follow-up note: CM RECEIVED ORDER FOR INPATIENT REHAB PRESCREENING, MET WITH PT IN ROOM TO DISCUSS DISCHARGE NEEDS AND PLANNING. CM DISCUSSED AVAILABILITY OF HOME HEALTH, REHAB SERVICES AND MEDICAL EQUIPMENT. PT DECLINES INPATIENT OR PRISON THERAPY SERVICES. PT REPORTS THAT HE IS WANTING TO GO HOME AND WANTS HOME HEALTH; PT REQUESTED [facility] HE USED THEM IN THE PAST AND RECEIVED GOOD CARE AT HOME. CHOICE LETTER SIGNED FOR [facility]. PT REPORTS HIS BROTHER TO TRANSPORT HOME AT DISCHARGE. IMPORTANT MESSAGE FROM MEDICARE PROVIDED AND EXPLAINED. CM CALLED [facility], , SPOKE TO BARTOLOME AND PROVIDED REFERRAL INFORMATION. CM FAXED HOME HEALTH REFERRAL TO [facility] AT [phone]. CM PAGED [facility]EL [facility] TO ADVISE OF ABOVE AND REQUEST HOME HEALTH ORDERS. CM TO COMPLETE ARRANGEMENT FOR HOME HEALTH WITH [facility] FOR OBSERVATION AND ASSESSMENT [facility]ER[facility] WITH AGREEMENT AND RECEIPT OF PHYSICIAN ORDER FOR HOME HEALTH SERVICES. Dany Montero, CASE MANAGEMENT DCP- Discharge Planning Updated by [email or web address]: Valencia Howard on 01/06/18 6:[address] Late Entry 01/06/18 @ 1125 Patient Name: JEANNETTE SAHA Admission Status: ER Accout number: [id number] Admission Date: 01-05-2018 : 1955 Admission Diagnosis: Attending: MARYLOU PADGETT Current LOS: 1 Anticipated DC Date: Planned Disposition: Home Primary Insurance: MEDICARE A & B Discharge Planning Comments: CM met with patient at bedside. Patient states that he and his sister live together and he plans to return to their home. Patient states he has dialysis MWF in [place]. Patient denies any discharge needs at this time. CM will continue to follow and assist as needed with discharge planning / needs. Furniture Decals Inspector: Valencia Howard DCPIA - Discharge Planning Initial Assessment Updated by [email or web address]: Dany Montero on 01/12/18 3:23 pm * Is the patient Alert and Oriented? Yes * How many steps to enter\exit or inside your home? * PCP Altagracia * [facility] * Preadmission Environment Home with Family * ADLs Partial Dependent * Partial ADLs (Assistance needed) Ambulation Bathing Dressing * Other Equipment Home 02 and portable 02, cane, walker, shower chair, wheelchair, life alert * List name and contact numbers for known caregivers / representatives who currently or will assist patient after discharge: Dari Saha - sister, HARSHIL SAHA, BROTHER, GOOD DOMINGO DTR, * Verbal permission to speak to the caregivers and representatives has been obtained from the patient. N/A * Community resources currently utilized None * Please name any agencies selected above. Hemodialysis MWF @ [facility]; MWF, 0700AM, MEDICAID BUS TRANSPORTATION ($[address]) * Additional services required to return to the preadmission environment? No * Can the patient safely return to the preadmission environment? Yes * Has this patient been hospitalized within the prior 30 days at any hospital? No Coverage Notice Reviewer: [email or web address] Montero Notice Issued Date-Time: 01/12/2018 14:45 Notice Type: Patient Choice Letter Notice Delivered To: Patient Relationship to Patient: Creche Attendant Name: Delivery Method: HAND - Hand Delivered Shira Days: Prior Verbal Notification: Recipient Understood Notice: Yes Recipient Signature: Yes Med Rec Note Co-signed by Attending: Coverage Notice Comment: [facility] Reviewer: [id number] Montero Notice Issued Date-Time: 01/12/2018 14:45 Notice Type: IM Discharge Notice Notice Delivered To: Patient Relationship to Patient: Creche Attendant Name: Delivery Method: HAND - Hand Delivered Shira Days: Prior Verbal Notification: Recipient Understood Notice: Yes Recipient Signature: Yes Med Rec Note Co-signed by Attending: Coverage Notice Comment: Last DP export: 01/12/18 2:44 Patient Name: JEANNETTE SAHA Page 67584 at 1116 All edits/amendments must be made on the electronic document DICTATION DATE: 01/14/181114 GENERAL PASSENGER AGENT: LIN 01/14/181114 RPT#: [id number] DC DATE: STATUS: ADM IN [facility] [address] [place] [address] END OF REPORT
--- NOTE | ~2018-01-05 | DS ---
PATIENT:JEANNETTE SAHA :55 MEDICAL RECORD: [id number] DISCHARGE SUMMARY ADMISSION DATE: 01/05/18 DISCHARGE DATE: 01/14/18 HISTORY OF PRESENT ILLNESS: Mr. Saha is a 62-year-old black male with end-stage renal disease. 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 He has been stable. 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 Nowak and postoperatively, he had Dilantin coverage for 6 months without evidence of any seizure activity and consequently the Dilantin was discontinued earlier this year. CURRENT HISTORY: The patient's family brought the patient to the Emergency Room in [place] and transferred here with altered mental status and recurrent confusion and epileptic activity primarily on the left and was admitted for the above. HOSPITAL COURSE: The patient was treated with p.r.n. Ativan IV for his seizure activity. His initial CT revealed his postsurgical changes, but no other major new issues. His MRI confirmed the above with scarring, but no masses, etc. were noted. He was begun on oral Keppra therapy and did well with that, seen by Dr. Nowak since he was the neurosurgeon who had done his resection last year, who felt like this was probably postoperative in nature and not a new issue, so he was restarted on his anti-seizure drugs and will continue this on a long-term basis. He continued on his acute dialysis and physical therapy and he was back to baseline at the time of discharge. DISCHARGE DIAGNOSES: 1. Anticonvulsive seizure activity now on long-term anticonvulsive therapy. 2. Quaker, history of gastrointestinal bleeding. 3. End-stage renal disease, chronic dialysis. 4. Hypertension. DISCHARGE PLAN: The patient will be discharged today. I will see him in [place] dialysis. He will continue his renal diet, ambulation as tolerated. He declines rehab placement. DISCHARGE MEDICATIONS: Will be clonidine 0.1 b.i.d., PhosLo 1 t.i.d., Coreg 6.25 b.i.d., Keppra 750 b.i.d. He will have Premarin 0.3 daily, baby aspirin 1 daily, Protonix 40 mg daily, Lanoxin, BIW Friday, Friday and Synthroid 150 mcg daily and Carafate 1 g a.c. and Cordarone 100 b.i.d. We will see him weekly in [facility]. TRANSINT:[id number] Voice Confirmation ID: [id number] DOCUMENT ID: [id number] LILIAM HADDAD MD at 0724 CC: [id number] DICTATION DATE: 01/14/18 08 SEWER SEPARATION DESIGNER: 01/15/18 0046 DIS IN 01/14/18 [place] [id number] [place] [address]
--- NOTE | ~2018-01-05 | MORECARE ---
CASE MANAGEMENT DISCHARGE SUMMARY PATIENT: JEANNETTE SAHA UNIT: [id number] ADM DATE: 01/05/18 AGE: 62 : 55 SEX: M ROOM/BED: D.2301 AUTHOR: NYA,DOC PHYSICIAN: REFERRING PHYSICIAN: MARYLOU PADGETT MD DATE OF SERVICE: 01/06/18 Discharge Plan Patient Name: JEANNETTE SAHA Facility: [facility]:[place] : 1955 Planned Disposition: Home Anticipated Discharge Date: Discharge Date: Expected LOS: Initial Reviewer: [email or web address] Initial Review Date: 01/05/2018 Generated: 01/06/18 8:37 pm Comments DCP- Discharge Planning Updated by [email or web address]: Valencia Howard on 01/06/18 6:[address] Late Entry 01/06/18 @ 1125 Patient Name: JEANNETTE SAHA Admission Status: ER Accout number: [id number] Admission Date: 01-05-2018 : 1955 Admission Diagnosis: Attending: MARYLOU PADGETT Current LOS: 1 Anticipated DC Date: Planned Disposition: Home Primary Insurance: MEDICARE A & B Discharge Planning Comments: CM met with patient at bedside. Patient states that he and his sister live together and he plans to return to their home. Patient states he has dialysis MWF in [place]. Patient denies any discharge needs at this time. CM will continue to follow and assist as needed with discharge planning / needs. Account Development Manager: Valencia Howard DCPIA - Discharge Planning Initial Assessment Updated by [email or web address]: Valencia Howard on 01/06/18 7:27 pm * Is the patient Alert and Oriented? Yes * How many steps to enter\exit or inside your home? * PCP Altagracia * Pharmacy [facility] * Preadmission Environment Home with Family * ADLs Partial Dependent * Partial ADLs (Assistance needed) Ambulation Bathing Dressing * Other Equipment Home 02 and portable 02, cane, walker, shower chair, wheelchair, life alert * List name and contact numbers for known caregivers / representatives who currently or will assist patient after discharge: Dari Saha - sister * Verbal permission to speak to the caregivers and representatives has been obtained from the patient. N/A * Community resources currently utilized None * Please name any agencies selected above. Hemodialysis MWF @ [facility] * Additional services required to return to the preadmission environment? No * Can the patient safely return to the preadmission environment? Yes * Has this patient been hospitalized within the prior 30 days at any hospital? No Last DP export: 01/06/18 6:30 Patient Name: JEANNETTE SAHA Page 06120 at 1937 All edits/amendments must be made on the electronic document DICTATION DATE: 01/06/181936 PURCHASING OFFICER: LIN 01/06/181936 RPT#: [id number] DC DATE: STATUS: ADM IN [facility] [address] [place] [address] END OF REPORT
[~2018-01-05 00:18] MED LIST changes: +CATAPRES TTS-20.2 MG TD
[2018-01-05 01:02] LABS: BASOPHILS 0.9 % (0-2); EOSINOPHILS 14.8 % (0-7); HEMATOCRIT 41.2 % (42.0-54.0); HEMOGLOBIN 12.6 g/dL (13.5-17.5); IMMATURE GRANULOCYTES 0.3 % (0-5); LYMPHOCYTES 29.7 % (15-50); MCH 31.3 pg (26.0-34.0); MCHC 30.6 g/dL (31.0-37.0); MCV 102.2 fL (80.0-100.0); MEAN PLATELET VOLUME 11.4 fL (7.4-10.4); MONOCYTES 7.7 % (2-11); NEUTROPHILS 46.6 % (40-80); PLATELET COUNT 192 10x3/uL (130-400); RBC 4.03 10x6/uL (4.20-6.10); RDW 16.3 % (11.5-14.5); WBC 6.3 10x3/uL (4.8-10.8)
[2018-01-05 01:15] LABS: ALBUMIN 3.8 g/dL (3.4-5.0); ANION GAP 34.2 mmol/L (8-16); BILIRUBIN - TOTAL 0.44 mg/dL (0.2-1.3); CALCIUM 8.6 mg/dL (8.5-10.1); CARBON DIOXIDE 15.7 mmol/L (21.0-32.0); CREATININE - SERUM 12.2 mg/dL (0.6-1.3); PROTEIN - SERUM 8.4 g/dL (6.4-8.2)
[2018-01-05 01:17] LABS: POTASSIUM - SERUM 6.9 mmol/L (3.5-5.1)
[2018-01-05] MEDS ORDERED: CATAPRES0.1 MG PO (02:55)
[2018-01-05] MEDS ORDERED: AMIODARONE HCL100 MG PO (02:56)
[2018-01-05] MEDS ORDERED: NORCO 10-325 TA1 TAB PO (02:56)
[2018-01-05] MEDS ORDERED: DESERYL50 M2 PO (02:57)
[2018-01-05 05:46] LABS: BASOPHILS 0.4 % (0-2); EOSINOPHILS 12.7 % (0-7); HEMATOCRIT 41.4 % (42.0-54.0); HEMOGLOBIN 12.6 g/dL (13.5-17.5); IMMATURE GRANULOCYTES 0.4 % (0-5); LYMPHOCYTES 15.5 % (15-50); MCH 31.3 pg (26.0-34.0); MCHC 30.4 g/dL (31.0-37.0); MCV 102.7 fL (80.0-100.0); MEAN PLATELET VOLUME 11.4 fL (7.4-10.4); MONOCYTES 10.2 % (2-11); NEUTROPHILS 60.8 % (40-80); RBC 4.03 10x6/uL (4.20-6.10); RDW 16.6 % (11.5-14.5)
[2018-01-05 05:49] LABS: PLATELET COUNT 244 10x3/uL (130-400); WBC 10.4 10x3/uL (4.8-10.8)
[2018-01-05 06:13] LABS: ALBUMIN 3.8 g/dL (3.4-5.0); ANION GAP 31.6 mmol/L (8-16); BILIRUBIN - TOTAL 0.45 mg/dL (0.2-1.3); CALCIUM 9.7 mg/dL (8.5-10.1); CREATININE - SERUM 12.6 mg/dL (0.6-1.3); MAGNESIUM - SERUM 2.6 mg/dL (1.8-2.4); PHOSPHOROUS 5.3 mg/dL (2.5-4.9); PROTEIN - SERUM 8.1 g/dL (6.4-8.2)
[2018-01-05 06:15] LABS: POTASSIUM - SERUM 5.6 mmol/L (3.5-5.1)
[2018-01-05 08:03] LABS: BASOPHILS 0.4 % (0-2); EOSINOPHILS 6.9 % (0-7); HEMATOCRIT 41.4 % (42.0-54.0); HEMOGLOBIN 12.9 g/dL (13.5-17.5); IMMATURE GRANULOCYTES 0.8 % (0-5); LYMPHOCYTES 11.2 % (15-50); MCH 31.9 pg (26.0-34.0); MCHC 31.2 g/dL (31.0-37.0); MCV 102.2 fL (80.0-100.0); MEAN PLATELET VOLUME 11.7 fL (7.4-10.4); MONOCYTES 5.2 % (2-11); NEUTROPHILS 75.5 % (40-80); PLATELET COUNT 244 10x3/uL (130-400); RBC 4.05 10x6/uL (4.20-6.10); RDW 16.5 % (11.5-14.5); WBC 11.8 10x3/uL (4.8-10.8)
[2018-01-05 08:45] LABS: ALKALINE PHOSPHATASE 273 U/L (46-116); ALT (SGPT) 43 U/L (10-68); BILIRUBIN - TOTAL 0.46 mg/dL (0.2-1.3); CALC OSMOLALITY 282 mosm/kg (275-300); CALCIUM 9.7 mg/dL (8.5-10.1); CARBON DIOXIDE 13.1 mmol/L (21.0-32.0); CHLORIDE - SERUM 91 mmol/L (98-107); CKMB 2.3 U/L (0.0-3.6); CREATINE KINASE 42 UL (21-232); GLUCOSE 73 mg/dL (74-106); PROTEIN - SERUM 8.4 g/dL (6.4-8.2); SODIUM 132 mmol/L (136-145); UREA NITROGEN 66 mg/dL (7-18); eGFR NON AFRICAN AMERICAN 4 mL/min (90-120)
[2018-01-05 08:49] LABS: POTASSIUM - SERUM 7.1 mmol/L (3.5-5.1); TROPONIN-I 0.085 ng/mL (0.000-0.060)
[2018-01-06] VITALS (27 sets, daily range): BP systolic 143–232; BP diastolic 81–100
[2018-01-06 05:04] LABS: INR 1.26 (0.85-1.17); PROTIME 15.5 SECONDS (11.6-15.0)
[2018-01-06 05:32] LABS: ALBUMIN 4.3 g/dL (3.4-5.0); BILIRUBIN - TOTAL 0.52 mg/dL (0.2-1.3); CHOL - HDL RATIO 2.5 ratio (2.3-4.9); LDL-HDL RATIO 1.1 ratio (1.5-3.5); POTASSIUM - SERUM 4.7 mmol/L (3.5-5.1); PROTEIN - SERUM 9.3 g/dL (6.4-8.2)
[2018-01-06 05:37] LABS: ANION GAP 36.4 mmol/L (8-16); CARBON DIOXIDE 17.3 mmol/L (21.0-32.0); TROPONIN-I 0.213 ng/mL (0.000-0.060)
[2018-01-06 16:47] LABS: CKMB 3.6 U/L (0.0-3.6); CREATINE KINASE 255 UL (21-232)
[2018-01-06 16:49] LABS: TROPONIN-I 0.191 ng/mL (0.000-0.060)
[2018-01-07] VITALS (20 sets, daily range): BP systolic 91–196; BP diastolic 56–99
[2018-01-07 05:00] LABS: BASOPHILS 0.3 % (0-2); EOSINOPHILS 0.8 % (0-7); HEMATOCRIT 41.4 % (42.0-54.0); HEMOGLOBIN 13.4 g/dL (13.5-17.5); IMMATURE GRANULOCYTES 0.1 % (0-5); LYMPHOCYTES 17.7 % (15-50); MCH 31.2 pg (26.0-34.0); MCHC 32.4 g/dL (31.0-37.0); MEAN PLATELET VOLUME 11.7 fL (7.4-10.4); MONOCYTES 15.3 % (2-11); NEUTROPHILS 65.8 % (40-80); PLATELET COUNT 221 10x3/uL (130-400); RBC 4.29 10x6/uL (4.20-6.10); RDW 16.2 % (11.5-14.5)
[2018-01-07 05:25] LABS: BILIRUBIN - TOTAL 0.49 mg/dL (0.2-1.3); CALCIUM 7.9 mg/dL (8.5-10.1); CARBON DIOXIDE 17.9 mmol/L (21.0-32.0); CREATININE - SERUM 14.5 mg/dL (0.6-1.3); POTASSIUM - SERUM 5.4 mmol/L (3.5-5.1); PROTEIN - SERUM 8.3 g/dL (6.4-8.2)
[2018-01-07 05:26] LABS: PHOSPHOROUS 9.1 mg/dL (2.5-4.9)
[2018-01-07 05:27] LABS: ANION GAP 35.5 mmol/L (8-16)
[2018-01-07 05:31] LABS: MCV 96.5 fL (80.0-100.0); WBC 7.5 10x3/uL (4.8-10.8)
[2018-01-07 18:10] LABS: SPE - A/G RATIO 1.3 (0.7-1.7); SPE - ALBUMIN 4.8 g/dL (2.9-4.4); SPE - ALPHA-1 GLOBULIN 0.3 g/dL (0.0-0.4); SPE - ALPHA-2 GLOBULIN 0.9 g/dL (0.4-1.0); SPE - BETA GLOBULIN 1.2 g/dL (0.7-1.3); SPE - GAMMA GLOBULIN 1.3 g/dL (0.4-1.8); SPE - M-SPIKE Not Observed g/dL (Not Observed); SPE - TOTAL PROTEIN 8.5 g/dL (6.0-8.5)
[2018-01-08] VITALS (24 sets, daily range): BP systolic 118–175; BP diastolic 46–85
[2018-01-08 04:50] LABS: BASOPHILS 0.6 % (0-2); EOSINOPHILS 7.2 % (0-7); HEMOGLOBIN 14.5 g/dL (13.5-17.5); IMMATURE GRANULOCYTES 0.2 % (0-5); LYMPHOCYTES 19.6 % (15-50); MCH 31.2 pg (26.0-34.0); MCHC 32.2 g/dL (31.0-37.0); MCV 96.8 fL (80.0-100.0); MEAN PLATELET VOLUME 12.1 fL (7.4-10.4); MONOCYTES 17.5 % (2-11); NEUTROPHILS 54.9 % (40-80); RBC 4.65 10x6/uL (4.20-6.10); RDW 15.8 % (11.5-14.5)
[2018-01-08 04:56] LABS: PLATELET COUNT 168 10x3/uL (130-400); WBC 5.2 10x3/uL (4.8-10.8)
[2018-01-08 05:11] LABS: ALBUMIN 3.8 g/dL (3.4-5.0); BILIRUBIN - TOTAL 0.46 mg/dL (0.2-1.3); CALCIUM 8.2 mg/dL (8.5-10.1); PROTEIN - SERUM 8.7 g/dL (6.4-8.2)
[2018-01-08 05:22] LABS: ANION GAP 21.7 mmol/L (8-16); CARBON DIOXIDE 24.6 mmol/L (21.0-32.0); CREATININE - SERUM 9.4 mg/dL (0.6-1.3); PHOSPHOROUS 5.7 mg/dL (2.5-4.9); POTASSIUM - SERUM 3.3 mmol/L (3.5-5.1)
[2018-01-09] VITALS (25 sets, daily range): BP systolic 79–153; BP diastolic 38–83
[2018-01-09 08:29] LABS: BASOPHILS 0.2 % (0-2); EOSINOPHILS 15.6 % (0-7); HEMATOCRIT 43.2 % (42.0-54.0); HEMOGLOBIN 13.9 g/dL (13.5-17.5); IMMATURE GRANULOCYTES 0.2 % (0-5); LYMPHOCYTES 21.5 % (15-50); MCHC 32.2 g/dL (31.0-37.0); MCV 96.4 fL (80.0-100.0); MEAN PLATELET VOLUME 10.8 fL (7.4-10.4); MONOCYTES 12.1 % (2-11); NEUTROPHILS 50.4 % (40-80); PLATELET COUNT 156 10x3/uL (130-400); RBC 4.48 10x6/uL (4.20-6.10); RDW 15.8 % (11.5-14.5); WBC 5.1 10x3/uL (4.8-10.8)
[2018-01-09 08:42] LABS: ANION GAP 22.2 mmol/L (8-16); CARBON DIOXIDE 22.2 mmol/L (21.0-32.0); CREATININE - SERUM 11.7 mg/dL (0.6-1.3); POTASSIUM - SERUM 4.4 mmol/L (3.5-5.1)
[2018-01-10] VITALS (24 sets, daily range): BP systolic 79–144; BP diastolic 17–75
[2018-01-10 03:54] LABS: BASOPHILS 0.4 % (0-2); EOSINOPHILS 15.3 % (0-7); HEMATOCRIT 43.5 % (42.0-54.0); HEMOGLOBIN 14.1 g/dL (13.5-17.5); IMMATURE GRANULOCYTES 0.2 % (0-5); LYMPHOCYTES 22.6 % (15-50); MCH 31.1 pg (26.0-34.0); MCHC 32.4 g/dL (31.0-37.0); MCV 95.8 fL (80.0-100.0); MEAN PLATELET VOLUME 11.2 fL (7.4-10.4); MONOCYTES 14.6 % (2-11); NEUTROPHILS 46.9 % (40-80); PLATELET COUNT 162 10x3/uL (130-400); RBC 4.54 10x6/uL (4.20-6.10); RDW 15.4 % (11.5-14.5); WBC 5.7 10x3/uL (4.8-10.8)
[2018-01-10 04:05] LABS: ANION GAP 22.7 mmol/L (8-16); CALCIUM 8.2 mg/dL (8.5-10.1); CARBON DIOXIDE 24.2 mmol/L (21.0-32.0); CREATININE - SERUM 9.4 mg/dL (0.6-1.3); POTASSIUM - SERUM 3.9 mmol/L (3.5-5.1)
[2018-01-11] VITALS (11 sets, daily range): BP systolic 88–147; BP diastolic 54–95
[2018-01-11 03:45] LABS: BASOPHILS 0.4 % (0-2); EOSINOPHILS 19.1 % (0-7); HEMATOCRIT 40.4 % (42.0-54.0); HEMOGLOBIN 13.1 g/dL (13.5-17.5); IMMATURE GRANULOCYTES 0.2 % (0-5); LYMPHOCYTES 21.7 % (15-50); MCHC 32.4 g/dL (31.0-37.0); MCV 95.5 fL (80.0-100.0); MEAN PLATELET VOLUME 11.9 fL (7.4-10.4); MONOCYTES 13.5 % (2-11); NEUTROPHILS 45.1 % (40-80); PLATELET COUNT 138 10x3/uL (130-400); RBC 4.23 10x6/uL (4.20-6.10); RDW 15.5 % (11.5-14.5)
[2018-01-11 04:00] LABS: ANION GAP 18.8 mmol/L (8-16); CALCIUM 7.8 mg/dL (8.5-10.1); CARBON DIOXIDE 27.2 mmol/L (21.0-32.0); CREATININE - SERUM 11.3 mg/dL (0.6-1.3)
[2018-01-12] VITALS: BP 141/66
[2018-01-12 04:00] VITALS: BP 138/59
[2018-01-12 06:51] LABS: BASOPHILS 0.4 % (0-2); EOSINOPHILS 18.5 % (0-7); HEMOGLOBIN 12.7 g/dL (13.5-17.5); IMMATURE GRANULOCYTES 0.2 % (0-5); LYMPHOCYTES 21.5 % (15-50); MCH 30.4 pg (26.0-34.0); MCHC 31.8 g/dL (31.0-37.0); MCV 95.7 fL (80.0-100.0); MEAN PLATELET VOLUME 12.1 fL (7.4-10.4); MONOCYTES 9.4 % (2-11); PLATELET COUNT 138 10x3/uL (130-400); RBC 4.18 10x6/uL (4.20-6.10); RDW 15.5 % (11.5-14.5)
[2018-01-12 07:04] LABS: ANION GAP 21.7 mmol/L (8-16); CALCIUM 7.8 mg/dL (8.5-10.1); CARBON DIOXIDE 23.2 mmol/L (21.0-32.0); CREATININE - SERUM 12.9 mg/dL (0.6-1.3); POTASSIUM - SERUM 3.9 mmol/L (3.5-5.1)
[2018-01-12 08:06] VITALS: BP 152/68
[2018-01-12 16:03] VITALS: BP 148/69
[2018-01-12 19:00] VITALS: BP 155/76
[2018-01-13 00:45] VITALS: BP 169/77
[2018-01-13 04:57] VITALS: BP 184/76
[2018-01-13 06:19] LABS: BASOPHILS 0.8 % (0-2); EOSINOPHILS 15.6 % (0-7); HEMATOCRIT 45.1 % (42.0-54.0); HEMOGLOBIN 14.4 g/dL (13.5-17.5); IMMATURE GRANULOCYTES 0.2 % (0-5); LYMPHOCYTES 15.6 % (15-50); MCH 30.8 pg (26.0-34.0); MCHC 31.9 g/dL (31.0-37.0); MCV 96.4 fL (80.0-100.0); MEAN PLATELET VOLUME 12.4 fL (7.4-10.4); MONOCYTES 16.8 % (2-11); RBC 4.68 10x6/uL (4.20-6.10); RDW 15.6 % (11.5-14.5); WBC 5.1 10x3/uL (4.8-10.8)
[2018-01-13 06:56] LABS: ANION GAP 19.9 mmol/L (8-16); CALCIUM 9.2 mg/dL (8.5-10.1); CARBON DIOXIDE 26.4 mmol/L (21.0-32.0); PHOSPHOROUS 4.4 mg/dL (2.5-4.9); PLATELET COUNT 174 10x3/uL (130-400)
[2018-01-13 07:02] LABS: CREATININE - SERUM 9.4 mg/dL (0.6-1.3)
[2018-01-13 07:03] LABS: POTASSIUM - SERUM 4.3 mmol/L (3.5-5.1)
[2018-01-13 08:40] VITALS: BP 188/80
[2018-01-13 12:22] VITALS: BP 170/64
[2018-01-13 20:42] VITALS: BP 169/69
[2018-01-14 01:09] VITALS: BP 139/62
[2018-01-14 04:48] VITALS: BP 141/74
[2018-01-14 06:33] LABS: CALCIUM 8.8 mg/dL (8.5-10.1); CARBON DIOXIDE 25.3 mmol/L (21.0-32.0); CREATININE - SERUM 11.6 mg/dL (0.6-1.3); POTASSIUM - SERUM 4.3 mmol/L (3.5-5.1)
[2018-01-14 08:09] VITALS: BP 144/61
[2018-01-14] MEDS ORDERED: COREG6.25 MG PO (10:12)
[2018-01-14] MEDS ORDERED: KEPPRA750 MG PO (10:16)
[2018-01-14] MEDS ORDERED: PREMARIN0.3 MG PO (11:06)
== END 2018-01-14 14:42 | disposition home health service (06) | DRG 100 ==
LOC: D.ER 00:18 → OBSVTIME 02:23 → D.ICU 02:23 → D.M2 02:23 → D.ICU 08:53 → D.M2 10:30
PROVIDERS: Family Medicine; Internal Medicine; Internal Medicine Nephrology
PROC: 5A1D70Z Performance of Urinary Filtration, Intermittent, Less than 6 Hours Per Day (ICD-10-PCS; principal; 2018-01-05)
DX: G40.909 Epilepsy, unspecified, not intractable, without status epilepticus (principal); N18.6 End stage renal disease; I12.0 Hypertensive chronic kidney disease with stage 5 chronic kidney disease or end stage renal disease; G81.94 Hemiplegia, unspecified affecting left nondominant side; E87.5 Hyperkalemia; Z99.2 Dependence on renal dialysis; K21.9 Gastro-esophageal reflux disease without esophagitis; R07.9 Chest pain, unspecified; Z96.652 Presence of left artificial knee joint; I95.9 Hypotension, unspecified; R41.0 Disorientation, unspecified; G93.89 Other specified disorders of brain

== ENCOUNTER 2018-09-29 23:10 | Inpatient (IN) | payer MEDICARE ==
[~2018-09-29] VITALS: Ht 167.6 cm; Wt 59.4 kg
[~2018-09-29 23:10] MED LIST changes: +AMIODARONE HCL100 MG PO; +COREG6.25 MG PO; +DESERYL50 M2 PO; +KEPPRA750 MG PO; +NORCO 10-325 TA1 TAB PO
--- NOTE | 2018-09-29 23:20 | NUR ---
REST TECH TO BEDSIDE. MD TO BEDSIDE.
[2018-09-29 23:51] LABS: HEMOGLOBIN 12.7 g/dL (13.5-17.5); LYMPHOCYTES 12.7 % (15-50); MCH 29.3 pg (26.0-34.0); MCHC 32.6 g/dL (31.0-37.0); MCV 89.9 fL (80.0-100.0); MEAN PLATELET VOLUME 11.6 fL (7.4-10.4); NEUTROPHILS 81.3 % (40-80); PLATELET COUNT 146 10x3/uL (130-400); RBC 4.34 10x6/uL (4.20-6.10); RDW 16.1 % (11.5-14.5); WBC 9.2 10x3/uL (4.8-10.8)
[2018-09-30] VITALS (9 sets, daily range): BP systolic 144–206; BP diastolic 81–104; Ht 167.6 cm; Wt 59.4 kg
[2018-09-30 00:19] LABS: ALBUMIN 3.4 g/dL (3.4-5.0); ALKALINE PHOSPHATASE 283 U/L (46-116); ALT (SGPT) 7 U/L (10-68); AMYLASE - SERUM 279 U/L (25-115); BILIRUBIN - TOTAL 0.51 mg/dL (0.2-1.3); CALC OSMOLALITY 295 mosm/kg (275-300); CALCIUM 8.4 mg/dL (8.5-10.1); CARBON DIOXIDE 21.1 mmol/L (21.0-32.0); CHLORIDE - SERUM 102 mmol/L (98-107); CKMB 1.1 U/L (0.0-3.6); CREATINE KINASE 111 UL (21-232); CREATININE - SERUM 11.2 mg/dL (0.6-1.3); GLUCOSE 108 mg/dL (74-106); LIPASE 96 U/L (73-393); PROTEIN - SERUM 7.3 g/dL (6.4-8.2); SODIUM 141 mmol/L (136-145); UREA NITROGEN 52 mg/dL (7-18); eGFR NON AFRICAN AMERICAN 5 mL/min (90-120)
[2018-09-30 00:22] LABS: POTASSIUM - SERUM 6.2 mmol/L (3.5-5.1); PRO BNP 265293 pg/mL (0-125)
[2018-09-30 00:23] LABS: TROPONIN-I 0.075 ng/mL (0.000-0.060)
--- NOTE | 2018-09-30 01:12 | NUR ---
PT PROVIDED WITH WARM BLANKETS FOR COMFORT. PT DAUGHTER CALLED TO CHECK STATUS, PERMISSION GIVEN BY PT TO RELAY INFORMATION. DAUGHTER STATES SHE WILL CALL BACK LATER FOR UPDATED INFORMATION ON ROOM ASSIGNMENT. PT DENIES FURTHER NEEDS AT THIS TIME.
--- NOTE | 2018-09-30 01:43 | NUR ---
PT TO RADIOLOGY.
--- NOTE | 2018-09-30 01:58 | NUR ---
PT RETURNED FROM RADIOLOGY.
--- NOTE | 2018-09-30 03:20 | NUR ---
PT'S DAUGHTER CALLED FOR UPDATE ON STATUS. VOICED UNDERSTANDING OF ADMIT STATUS AND ROOM ASSIGNMENT 2124, STATED SHE WILL BE IN TOMORROW AFTERNOON TO SEE HIM. PT INFORMED OF THIS CALL.
--- NOTE | 2018-09-30 03:45 | NUR ---
ARRIVES VIA WC FROM ER TO BED AND 02 AT TWO LITERS CONTINUE LCTA SKIN WARM AND DRY AND PT DENIES PAIN OR NEEDS BED IS LOW AND LOCKED AND CALL LIGHT PROVIDED
[2018-09-30] MEDS ORDERED: HYDROCODON-ACE1 EA10 PO (03:54)
[2018-09-30] MEDS ORDERED: RESTORIL15 MG PO (03:54)
--- NOTE | 2018-09-30 04:44 | NUR ---
NOTE NO TELEMETRY AVAILABLE PER PT DOES NOT HAVE A CARDIAC DX AND NO CONTINOUS SPO2 AVAILABLE ON THIS UNIT PT IS RUNNING 100% ON 2L/NC
--- NOTE | 2018-09-30 05:43 | NUR ---
FOUND IV TO BE OCLUDED RETRY FOR IV X2 WITH NO SUCCESS
[2018-09-30 06:51] LABS: BASOPHILS 0.1 % (0-2); EOSINOPHILS 0.6 % (0-7); HEMATOCRIT 34.8 % (42.0-54.0); HEMOGLOBIN 11.4 g/dL (13.5-17.5); IMMATURE GRANULOCYTES 0.1 % (0-5); LYMPHOCYTES 10.3 % (15-50); MCH 28.6 pg (26.0-34.0); MCHC 32.8 g/dL (31.0-37.0); MEAN PLATELET VOLUME 11.3 fL (7.4-10.4); MONOCYTES 4.2 % (2-11); NEUTROPHILS 84.7 % (40-80); PLATELET COUNT 119 10x3/uL (130-400); RBC 3.98 10x6/uL (4.20-6.10); RDW 15.6 % (11.5-14.5); WBC 6.9 10x3/uL (4.8-10.8)
[2018-09-30 07:12] LABS: ANION GAP 19.5 mmol/L (8-16); CALCIUM 8.4 mg/dL (8.5-10.1); CARBON DIOXIDE 23.2 mmol/L (21.0-32.0); CREATININE - SERUM 11.7 mg/dL (0.6-1.3); MAGNESIUM - SERUM 2.1 mg/dL (1.8-2.4); PHOSPHOROUS 2.2 mg/dL (2.5-4.9); POTASSIUM - SERUM 5.7 mmol/L (3.5-5.1)
[2018-09-30 07:24] LABS: MCV 87.4 fL (80.0-100.0)
--- NOTE | 2018-09-30 09:54 | NUR ---
IV STARTED TO RIGHT AC BY NASIR VILLEGAS WITH 20 GAUGE CATH X 1 STICK TO RIGHT AC. LINE IS PATENT.
--- NOTE | 2018-09-30 11:19 | NUR ---
LEAVING FOR DIALYSIS BY BED. WILL CONT. PLAN OF CARE.
--- NOTE | 2018-09-30 14:52 | NUR ---
BACK FROM DIALYSIS. VS STABLE.
--- NOTE | 2018-09-30 19:38 | NUR ---
REPORT RECIEVED AND ROUNDING COMPLETE. PATIEN IS LAYING IN BED WITH CONTINUOUS O2 MONITOR ON. O2 AT 98. PATIENT HAS A RIGHT AC PIV THAT IS SALINE LOCKED AT THIS TIME, PIV SHOWING NO S/SX OF INFILTRATION OR INFECTION. PATIENT HAS A LEFT FISTULA THAT HAS BADGE ON C/D/I FROM DIALYSIS TODAY. PATIENT IS WEARING O2 AT 2L NASAL CANNULA AT THIS TIME. PATIENT STATES HE HAS NO NEEDS AT THIS TIME. CALL LIGHT WITHIN REACH AND BED IN LOWEST LOCKED POSITION.
--- NOTE | 2018-09-30 22:05 | NUR ---
PATIENT PIV IN RIGHT AC NO LONGER WILL FLUSH, REMOVED THIS PIV AND PLACED A 20 GAUGE IN RIGHT FOREARM, 1 STICK PATIENT TOLERATED WELL. NO OTHER NEEDS AT THIS TIME. CALL LIGHT WITH IN REACH AND BED IN LOWEST LOCKED POSITION.
[2018-10-01 00:56] VITALS: BP 176/93
[2018-10-01 00:58] VITALS: BP 168/69
--- NOTE | 2018-10-01 04:02 | NUR ---
I have reviewed this patient and I concur with the Shift Assessment completed by the Licensed Practical Nurse today this shift.
[2018-10-01 05:01] VITALS: BP 174/76
[2018-10-01 05:23] LABS: ANION GAP 12.9 mmol/L (8-16); CALCIUM 7.9 mg/dL (8.5-10.1); POTASSIUM - SERUM 4.9 mmol/L (3.5-5.1)
[2018-10-01 05:24] LABS: BASOPHILS 0.2 % (0-2); CREATININE - SERUM 8.5 mg/dL (0.6-1.3); EOSINOPHILS 3.5 % (0-7); HEMATOCRIT 33.5 % (42.0-54.0); HEMOGLOBIN 11.1 g/dL (13.5-17.5); LYMPHOCYTES 19.8 % (15-50); MCH 28.7 pg (26.0-34.0); MCHC 33.1 g/dL (31.0-37.0); MCV 86.6 fL (80.0-100.0); MEAN PLATELET VOLUME 12.4 fL (7.4-10.4); MONOCYTES 8.4 % (2-11); NEUTROPHILS 68.1 % (40-80); PLATELET COUNT 116 10x3/uL (130-400); RBC 3.87 10x6/uL (4.20-6.10); RDW 15.6 % (11.5-14.5)
[2018-10-01 05:25] LABS: WBC 5.1 10x3/uL (4.8-10.8)
--- NOTE | 2018-10-01 07:40 | NUR ---
Assessment completed. alert and oriented. TELEEMENTRY SHOWS SR. PT HAS A LEFT AVF. O2 AT 2 L/M PER NC. DENIES ANY NEEDS. SR UP WITH CALL LIGHT IN REACH
[2018-10-01 08:57] VITALS: BP 162/73
[2018-10-01 13:07] VITALS: BP 155/70
[2018-10-01] MEDS ORDERED: LEVAQUIN750 MG PO ×2 (15:43)
--- NOTE | 2018-10-01 17:48 | MORECARE ---
CASE MANAGEMENT DISCHARGE SUMMARY PATIENT: JEANNETTE LYLES UNIT: [id number] ADM DATE: 09/30/18 AGE: 62 : 55 SEX: M ROOM/BED: D.4589 AUTHOR: GREGORY FAY PHYSICIAN: REFERRING PHYSICIAN: GAVIN GUEVARA MD DATE OF SERVICE: 10/01/18 Discharge Plan Patient Name: JEANNETTE LYLES Facility: [facility]:[place] : 1955 Planned Disposition: Home Anticipated Discharge Date: 10/01/18 Discharge Date: Expected LOS: 1 Initial Reviewer: [email or web address] Initial Review Date: 10/01/2018 Generated: 10/01/18 6:48 pm DCPIA - Discharge Planning Initial Assessment Updated by [email or web address]: Dany Montero on 10/01/18 5:46 pm * Is the patient Alert and Oriented? Yes * How many steps to enter\exit or inside your home? NONE * PCP DR. HADDAD * Pharmacy [facility] [place] * Preadmission Environment Home with Family * ADLs Independent * Equipment Cane Oxygen Shower Chair Walker Wheelchair * Other Equipment [facility] - HOME AND PORTABLE OXYGEN * List name and contact numbers for known caregivers / representatives who currently or will assist patient after discharge: MONICA LYLES, SISTER, HARSHIL LYLES, BROTHER, GOOD JOSE L, DTR, * Verbal permission to speak to the caregivers and representatives has been obtained from the patient. N/A * Community resources currently utilized Other * Please name any agencies selected above. OUTPATIENT DIALYSIS, [facility], MWF, 0700, [place] MEDICA[facility] TRANSPORT ($[address]) * Additional services required to return to the preadmission environment? No * Can the patient safely return to the preadmission environment? Yes * Has this patient been hospitalized within the prior 30 days at any hospital? No Patient Name: JEANNETTE LYLES Page 14985 at 3606 All edits/amendments must be made on the electronic document DICTATION DATE: 10/01/181747 NUT CRACKER: LIN 10/01/181747 RPT#: [id number] [place] DATE: STATUS: ADM IN [facility] [address] [place] [address] END OF REPORT
--- NOTE | 2018-10-01 17:56 | MORECARE ---
CASE MANAGEMENT DISCHARGE SUMMARY PATIENT: JEANNETTE LYLES UNIT: [id number] ADM DATE: 09/30/18 AGE: 62 : 55 SEX: M ROOM/BED: D.7305 AUTHOR: NYADOC PHYSICIAN: REFERRING PHYSICIAN: GAVIN GUEVARA MD DATE OF SERVICE: 10/01/18 Discharge Plan Patient Name: JEANNETTE LYLES Facility: [facility]:[place] : 1955 Planned Disposition: Home Anticipated Discharge Date: 10/01/18 Discharge Date: Expected LOS: 1 Initial Reviewer: [email or web address] Initial Review Date: 10/01/2018 Generated: 10/01/18 6:55 pm Comments DCP- Discharge Planning Updated by [email or web address]: Dany Montero on 10/01/18 4:[address] Patient Name: JEANNETTE LYLES Admission Status: ER Accout number: [id number] Admission Date: 09-30-2018 : 1955 Admission Diagnosis: Attending: GAVIN GUEVARA Current LOS: 1 Anticipated DC Date: 10-01-2018 Planned Disposition: Home Primary Insurance: MEDICARE A & B Discharge Planning Comments: CM MET WITH PT IN ROOM TO DISCUSS DISCHARGE PLANNING AND NEEDS. PT REPORTS LIVING AT HOME INDEPENDENTLY WITH FAMILY PT HAS CANE, WALKER, SHOWER CHAIR, WHEELCHAIR AND HOME/PORTABLE OXYGEN FROM [facility]. PT HAS NO OUTSIDE SERVICES ASSISTING IN THE HOME. PT ATTENDS OUTPATIENT DIALYSIS, [facility], MWF, 0700, [place] [facility] TRANSPORT ($[address]). CM DISCUSSED AVAILABILITY OF HOME HEALTH, REHAB SERVICES AND MEDICAL EQUIPMENT. PT DENIES DISCHARGE NEEDS, REPORTS HIS BROTHER WILL PICK HIM UP FOR DISCHARGE HOME. Field Service Rep: Dany Montero DCPIA - Discharge Planning Initial Assessment Updated by [email or web address]: Dany Montero on 10/01/18 5:46 pm * Is the patient Alert and Oriented? Yes * How many steps to enter\exit or inside your home? NONE * PCP DR. HADDAD * Pharmacy [facility] IN [place] * Preadmission Environment Home with Family * ADLs Independent * Equipment Cane Oxygen Shower Chair Walker Wheelchair * Other Equipment [facility] - HOME AND PORTABLE OXYGEN * List name and contact numbers for known caregivers / representatives who currently or will assist patient after discharge: MONICA LYLES, SISTER, HARSHIL LYLES, BROTHER, GOOD DOMINGO, DTR, * Verbal permission to speak to the caregivers and representatives has been obtained from the patient. N/A * Community resources currently utilized Other * Please name any agencies selected above. OUTPATIENT DIALYSIS, [facility], MWF, 0700, [place] TRANSPORT ($[address]) * Additional services required to return to the preadmission environment? No * Can the patient safely return to the preadmission environment? Yes * Has this patient been hospitalized within the prior 30 days at any hospital? No Last DP export: 10/01/18 4:48 p Patient Name: JEANNETTE LYLES Page 09420 at 1756 All edits/amendments must be made on the electronic document DICTATION DATE: 10/01/181754 FLAT GRINDER OPERATOR: LIN 10/01/181754 RPT#: [id number] [place] DATE: STATUS: ADM IN [facility] [address] [place] [address] END OF REPORT
--- NOTE | 2018-10-01 18:10 | NUR ---
PT DISCHARGE. IV DCD TO PRIVATE CAR PER WC
== END 2018-10-01 18:12 | disposition home or self-care (01) | DRG 291 ==
LOC: D.ER 23:10 → D.M2 09-30 02:24
PROVIDERS: Family Medicine; ADMIT Internal Medicine Nephrology; ATTEND Internal Medicine Nephrology
DX: I13.2 Hypertensive heart and chronic kidney disease with heart failure and with stage 5 chronic kidney disease, or end stage renal disease (principal); N18.6 End stage renal disease; J18.9 Pneumonia, unspecified organism; J98.11 Atelectasis; E11.22 Type 2 diabetes mellitus with diabetic chronic kidney disease; I50.9 Heart failure, unspecified; E87.5 Hyperkalemia; G40.909 Epilepsy, unspecified, not intractable, without status epilepticus; J44.9 Chronic obstructive pulmonary disease, unspecified; I48.91 Unspecified atrial fibrillation; K59.00 Constipation, unspecified; Z86.73 Personal history of transient ischemic attack (TIA), and cerebral infarction without residual deficits

== ENCOUNTER 2018-10-05 05:36 | Inpatient (IN) | payer MEDICARE ==
[~2018-10-05] VITALS: Ht 167.6 cm; Wt 56.7 kg
[2018-10-05] VITALS: BP 143/77
[~2018-10-05 05:36] MED LIST changes: +HYDROCODON-ACE1 EA10 PO; +LEVAQUIN750 MG PO
[2018-10-05 06:18] LABS: BASOPHILS 0.4 % (0-2); EOSINOPHILS 4.6 % (0-7); HEMATOCRIT 38.7 % (42.0-54.0); HEMOGLOBIN 12.8 g/dL (13.5-17.5); IMMATURE GRANULOCYTES 0.2 % (0-5); LYMPHOCYTES 14.8 % (15-50); MCH 29.2 pg (26.0-34.0); MCHC 33.1 g/dL (31.0-37.0); MCV 88.4 fL (80.0-100.0); MEAN PLATELET VOLUME 12.3 fL (7.4-10.4); MONOCYTES 5.8 % (2-11); NEUTROPHILS 74.2 % (40-80); RBC 4.38 10x6/uL (4.20-6.10); RDW 15.6 % (11.5-14.5)
[2018-10-05 06:22] VITALS: BP 185/94
[2018-10-05 06:27] LABS: INR 1.05 (0.85-1.17); PROTIME 13.2 SECONDS (11.6-15.0)
[2018-10-05 06:30] LABS: ALBUMIN 3.5 g/dL (3.4-5.0); ALKALINE PHOSPHATASE 314 U/L (46-116); ALT (SGPT) 16 U/L (10-68); BILIRUBIN - TOTAL 0.51 mg/dL (0.2-1.3); CALC OSMOLALITY 288 mosm/kg (275-300); CALCIUM 8.4 mg/dL (8.5-10.1); CARBON DIOXIDE 23.2 mmol/L (21.0-32.0); CHLORIDE - SERUM 99 mmol/L (98-107); CREATININE - SERUM 12.1 mg/dL (0.6-1.3); POTASSIUM - SERUM 5.2 mmol/L (3.5-5.1); PROTEIN - SERUM 8.3 g/dL (6.4-8.2); SODIUM 136 mmol/L (136-145); UREA NITROGEN 52 mg/dL (7-18); eGFR NON AFRICAN AMERICAN 4 mL/min (90-120)
[2018-10-05 06:32] LABS: GLUCOSE 148 mg/dL (74-106)
[2018-10-05 06:36] LABS: PLATELET COUNT 197 10x3/uL (130-400)
[2018-10-05 06:45] LABS: CKMB 0.8 U/L (0.0-3.6); CREATINE KINASE 92 UL (21-232)
[2018-10-05 06:48] LABS: PRO BNP 323817 pg/mL (0-125)
[2018-10-05 06:49] LABS: TROPONIN-I 0.067 ng/mL (0.000-0.060)
[2018-10-05 08:39] VITALS: BP 195/87
[2018-10-05 09:00] VITALS: BP 195/87; BMI 20.2
[2018-10-05 11:43] VITALS: BP 188/86
[2018-10-05 20:00] VITALS: BP 146/84
[2018-10-06 04:00] VITALS: BP 184/88
[2018-10-06 05:45] LABS: BASOPHILS 0.4 % (0-2); EOSINOPHILS 4.8 % (0-7); HEMATOCRIT 34.2 % (42.0-54.0); HEMOGLOBIN 11.3 g/dL (13.5-17.5); LYMPHOCYTES 20.4 % (15-50); MCH 28.6 pg (26.0-34.0); MCV 86.6 fL (80.0-100.0); MEAN PLATELET VOLUME 11.9 fL (7.4-10.4); MONOCYTES 8.6 % (2-11); NEUTROPHILS 65.8 % (40-80); RBC 3.95 10x6/uL (4.20-6.10); RDW 15.2 % (11.5-14.5)
[2018-10-06 05:50] LABS: PLATELET COUNT 131 10x3/uL (130-400); WBC 5.6 10x3/uL (4.8-10.8)
[2018-10-06 05:55] LABS: ANION GAP 15.7 mmol/L (8-16); CALCIUM 8.2 mg/dL (8.5-10.1); CARBON DIOXIDE 27.5 mmol/L (21.0-32.0)
[2018-10-06 05:56] LABS: POTASSIUM - SERUM 4.2 mmol/L (3.5-5.1)
[2018-10-06 09:20] VITALS: BP 166/80
[2018-10-06 13:35] VITALS: BP 136/94
[2018-10-06 14:47] VITALS: Ht 167.6 cm; Wt 56.7 kg
[2018-10-06 17:42] VITALS: BP 158/73
--- NOTE | 2018-10-06 18:11 | MORECARE ---
CASE MANAGEMENT DISCHARGE SUMMARY PATIENT: JEANNETTE LYLES UNIT: [id number] ADM DATE: 10/05/18 AGE: 62 : 55 SEX: M ROOM/BED: D.2136 AUTHOR: GREGORY FAY PHYSICIAN: REFERRING PHYSICIAN: MARYLOU PADGETT MD DATE OF SERVICE: 10/06/18 Discharge Plan Patient Name: JEANNETTE LYLES Facility: [facility]:[place] : 1955 Planned Disposition: Home Anticipated Discharge Date: 10/07/18 Discharge Date: Expected LOS: 2 Initial Reviewer: [id number] Initial Review Date: 10/06/2018 Generated: 10/06/18 7:10 pm Comments DCP- Discharge Planning Updated by [email or web address]: Dany Montero on 10/06/18 5:[address] Patient Name: JEANNETTE LYLES Admission Status: ER Accout number: [id number] Admission Date: 10-05-2018 : 1955 Admission Diagnosis: Attending: MARYLOU PADGETT Current LOS: 1 Anticipated DC Date: 10-07-2018 Planned Disposition: Home Primary Insurance: MEDICARE A & B Discharge Planning Comments: CM MET WITH PT IN ROOM TO DISCUSS DISCHARGE PLANNING AND NEEDS. PT REPORTS LIVING AT HOME INDEPENDENTLY WITH FAMILY. PT HAS CANE, WALKER, SHOWER CHAIR, WHEELCHAIR AND HOME/PORTABLE OXYGEN FROM [facility]. PT HAS NO OUTSIDE SERVICES ASSISTING IN THE HOME. PT ATTENDS OUTPATIENT DIALYSIS, [facility], [place], 0700, [facility] MEDICAID TRANSPORT ($[address]). CM DISCUSSED AVAILABILITY OF HOME HEALTH, REHAB SERVICES AND MEDICAL EQUIPMENT. PT DENIES DISCHARGE NEEDS, REPORTS HIS BROTHER WILL PICK HIM UP FOR DISCHARGE HOME. House Worker General: Dany Montero DCPIA - Discharge Planning Initial Assessment Updated by [email or web address]: Dany Montero on 10/06/18 6:07 pm * Is the patient Alert and Oriented? Yes * How many steps to enter\exit or inside your home? NONE * PCP Maria Teresa HADDAD * Pharmacy [facility] IN [place] * Preadmission Environment Home with Family * ADLs Independent * Equipment Cane Oxygen Shower Chair Walker Wheelchair * Other Equipment HOME AND PORTABLE OXYGEN; [facility] IS PROVIDER * List name and contact numbers for known caregivers / representatives who currently or will assist patient after discharge: MONICA LYLES, SISTER, HARSHIL LYLES, BROTHER, GOOD DOMINGO, DTR, * Verbal permission to speak to the caregivers and representatives has been obtained from the patient. N/A * Community resources currently utilized Other * Please name any agencies selected above. OUTPATIENT DIALYSIS, [place], [facility], 0700, MEDICAID TRANSPORT ($[address]) * Additional services required to return to the preadmission environment? No * Can the patient safely return to the preadmission environment? Yes * Has this patient been hospitalized within the prior 30 days at any hospital? Yes Patient Name: JEANNETTE LYLES Page [id number] at 1811 All edits/amendments must be made on the electronic document DICTATION DATE: 10/06/181809 INVENTORY CONTROL MANAGER: LIN 10/06/181809 RPT#: [id number] CO DATE: STATUS: ADM IN [facility] [address] [place] [address] END OF REPORT
[2018-10-06 20:00] VITALS: BP 178/95
[2018-10-07 04:00] VITALS: BP 144/85
[2018-10-07 04:39] LABS: BASOPHILS 0.6 % (0-2); EOSINOPHILS 7.4 % (0-7); HEMATOCRIT 30.1 % (42.0-54.0); IMMATURE GRANULOCYTES 0.2 % (0-5); LYMPHOCYTES 20.2 % (15-50); MCH 28.5 pg (26.0-34.0); MCHC 33.2 g/dL (31.0-37.0); MCV 85.8 fL (80.0-100.0); MEAN PLATELET VOLUME 12.7 fL (7.4-10.4); MONOCYTES 12.6 % (2-11); PLATELET COUNT 136 10x3/uL (130-400); RBC 3.51 10x6/uL (4.20-6.10); RDW 15.3 % (11.5-14.5)
[2018-10-07 04:56] LABS: CALCIUM 7.7 mg/dL (8.5-10.1); CARBON DIOXIDE 25.4 mmol/L (21.0-32.0); CREATININE - SERUM 11.7 mg/dL (0.6-1.3); PHOSPHOROUS 3.1 mg/dL (2.5-4.9); POTASSIUM - SERUM 4.4 mmol/L (3.5-5.1)
[2018-10-07] MEDS ORDERED: ALBUTEROL2.5 MG/3 M INH (08:10)
--- NOTE | 2018-10-07 16:15 | MORECARE ---
CASE MANAGEMENT DISCHARGE SUMMARY PATIENT: JEANNETTE LYLES UNIT: [id number] ADM DATE: 10/05/18 AGE: 62 : 55 SEX: M ROOM/BED: D.2136 AUTHOR: NYA,GREGORY PHYSICIAN: REFERRING PHYSICIAN: MARYLOU PADGETT MD DATE OF SERVICE: 10/07/18 Discharge Plan Patient Name: JEANNETTE LYLES Facility: [facility]:[place] : 1955 Planned Disposition: Home Anticipated Discharge Date: 10/07/18 Discharge Date: 10/07/2018 Expected LOS: 2 Initial Reviewer: [email or web address] Initial Review Date: 10/06/2018 Generated: 10/07/18 5:15 pm Comments DCP- Discharge Planning Updated by [email or web address]: Dany Montero on 10/06/18 5:[address] Patient Name: JEANNETTE LYLES Admission Status: ER Accout number: [id number] Admission Date: 10-05-2018 : 1955 Admission Diagnosis: Attending: MARYLOU PADGETT Current LOS: 1 Anticipated DC Date: 10-07-2018 Planned Disposition: Home Primary Insurance: MEDICARE A & B Discharge Planning Comments: CM MET WITH PT IN ROOM TO DISCUSS DISCHARGE PLANNING AND NEEDS. PT REPORTS LIVING AT HOME INDEPENDENTLY WITH FAMILY. PT HAS CANE, WALKER, SHOWER CHAIR, WHEELCHAIR AND HOME/PORTABLE OXYGEN FROM [facility]. PT HAS NO OUTSIDE SERVICES ASSISTING IN THE HOME. PT ATTENDS OUTPATIENT DIALYSIS, [facility], MWF, 0700, [facility] MEDICAID TRANSPORT ($[address]). CM DISCUSSED AVAILABILITY OF HOME HEALTH, REHAB SERVICES AND MEDICAL EQUIPMENT. PT DENIES DISCHARGE NEEDS, REPORTS HIS BROTHER WILL PICK HIM UP FOR DISCHARGE HOME. Law Firm Partner: Dany Montero DCPIA - Discharge Planning Initial Assessment Updated by [email or web address]: Dany Montero on 10/06/18 6:07 pm * Is the patient Alert and Oriented? Yes * How many steps to enter\exit or inside your home? NONE * PCP Maria Teresa HADDAD * Pharmacy [facility] IN [place] * Preadmission Environment Home with Family * ADLs Independent * Equipment Cane Oxygen Shower Chair Walker Wheelchair * Other Equipment HOME AND PORTABLE OXYGEN; [facility] IS PROVIDER * List name and contact numbers for known caregivers / representatives who currently or will assist patient after discharge: MONICA LYLES, SISTER, HARSHIL LYLES, BROTHER, GOOD DOMINGO, DTR, * Verbal permission to speak to the caregivers and representatives has been obtained from the patient. N/A * Community resources currently utilized Other * Please name any agencies selected above. OUTPATIENT DIALYSIS, [facility], [facility], 0700, MEDICAID TRANSPORT ($[address]) * Additional services required to return to the preadmission environment? No * Can the patient safely return to the preadmission environment? Yes * Has this patient been hospitalized within the prior 30 days at any hospital? Yes External Providers External Provider: Paco Next Contact Date: 10/07/2018 Service Request Date: Service Type: Resolution: Reviewer: Comments: Last DP export: 10/06/18 5:11 p Patient Name: JEANNETTE LYLES Page 52395 at 1615 All edits/amendments must be made on the electronic document DICTATION DATE: 10/07/18 1615 BUSINESS TECHNOLOGY TEACHER: LIN 10/07/18 1615 RPT#: [id number] DC DATE:10/07/18 STATUS: DIS IN [facility] [address] [place] [address] END OF REPORT
--- NOTE | 2018-10-07 16:24 | MORECARE ---
CASE MANAGEMENT DISCHARGE SUMMARY PATIENT: JEANNETTE LYLES UNIT: [id number] ADM DATE: 10/05/18 AGE: 62 : 55 SEX: M ROOM/BED: D.2136 AUTHOR: GREGORY FAY PHYSICIAN: REFERRING PHYSICIAN: MARYLOU PADGETT MD DATE OF SERVICE: 10/07/18 Discharge Plan Patient Name: JEANNETTE LYLES Facility: [facility]:[place] : 1955 Planned Disposition: Home Anticipated Discharge Date: 10/07/18 Discharge Date: 10/07/2018 Expected LOS: 2 Initial Reviewer: [email or web address] Initial Review Date: 10/06/2018 Generated: 10/07/18 5:23 pm Comments DCP- Discharge Planning Updated by [email or web address]: Dany Montero on 10/07/18 3:[address] Patient Name: JEANNETTE LYLES Encounter No: [id number] : 1955 Primary Insurance: MEDICARE A & B Anticipated DC Date: 10-07-2018 Planned Disposition: Home DCP follow-up note: CM CALLED [facility], , SPOKE TO BRANDON AND REQUESTED [place] [facility]GEN TO BE DELIVERED TO PT'S ROOM FOR DISCHARGE. OXYGEN ARRIVED. PT IN DIALYSIS. CM RECEIIVED ORDER FOR NEBULIZER, LATER SPOKE TO PT IN ROOM WHO REPORTS HAVING MEDICAL EQUIPMENT FROM [facility] IN [place] AND WANTS HOME DELIVERY OF NEBULIZER AND DOES NOT WANT TO WAIT AT HOSPITAL. CHOICE SIGNED. CM CALLED [facility], , SPOKE TO BRANDON WHO WILL PROCESS ORDER WHEN "DETAILED WRITTEN ORDER" IS SIGNED AND RECEIVED FROM THE DOCTOR. CM REQUESTED HOME DELIVERY AND FAXED REFERRAL TO [facility] AT [phone]. Dany Montero, CASE MANAGEMENT DCP- Discharge Planning Updated by [email or web address]: Dany Montero on 10/06/18 5:[address] Patient Name: JEANNETTE LYLES Admission Status: ER Accout number: [id number] Admission Date: 10-05-2018 : 1955 Admission Diagnosis: Attending: MARYLOU PADGETT Current LOS: 1 Anticipated DC Date: 10-07-2018 Planned Disposition: Home Primary Insurance: MEDICARE A & B Discharge Planning Comments: CM MET WITH PT IN ROOM TO DISCUSS DISCHARGE PLANNING AND NEEDS. PT REPORTS LIVING AT HOME INDEPENDENTLY WITH FAMILY. PT HAS CANE, WALKER, SHOWER CHAIR, WHEELCHAIR AND HOME/PORTABLE OXYGEN FROM [facility]. PT HAS NO OUTSIDE SERVICES ASSISTING IN THE HOME. PT ATTENDS OUTPATIENT DIALYSIS, [facility], MWF, 0700, [facility] MEDICAID TRANSPORT ($[address]). CM DISCUSSED AVAILABILITY OF HOME HEALTH, REHAB SERVICES AND MEDICAL EQUIPMENT. PT DENIES DISCHARGE NEEDS, REPORTS HIS BROTHER WILL PICK HIM UP FOR DISCHARGE HOME. Hydrographic Engineer: Dany Montero DCPIA - Discharge Planning Initial Assessment Updated by [email or web address]: Dany Montero on 10/06/18 6:07 pm * Is the patient Alert and Oriented? Yes * How many steps to enter\\exit or inside your home? NONE * PCP Maria Teresa HADDAD * Pharmacy [facility] IN [place] * Preadmission Environment Home with Family * ADLs Independent * Equipment Cane Oxygen Shower Chair Walker Wheelchair * Other Equipment HOME AND PORTABLE OXYGEN; [facility] IS PROVIDER * List name and contact numbers for known caregivers / representatives who currently or will assist patient after discharge: MONICA LYLES, SISTER, HARSHIL LYLES, BROTHER, GOOD DOMINGO, DTR, * Verbal permission to speak to the caregivers and representatives has been obtained from the patient. N/A * Community resources currently utilized Other * Please name any agencies selected above. OUTPATIENT DIALYSIS, [facility], MWF, 0700, MEDICAID TRANSPORT ($[address]) * Additional services required to return to the preadmission environment? No * Can the patient safely return to the preadmission environment? Yes * Has this patient been hospitalized within the prior 30 days at any hospital? Yes Last DP export: 10/07/18 3:15 p Patient Name: JEANNETTE LYLES Page 12965 at 1624 All edits/amendments must be made on the electronic document DICTATION DATE: 10/07/181622 GENERAL FOUNDRY WORKER: LIN 10/07/181622 RPT#: [id number] DC DATE:10/07/18 STATUS: DIS IN [address] [id number] [place] [address] END OF REPORT
--- NOTE | 2018-10-08 06:08 | DS ---
PATIENT:JEANNETTE SAHA :55 MEDICAL RECORD: [id number] DISCHARGE SUMMARY ADMISSION DATE: 10/05/18 DISCHARGE DATE: 10/07/18 HISTORY OF PRESENT ILLNESS: Mr. Saha is a 62-year-old black male with end-stage renal disease and a Jehovah Witness, who has been stable without recent hospitalizations. He has had recent ER visits with complaining of phlegm production, wheezing, and chest tightness and that did respond to dialysis, readmitted after an episode of the above. HOSPITAL COURSE: In addition to UF on his dialysis, he was also begun on increasing updraft therapy, which relieved his symptoms. He did not have any evidence of pneumonia. His antibiotics were discontinued. His followup chest x-ray was clear. He had no wheezing at the time of discharge, and he is requesting beginning an albuterol inhaler as an outpatient, which we will do. At the time of discharge, he was back to baseline and will resume outpatient dialysis. DISCHARGE DIAGNOSES: 1. Chronic obstructive pulmonary disease with recent exacerbation, primarily bronchospastic. 2. End-stage renal disease. 3. Chronic anemia. 4. Taoism. PLAN: The patient will be discharged today. He will resume his outpatient diet, meds, and dialysis schedule. We will add albuterol inhaler 2 puffs every 4 hours p.r.n. to his discharge home meds, and we will follow up with him in 1 week in dialysis. TRANSINT:[id number] Voice Confirmation ID: [id number] DOCUMENT ID: [id number] LILIAM HADDAD MD at 0608 CC: [id number] DICTATION DATE: 10/07/18 0646 MACHINE GROUP LEADER: 10/07/18 0654 DIS IN 10/07/18 [facility] [address] [place] [id number]
--- NOTE | 2018-10-08 11:27 | MORECARE ---
CASE MANAGEMENT DISCHARGE SUMMARY PATIENT: JEANNETTE LYLES UNIT: [id number] ADM DATE: 10/05/18 AGE: 62 : 55 SEX: M ROOM/BED: D.2136 AUTHOR: GREGORY FAY PHYSICIAN: REFERRING PHYSICIAN: MARYLOU PADGETT MD DATE OF SERVICE: 10/08/18 Discharge Plan Patient Name: JEANNETTE LYLES Facility: [facility]:[place] : 1955 Planned Disposition: Home Anticipated Discharge Date: 10/07/18 Discharge Date: 10/07/2018 Expected LOS: 2 Initial Reviewer: [email or web address] Initial Review Date: 10/06/2018 Generated: 10/08/18 12:26 pm Comments DCP- Discharge Planning Updated by [email or web address]: Dany Montero on 10/07/18 3:[address] Patient Name: JEANNETTE LYLES Encounter No: [id number] : 1955 Primary Insurance: MEDICARE A & B Anticipated DC Date: 10-07-2018 Planned Disposition: Home DCP follow-up note: CM CALLED [facility], , SPOKE TO BRANDON AND REQUESTED [place] OXYGEN TO BE DELIVERED TO PT'S ROOM FOR DISCHARGE. OXYGEN ARRIVED. PT IN DIALYSIS. CM RECEIIVED ORDER FOR NEBULIZER, LATER SPOKE TO PT IN ROOM WHO REPORTS HAVING MEDICAL EQUIPMENT FROM [facility] IN [place] AND WANTS HOME DELIVERY OF NEBULIZER AND DOES NOT WANT TO WAIT AT HOSPITAL. CHOICE SIGNED. CM CALLED [facility], , SPOKE TO BRANDON WHO WILL PROCESS ORDER WHEN "DETAILED WRITTEN ORDER" IS SIGNED AND RECEIVED FROM THE DOCTOR. CM REQUESTED HOME DELIVERY AND FAXED REFERRAL TO [facility] AT [phone]. Dany Montero, CASE MANAGEMENT DCP- Discharge Planning Updated by [email or web address]: Dany Montero on 10/06/18 5:[address] Patient Name: JEANNETTE LYLES Admission Status: ER Accout number: [id number] Admission Date: 10-05-2018 : 1955 Admission Diagnosis: Attending: MARYLOU PADGETT Current LOS: 1 Anticipated DC Date: 10-07-2018 Planned Disposition: Home Primary Insurance: MEDICARE A & B Discharge Planning Comments: CM MET WITH PT IN ROOM TO DISCUSS DISCHARGE PLANNING AND NEEDS. PT REPORTS LIVING AT HOME INDEPENDENTLY WITH FAMILY. PT HAS CANE, WALKER, SHOWER CHAIR, WHEELCHAIR AND HOME/PORTABLE OXYGEN FROM [facility]. PT HAS NO OUTSIDE SERVICES ASSISTING IN THE HOME. PT ATTENDS OUTPATIENT DIALYSIS, [facility], MWF, 0700, [facility]ICA[facility]SP[facility] ($[address]). CM DISCUSSED AVAILABILITY OF HOME HEALTH, REHAB SERVICES AND MEDICAL EQUIPMENT. PT DENIES DISCHARGE NEEDS, REPORTS HIS BROTHER WILL PICK HIM UP FOR DISCHARGE HOME. Director Online Marketing: Dany Montero DCPIA - Discharge Planning Initial Assessment Updated by [email or web address]: Dany Montero on 10/06/18 6:07 pm * Is the patient Alert and Oriented? Yes * How many steps to enter\\exit or inside your home? NONE * PCP Maria Teresa HADDAD * Pharmacy [facility] IN [place] * Preadmission Environment Home with Family * ADLs Independent * Equipment Cane Oxygen Shower Chair Walker Wheelchair * Other Equipment HOME AND PORTABLE OXYGEN; [facility] IS PROVIDER * List name and contact numbers for known caregivers / representatives who currently or will assist patient after discharge: MONICA LYLES, SISTER, HARSHIL LYLES, BROTHER, GOOD DOMINGO, DTR, * Verbal permission to speak to the caregivers and representatives has been obtained from the patient. N/A * Community resources currently utilized Other * Please name any agencies selected above. OUTPATIENT DIALYSIS, [facility], MWF, 0700, MEDICAID TRANSPORT ($[address]) * Additional services required to return to the preadmission environment? No * Can the patient safely return to the preadmission environment? Yes * Has this patient been hospitalized within the prior 30 days at any hospital? Yes Last DP export: 10/07/18 3:24 p Patient Name: JEANNETTE LYLES Page 98914 at 1127 All edits/amendments must be made on the electronic document DICTATION DATE: 10/08/181125 MISSILE INSPECTOR: LIN 10/08/181125 RPT#: [id number] DC DATE:10/07/18 STATUS: DIS IN [place] [id number] [place] [address] END OF REPORT
== END 2018-10-07 15:10 | disposition home or self-care (01) | DRG 291 ==
LOC: D.ER 05:36 → D.M2 07:29 → OBSVTIME 07:29 → D.M2 17:40
PROVIDERS: Family Medicine; Internal Medicine Nephrology; ADMIT Internal Medicine Nephrology; ATTEND Internal Medicine Nephrology
PROC: 5A1D70Z Performance of Urinary Filtration, Intermittent, Less than 6 Hours Per Day (ICD-10-PCS; principal; 2018-10-05)
DX: I13.2 Hypertensive heart and chronic kidney disease with heart failure and with stage 5 chronic kidney disease, or end stage renal disease (principal); N18.6 End stage renal disease; E11.22 Type 2 diabetes mellitus with diabetic chronic kidney disease; I50.9 Heart failure, unspecified; Z99.2 Dependence on renal dialysis; D64.9 Anemia, unspecified; E87.5 Hyperkalemia; J44.9 Chronic obstructive pulmonary disease, unspecified; Z86.73 Personal history of transient ischemic attack (TIA), and cerebral infarction without residual deficits

== ENCOUNTER → 2018-11-05 09:54 | Outpatient (CLI) | payer MEDICARE ==
[2018-10-06 14:47] VITALS: BMI 20.1
[~2018-11-05 09:54] MED LIST changes: +ALBUTEROL2.5 MG/3 M INH
== END | disposition home or self-care (01) ==
LOC: D.RT 09:54
PROVIDERS: ATTEND Internal Medicine Pulmonary Disease
DX: R91.1 Solitary pulmonary nodule (principal); R06.00 Dyspnea, unspecified

== ENCOUNTER 2019-04-20 06:52 | Emergency (ER) | payer MEDICARE ==
[~2019-04-20] VITALS: Ht 167.6 cm; Wt 56.8 kg
[2019-04-20 06:55] VITALS: Ht 167.6 cm; Wt 56.8 kg
[2019-04-20 07:23] LABS: ANION GAP 20.7 mmol/L (8-16); CALCIUM 7.3 mg/dL (8.5-10.1); CARBON DIOXIDE 23.3 mmol/L (21.0-32.0); CREATININE - SERUM 10.5 mg/dL (0.6-1.3)
[2019-04-20 07:29] LABS: ALBUMIN 3.8 g/dL (3.4-5.0); BILIRUBIN - TOTAL 0.39 mg/dL (0.2-1.3)
[2019-04-20 08:02] LABS: BASOPHILS 0.3 % (0-2); EOSINOPHILS 11.3 % (0-7); HEMATOCRIT 44.6 % (42.0-54.0); HEMOGLOBIN 14.7 g/dL (13.5-17.5); IMMATURE GRANULOCYTES 0.3 % (0-5); LYMPHOCYTES 20.3 % (15-50); MCH 33.3 pg (26.0-34.0); MCV 100.9 fL (80.0-100.0); MEAN PLATELET VOLUME 12.2 fL (7.4-10.4); MONOCYTES 9.3 % (2-11); NEUTROPHILS 58.5 % (40-80); RBC 4.42 10x6/uL (4.20-6.10); RDW 13.9 % (11.5-14.5); WBC 3.5 10x3/uL (4.8-10.8)
[2019-04-20 08:07] LABS: PLATELET COUNT 101 10x3/uL (130-400)
[2019-04-20 08:19] VITALS: BP 166/84
== END 2019-04-20 08:20 | disposition home or self-care (01) ==
LOC: D.ER 06:52
PROVIDERS: Family Medicine
DX: B34.9 Viral infection, unspecified (principal); I12.9 Hypertensive chronic kidney disease with stage 1 through stage 4 chronic kidney disease, or unspecified chronic kidney disease; E11.22 Type 2 diabetes mellitus with diabetic chronic kidney disease; N18.9 Chronic kidney disease, unspecified; Z86.73 Personal history of transient ischemic attack (TIA), and cerebral infarction without residual deficits; Z99.2 Dependence on renal dialysis

== ENCOUNTER → 2020-07-06 07:56 | Outpatient (CLI) | payer MEDICARE ==
[2020-02-23 09:07] VITALS: BMI 21.0
[~2020-07-06 07:56] MED LIST changes: +DEPAKOTE ER500 MG PO; +KEPPRA500 MG PO
--- NOTE | 2020-07-10 09:26 | ST ---
PATIENT:JEANNETTE LYLES MEDICAL RECORD: [id number] SEX: M LOCATION:[facility] ORDER #: ADMISSION DATE: 07/06/20 AGE OF PATIENT: 64 REFERRING PHYSICIAN: INTERPRETING PHYSICIAN: ÓSCAR PIMENTEL MD DATE OF SERVICE: 07/06/2020 NUCLEAR STRESS TEST GATED: Gated is normal with normal wall motion. Normal wall thickening. Calculated EF 52%. SPECT IMAGING: SPECT imaging was performed. FINDINGS: 1. Short axis view: Short axis view shows reversible defect from the very inferior wall down to the inferior apex. 2. Horizontal axis: This is confirmed in the horizontal axis with a reversible defect from the mid inferior wall down to the inferior apex. 3. Vertical axis: Vertical axis shows reversible apical defect. FINAL IMPRESSION: 1. Normal gated, normal wall motion, normal EF 52%. 2. Abnormal SPECT imaging with reversible defects along the inferior wall extending to the inferior apex. FINAL RECOMMENDATION: This gentleman with ongoing symptoms and multiple risk factors for coronary artery disease. Scan is concerning for active coronary ischemia. LV function remains normal. Consider diagnostic angiography if clinically indicated. TRANSINT:[id number] Voice Confirmation ID: [id number] DOCUMENT ID: [id number] ÓSCAR PIMENTEL MD at 0926 CC: [id number] DICTATION DATE: 07/07/20 0854 SAND AND GRAVEL PLANT OPERATOR: 07/08/20 0108 DEP CLI 07/06/20 [address] [place] [address]
== END | disposition home or self-care (01) ==
LOC: D.HCCECHO 07:56
PROVIDERS: ATTEND Internal Medicine Interventional Cardiology
DX: I25.10 Atherosclerotic heart disease of native coronary artery without angina pectoris (principal)

== ENCOUNTER 2020-07-13 11:08 | Day surgery (SDC) | payer MEDICARE ==
[~2020-07-13] VITALS: Ht 167.6 cm; Wt 53.5 kg
--- NOTE | ~2020-07-13 | HEMODYNAMI ---
PATIENT:JEANNETTE LYLES MEDICAL RECORD: [id number] : 55 LOCATION:[facility] ADMISSION DATE: 07/13/20 Generatedon:113:26 Patient name: JEANNETTE LYLES Patient #: [id number] SSN: [id number] : 1955 Date of study: 07/13/2020 Page: Of Hemodynamic Procedure Report Patient Data Patient Demographics Procedure consent was obtained First Name: JEANNETTE Gender: Male Last Name: TRUPTI : 1955 Middle Initial: W Age: 64 year(s) Patient #: [id number] Race: Black SSN: [id number] Additional ID: [id number] Contact details Address: [address] [place] [address] State: [place] City: [place] Zip code: [address] Past Medical History Allergies: No known allergies Admission Admission Data Admission Date: 07/13/2020 Admission Time: 11:08 Arrival Date: 07/13/2020 Arrival Time: 0:00 Admit Source: Other Insurance Payor: Medicare HIC #: [id number] Height (in.): 65.75 BSA: 1.59 (m2) Height (cm.): 167 BMI: 19 (kg/m2) Weight (lbs.): 116.85 Weight (kg.): 53 Lab Results Lab Result Date: 07/13/2020 Lab Result Time: 0:00 Biochemistry Name Units Result Min Max BUN mg/dl 24 --(----)-* 7 18 Creatinine mg/dl 8.6 --(----)-* 0.6 1.3 eGFR ml/min 7.859656 *-(----)-- 90 120 AM Procedure Procedure Types Cath Procedure Diagnostic Procedure [facility] w/Coronaries Sedation Charges Moderate Sedation 10-24 minutes Procedure Description Procedure Date Procedure Date: 07/13/2020 Procedure Start Time: 13:12 Procedure End Time: 13:23 Procedure Staff Name Function Josh Bill MD Performing Physician Gerardo Hansen RN Nurse Diego Marques RN Nurse Rita Renee RT Monitor Carla Victoria RT Scrub Indication Chest pain Atrial fibrillation Procedure Data Cath Procedure Fluoroscopy Diagnostic fluoroscopy Total fluoroscopy Time: 1.1 time: 1.1 min min Diagnostic fluoroscopy Total fluoroscopy dose: 164 dose: 164 mGy mGy Contrast Material Contrast Material Type Amount (ml) Isovue 300 51 Entry Location Entry Primary Successful Side Size Upsize Upsize Entry Closure Succes sful Closure Location (Fr) 1 (Fr) 2 (Fr) Remarks Device Remarks Femoral Right 5 Fr Exoseal artery Estimated blood loss: 5 ml Diagnostic catheters Device Type Used For End Catheter Placement MULTIPACK JL 4.0 5Fr Left Coronary catheter Angiography MULTIPACK 3DRC 5Fr Right Coronary catheter Angiography MULTIPACK Pigtail 5 Fr LV Angiography catheter Procedure Complications No complications Procedure Medications Medication Administration Route Dosage 0.9% NaCl I.V. 100 ml/hr Oxygen etCO2 Nasal cannula 2 l/min Heparin Flush Bag added to field 2 bags (1000units/500ml NS) Lidocaine 2% added to field 20 Versed I.V. 1 mg Fentanyl I.V. 50 mcg Hemodynamics Rest BSA: 1.59 (m2) O2 Consumption: Estimated: 162.48 (ml/min) O2 Consumption indexed : Estimated:102.19 (ml/min/m) Heart Rate: 31 (bpm) Pressure Samples Time Site Value (mmHg) Purpose Heart Use Rate(bpm) 13:19 LV 153/-5,0 Snapshot 66 Gradients Valve Time Site Site Mean SEP/DFP Peak To Heart Use 1 2 (mmHg) (sec/min) Peak Rate (mmHg) (bpm) Aortic 13:19 LV AO 63 Snapshots Pre Cath Intra NCS Post Cath Vital Signs Time Heart Resp SPO2 etCO2 NIBP (mmHg) Rhythm Pain Sedation Rate (ipm) (%) (mmHg) Status Level (bpm) 13:08:35 61 13 100 0 194/90(174) NSR 0 (11) 10(A) , No pain 13:13:12 61 10 100 35.2 189/79(153) NSR 0 (11) 9(A) , No pain 13:17:46 61 13 100 32.2 189/83(153) NSR 0 (11) 10(A) , No pain 13:22:21 61 12 100 29.2 196/82(156) NSR 0 (11) 10(A) , No pain Medications Time Medication Route Dose Verified Delivered Reason Notes Eff ectiveness by by 13:06:43 0.9% NaCl I.V. 100 Josh Diego used for ml/hr St Brandon Marques RN procedure MD 13:06:52 Oxygen etCO2 2 Josh Diego used for Nasal l/min St Brandon Marques RN procedure cannula 13:07:00 Heparin Flush added 2 Josh Diego used for Bag to bags St Brandon Marques RN procedure (1000units/500ml field NS) 13:07:12 Lidocaine 2% added 20ml Josh Diego for local to vial St Brandon Marques RN anesthetic field 13:09:09 Versed I.V. 1 mg [address] Diego [address] [facility] Brandon Marques RN sedation 13:09:15 Fentanyl I.V. 50 Josh Diego for mcg St Brandon Marques RN sedation Procedure Log Time Note 12:20:05 Informed consent obtained and on chart 12:20:19 Arrival Date: 07/13/2020 12:00:00 AM 12:20:20 Admit Source: Other 12:20:26 Diagnostic Cath Status : Elective 12:20:49 Indication : Chest pain 12:20:57 Indication : Atrial fibrillation 12:21:04 Insurance Payor : Medicare 12:23:01 ACC Patient presents with Stable Angina CCS Anginal Class 2--Slight limitation of ordinary activity. 12:23:04 Procedure Status Elective Heart Cath (OP). 12:23:06 Time tracking: Regular hours (M-F 7:00 - 5:00) 12:23:11 Plan of Care:Hemodynamics will remain stable., Cardiac rhythm will remain stable., Comfort level will be maintained., Respiratory function will remain adequate., Patient/ family verbilizes understanding of procedure., Procedure tolerated without complication., Recovers from procedure without complications.. 12:23:22 H&P Date Dictated: 06/27/2020 Within 30 days and on chart.. 12:23:29 Family in waiting room. 12:23:31 Patient NPO since Midnight. 12:23:40 Patient allergic to No known allergies 12:25:22 Lab Result : eGFR AM 7.033494 ml/min 12:25:22 Lab Result : Creatinine 8.6 mg/dl 12:25:22 Lab Result : BUN 24 mg/dl 12:55:00 Rita Víctor RT(R) sent for patient. Start room use. 13:00:58 Vital chart was started 13:01:08 Patient received from Pre/Post Procedure Room to CCL 1 Alert and oriented. Tansferred to table in Supine position. 13:01:09 Warm blankets applied, and cari hugger turned on for patient comfort. 13:01:09 Correct patient and procedure confirmed by team. 13:01:10 ECG and BP/O2 sat monitors applied to patient. 13:01:11 Baseline sample Acquired. 13:01:12 Pre-procedure instructions explained to patient. 13:01:12 Pre-op teaching completed and patient verbalized understanding. 13:01:17 Is the patient allergic to Iodine/contrast media? Yes. 13:01:19 Was the patient premedicated? Yes 13:01:20 Is patient on blood thinner?No 13:01:24 Patient diabetic? No. 13:01:26 If diabetic: On Metformin? N/A 13:01:27 ----Pre-sedation anethsthesia assessment.---- 13:01:30 Previous problem with sedation/anesthesia? No ? 13:06:43 0.9% NaCl 100 ml/hr I.V. was administered by Diego Marques RN; used for procedure; Verbal order read back and verified. 13:06:52 Oxygen 2 l/min etCO2 Nasal cannula was administered by Diego Marques RN; used for procedure; Verbal order read back and verified. 13:07:00 Heparin Flush Bag (1000units/500ml NS) 2 bags added to field was administered by Diego Marques RN; used for procedure; Verbal order read back and verified. 13:07:12 Lidocaine 2% 20ml vial added to field was administered by Diego Marques RN; for local anesthetic; Verbal order read back and verified. 13:07:45 Snore? Yes 13:07:47 Sleep apnea? No 13:07:47 Deviated septum? No 13:07:48 Opens mouth fully? Yes 13:07:49 Sticks out tongue? Yes 13:07:51 Airway obstruction? No ? 13:07:55 Dentures? Yes IN TIGHT 13:08:02 Pre procedure: right dorsailis pedis pulse 2+ Normal; easily identifiable; not easily obliterated 13:08:04 Pre procedure: left dorsailis pedis pulse 2+ Normal; easily identifiable; not easily obliterated 13:08:06 Patient pain scale 0/10 ?. 13:08:16 IV patent on arrival in right forearm with 0.9% NaCl at [facility]. 13:08:18 Lab results completed and on chart. 13:08:22 Right groin area was prepped with chlora-prep and draped in sterile fashion 13:08:23 Alarms reviewed by R. N. 13:08:23 Sharps counted by scrub and verified by R.N. 13:08:48 Physician arrived 13:08:49 --------ALL STOP TIME OUT------ 13:08:50 Final Timeout: patient, procedure, and site verified with staff and physician. All members of the team are in agreement. 13:08:51 Right groin site verified by team. 13:08:54 Fire Safety Assessment: A--An alcohol-based skin anteseptic being used preoperatively., C--Open oxygen or nitrous oxide is being used., D--An ESU, laser, or fiber-optic light is being used. 13:09:09 Versed 1 mg I.V. was administered by Diego Marques RN; for sedation; Verbal order read back and verified. 13:09:15 Fentanyl 50 mcg I.V. was administered by Diego Marques RN; for sedation; Verbal order read back and verified. 13:09:44 Physical assessment completed. ASA score P 2 - A patient with mild systemic disease as per Josh Bill MD. 13:09:55 5) <15 or on dialysis Very severe, or end stage kidney failure. 13:10:02 Maximum allowable contrast dose (3.7 X eGFR X 0.75)22 ml. 13:10:06 Sedation plan: IV Moderate Sedation Medication:Versed, Fentanyl 13:10:27 Patient Height : 65.75 inches 13:10:31 Patient Weight : 116.85 lbs 13:10:49 Use device set Femoral Dx 13:10:50 ACIST Syringe (66930) opened to sterile field. 13:10:50 Bag Decanter () opened to sterile field. 13:10:51 Medline Cath Pack ([id number]) opened to sterile field. 13:10:52 ACIST Hand Control (93135) opened to sterile field. 13:10:52 ACIST Manifold (25852) opened to sterile field. 13:10:53 DIAGNOSTIC Multipack 5Fr catheter set (PV5105) opened to sterile field. 13:10:53 Tegaderm 4 x 4 (1626W) opened to sterile field. 13:10:54 SHEATH 5FR [place] (KFX549) opened to sterile field. 13:10:55 EMERALD Guide Wire (699-242) opened to sterile field. 13:11:08 Procedure started. 13:11:08 Full Disclosure recording started 13:12:44 Local anesthetic to right femoral artery with Lidocaine 2% by Josh Bill MD.INITIAL ACCESS ONLY 13:12:53 A 5 Fr sheath was inserted into the Right Femoral artery 13:14:32 A MULTIPACK JL 4.0 5Fr catheter was advanced over the wire and used for Left Coronary Angiography. 13:14:49 LCA angiography performed. 13:14:53 Injector settings: Ml/sec: 3, Volume: 6, 13:15:44 Catheter removed. 13:16:00 A MULTIPACK 3DRC 5Fr catheter was advanced over the wire and used for Right Coronary Angiography. 13:16:32 RCA angiography performed. 13:16:35 Injector settings: Ml/sec: 3, Volume: 6, 13:17:17 Catheter removed. 13:17:32 A MULTIPACK Pigtail 5 Fr catheter was advanced over the wire and used for LV Angiography. 13:19:36 LV hemodynamics recorded. 13:19:38 LV gram done using HENRIQUEZ 13:19:49 EF : 55 % 13:19:54 Injector settings: Ml/sec: 5, Volume: 15, 13:19:59 EXOSEAL 5Fr (EX500) opened to sterile field. 13:20:11 Catheter removed. 13:20:20 Sheath removed intact; hemostasis achieved with Exoseal to the Right Femoral artery. 13:20:22 Procedure ended.(Physican Out) 13:20:58 Fluoroscopy time 01.10 minutes. 13:21:07 Fluoroscopy dose: 164 mGy 13:21:07 Flurop Dose total: 164 13:21:13 Dose Area Product 7857 mGy/cm. 13:21:25 Contrast amount:Isovue 300 51ml. 13:21:27 Maximum allowable dose exceeded? Yes. 13:21:28 Sharps counted by scrub and verified by R.N. 13:21:29 Insertion/operative site no bleeding no hematoma. 13:21:32 Post-op/insertion site Right Femoral artery dressed using a 4 x 4 and Tegaderm. 13:21:35 Post right femoral artery:stable 13:21:36 Post Procedure Pulses reassessed and unchanged 13:21:39 Post procedure rhythm: unchanged. 13:21:41 Estimated blood loss: 5 ml 13:21:44 Post procedure instruction explained to patient.Patient verbalizes understanding. 13:21:44 Patient needs reinforcement of post procedure teaching. 13:22:47 Procedure type changed to Cath procedure, Diagnostic procedure, LHC, C w/Coronaries, Sedation Charges, Moderate Sedation 10-24 minutes 13:22:48 Procedure and supply charges have been captured, reviewed, submitted and are correct. 13:22:52 Procedure Complication : No complications 13:22:55 Vital chart was stopped 13:22:57 [facility] Findings: mild to moderate CAD (<70%) 13:22:59 Operative report dictated upon procedure completion. 13:22:59 See physician's report for complete and final results. 13:23:02 Report given to Pre/Post Procedure Room. 13:23:04 Patient transfered to Pre/Post Procedure Room with Stretcher. 13:23:05 Procedure ended. 13:23:05 Full Disclosure recording stopped 13:23:11 End room use (Document Last) Device Usage Item Name Manufacture Quantity Catalog Hospital Part Current Minimal L ot# / Number Charge Number Stock Stock Serial# Code ACIST Acist 1 21229 [id number] [id number] 20 Syringe Medical (98147) Systems Inc Bag Microtek 1 [id number] 91611 363631 5 Decanter Medical Inc. () Medline Medline 1 [id number] 71463 [id number] 5 Cath Pack ([id number]) ACIST Hand Acist 1 71982 970078 356416 939713 5 Control Medical (39916) Systems Inc ACIST Acist 1 20571 790302 680024 216160 5 Manifold Medical (84573) Systems Inc DIAGNOSTIC Cardinal 1 [id number] 449446 08559 263814 30 mChron Health 5Fr catheter set (OG4536) Tegaderm 4 3M 1 1626W 028660 387517 768674 5 x 4 (1626W) SHEATH 5FR Terumo 1 [id number] 258960 240785 266998 [address] [place] (UOJ562) [facility] Cardinal 1 949-712 586916 210820 505888 5 Guide Wire [facility] (046-691) MULTIPACK Cardinal 1 079667 5 JL 4.0 5Fr Health catheter MULTIPACK Cardinal 1 106956 5 3DRC 5Fr Health catheter MULTIPACK Cardinal 1 718443 5 Pigtail 5 Health Fr catheter EXOSEAL 5Fr Cardinal 1 EX500 214339 016369 277484 10 (EX500) Health Signature Audit [place] Stage Time Signature Unsigned Intra-Procedure 07/13/2020 Rita Renee 1:23:53 PM RT(R) Intra-Procedure 07/13/2020 Rita Renee 1:24:47 PM RT(R) Intra-Procedure 07/13/2020 Diego Marques RN 1:25:13 PM Intra-Procedure 07/13/2020 Josh Lam 1:26:52 PM Brandon [address] [place] [address]
[2020-07-13] MEDS ORDERED: NITROQUICK0.4 MG SL (11:45)
[2020-07-13] MEDS ORDERED: FLUTICASONE PRO16 GM NASAL (11:45)
[2020-07-13] MEDS ORDERED: RENA-VITE TABL0.8 MG PO (11:45)
[2020-07-13] MEDS ORDERED: VELTASSA8.4 GM PO (11:46)
[2020-07-13] MEDS ORDERED: PROCARDIA XL60 MG PO (11:46)
[2020-07-13 11:49] VITALS: BP 117/69; Ht 167.6 cm; Wt 53.5 kg
[2020-07-13] MEDS ORDERED: PREDNISONE20 MG PO (12:00)
[2020-07-13 12:02] LABS: BASOPHILS 0.8 % (0-2); EOSINOPHILS 0.1 % (0-7); HEMATOCRIT 32.2 % (42.0-54.0); HEMOGLOBIN 10.7 g/dL (13.5-17.5); MCH 32.9 pg (26.0-34.0); MCHC 33.3 g/dL (31.0-37.0); MCV 98.7 fL (80.0-100.0); MEAN PLATELET VOLUME 9.5 fL (7.4-10.4); MONOCYTES 1.7 % (2-11); NEUTROPHILS 89.4 % (40-80); PLATELET COUNT 148 10x3/uL (130-400); RBC 3.27 10x6/uL (4.20-6.10); RDW 14.2 % (11.5-14.5); WBC 4.6 10x3/uL (4.8-10.8)
[2020-07-13 12:18] LABS: ANION GAP 17.9 mmol/L (8-16); CARBON DIOXIDE 25.5 mmol/L (21.0-32.0); CHOL - HDL RATIO 1.9 ratio (2.3-4.9); CREATININE - SERUM 8.6 mg/dL (0.6-1.3); LDL-HDL RATIO 0.9 ratio (1.5-3.5); POTASSIUM - SERUM 4.4 mmol/L (3.5-5.1)
--- NOTE | 2020-07-13 13:40 | NUR ---
PT ARRIVES TO ROOM 3 VIA STRETCHER S/P HEART CATH. SEE PROPELLANT CHARGE ZONE ASSEMBLER. PT BOTHER AT BEDSIDE , DR CUNNINGHAM AT BEDSIDE TO REVIEW FINDINGS ,CALL LIGHT WITHIN REACH
--- NOTE | 2020-07-13 13:50 | NUR ---
DR CUNNINGHAM NOTIFIED OF PT C/O INDIGESTION AND BP 203/85 HR 63 NEW ORDER RECIEVED, PT IS NOTIFIED OF THIS AND TREATMENT PLAN
--- NOTE | 2020-07-13 14:05 | NUR ---
PT RESTING QUIETLY, BP 199/88 HR 61, SATS 99% RA, RIGHT GROIN SOFT WITH OUT OOZING OR BLEEDING , NO PALPABLE HEMATOMA, EXTREMITY WARM AND DRY AND PEDAL PULSE PALPABLE, IV INFUSING PER ORDERS, CALL LIGHT WITH IN REACH, BROTHER AT BEDSIDE, DENIES NEEDS STATES INDIGESTION UNRELIEVED WITH TUMS, SIPS OF SPRITE GIVEN.
--- NOTE | 2020-07-13 14:20 | NUR ---
RESTING QUIETLY , BP 201/88 HR 60, SATS 98% RA, RIGHT GROIN SOFT WITHOUT OOZING OR BLEEDING NO PALPABLE HEMATOMA , EXTREMITY WARM AND PEDAL PULSE PALPABLE, PT REPORTS SOME EASING OF THE INDIGESTION, DENIES PAIN OR NEEDS, IV INFUSING PER ORDERS, CALL LIGHT WITHIN REACH
--- NOTE | 2020-07-13 14:35 | NUR ---
DR CUNNINGHAM NOTIFIED OF PT STATUS AND CURRENT BP READING
--- NOTE | 2020-07-13 14:45 | NUR ---
PT PLACED IN SEMI FOWLERS POSITION, SANDWICH BOX AND PO FLUIDS GIVEN,
--- NOTE | 2020-07-13 14:59 | NUR ---
PT REPORTS THAT AFTER SANDWICH AND SITTING UP HIS INDIGESTION HAS TOTALLY RESOLVED, BP 206/[address]IMENTEL NOTIFIED AND AWARE. SATS 98% RA, RIGHT GROIN SOFT WITHOUT OOZING OR BLEEDING , EXTREMITY WARM AND DRY PEDAL PULSE PALPABLE, PT DENIES PAIN OR NEEDS, CALL LIGHT WITHIN REACH
--- NOTE | 2020-07-13 15:09 | NUR ---
NO NEW ORDERS PER DR CUNNINGHAM
--- NOTE | 2020-07-13 15:30 | NUR ---
PT RESTING QUIETLY VISITING WITH BROTHER AT BEDSIDE, VSS, SR NO ECTOPY, RIGHT GROIN STABLE NO OOZING OR BLEEDING NO PALPABLE HEMATOMA, PEDAL PULSE PALPABLE, DENIES PAIN OR NEEDS, CALL LIGHT WITHIN REACH
--- NOTE | 2020-07-13 15:45 | NUR ---
DISCHARGE INSTRUCTIONS REVIEWED WITH PT AND HIS BROTHER BOTH VERBALIZED UNDERSTANDING, 20G IV CATHETER REMOVED AND INTACT 2 X 2 DRESSING APPLIED, RIGHT GROIN OPSITE C/D/I, PEDAL PULSE PALPABLE, DENIES PAIN OR NEEDS.
--- NOTE | 2020-07-13 15:52 | OP ---
PATIENT NAME: JEANNETTE LYLES MEDICAL RECORD: [id number] :55 LOCATION:[facility] ADMISSION DATE: SURGEON: ÓSCAR PIMENTEL MD DATE OF OPERATION: 07/13/2020 PROCEDURE PERFORMED: Left heart catheterization, selective coronary angiography, right femoral artery approach. CATHETERS: A 5-Azeri sheath, 5/4 left and right Aruna, 5/4 pig. The procedure was well tolerated. The patient was returned to the montes. Sheath removed. ExoSeal device placed. FINDINGS: Left ventriculography in 30 degree HENRIQUEZ view; normal wall motion, normal systolic function. CORONARY ANATOMY: Left main: Left main is free of disease. LAD: Free of disease in the diagonal system. Circumflex: Free of disease in the marginal system. Right coronary artery: Dominant artery, gives rise to PDA, free of disease. IMPRESSION: Normal systolic function. Normal coronary anatomy. TRANSINT:[id number] Voice Confirmation ID: [id number] DOCUMENT ID: [id number] ÓSCAR PIMENTEL MD at 1552 CC: [id number] DICTATION DATE: 07/13/20 1326 SET UP MECHANIC STAMPING MACHINES: 07/13/20 1447 [facility] [address] [place] [address]
--- NOTE | 2020-07-13 16:00 | NUR ---
PT DISCHARGE PER ORDERS TAKEN TO BROTHER VEHICLE VIA WHEELCHAIR
== END 2020-07-13 16:00 | disposition home or self-care (01) ==
LOC: D.CATH 11:08
PROVIDERS: ATTEND Internal Medicine Interventional Cardiology
DX: R07.9 Chest pain, unspecified (principal); I25.10 Atherosclerotic heart disease of native coronary artery without angina pectoris; I48.91 Unspecified atrial fibrillation; R94.31 Abnormal electrocardiogram [ECG] [EKG]; I10 Essential (primary) hypertension; R01.1 Cardiac murmur, unspecified